=== PATIENT | female | born 1965 | race Two or more races ===

== ENCOUNTER → 2016-04-20 | Outpatient (CLI) | payer BC ==
[2016-04-20 10:05] LABS: Basophils % (A) 1 %; CH 24.4; CHCM 31.5; Eosinophils # (A) 0.3 k/uL (0-0.7); Eosinophils % (A) 5 %; HCT 39.8 % (34.0-46.0); HDW 2.71; HGB 12.3 gm/dL (11.4-16.0); Hypochromasia Slight; Luc # (Auto) 0.14; Luc % (Auto) 2; Lymphocytes # (A) 3.5 k/uL (1.0-4.8); Lymphocytes % (A) 46 %; MCH 24.1 pg (25.0-35.0); MCHC 30.9 g/dL (31.0-37.0); MCV 78.1 fL (80.0-100.0); Mean Platelet Volume 6.9; Monocytes # (A) 0.5 k/uL (0-1.0); Monocytes % (A) 7 %; Neutrophils # (A) 3.1 k/uL (1.3-7.7); Neutrophils % (A) 41 %; RBC 5.09 m/uL (3.80-5.40); RDW 14.7 % (11.5-15.5); WBC 7.6 k/uL (3.8-10.6); WBC (Perox) 7.66
[2016-04-20 10:55] LABS: ALT 39 U/L (9-52); AST 18 U/L (14-36); Alkaline Phosphatase 98 U/L (38-126); Anion Gap 14 mmol/L; Blood Urea Nitrogen 13 mg/dL (7-17); C Reactive Protein 11.5 mg/L (<10.0); Calcium 10.1 mg/dL (8.4-10.2); Carbon Dioxide 25 mmol/L (22-30); Chloride 103 mmol/L (98-107); Cholesterol 137 mg/dL (<200); Glucose 131 mg/dL (74-99); HDL Cholesterol 56 mg/dL (40-60); Magnesium 1.7 mg/dL (1.6-2.3); Non-African American GFR(MDRD) >60 (>60 ml/min/1.73 sqM); Potassium 4.6 mmol/L (3.5-5.1); Sodium 142 mmol/L (137-145); Total Bilirubin 0.3 mg/dL (0.2-1.3); Total Protein 7.9 g/dL (6.3-8.2); Triglycerides 146 mg/dL (<150)
[2016-04-20 11:12] LABS: Erythrocyte Sedimentation Rate 20 mm/hr (0-20)
[2016-04-20 11:13] LABS: Hemoglobin A1C 8.1 % (4.2-6.1)
== END | disposition home or self-care (01) ==
LOC: MERGE 08:51 → LABWHC1 08:51
PROVIDERS: ATTEND Internal Medicine
DX: E11.9 Type 2 diabetes mellitus without complications (principal); E78.5 Hyperlipidemia, unspecified; I10 Essential (primary) hypertension; E55.9 Vitamin D deficiency, unspecified
CPT/HCPCS: 36415; 80053; 80061; 82306; 83036; 83735; 85025; 85652; 86140

== ENCOUNTER → 2016-05-21 | Outpatient (CLI) | payer BC, OTHER ==
--- NOTE | 2016-05-21 10:57 | FL ---
EXAMINATION TYPE: FL UGI w esophagus w sm bowel DATE OF EXAM: 05/21/2016 10:49 AM COMPARISON: Abdominal x-ray February 26, 2016. HISTORY: Epigastric pain per order. Mid abdominal pain with heartburn and reflux-like symptoms. TECHNIQUE: A double contrast UGI study is performed with small bowel follow through. A total of 56 s econds of fluoroscopic time was utilized during procedure. FINDINGS: Engineering Production Worker image of the abdomen shows no gross abnormality. The esophagus shows normal motility and emptying into the stomach. No evidence of hiatal hernia or s tricture noted. The stomach shows normal distensibility, peristalsis, and mucosal folds. No evidence of any mass or ulcer disease. A few episodes of gastroesophageal reflux were seen during real-time performance of st udy. The duodenal bulb and sweep are unremarkable. The small bowel study shows normal transit to the colon in less than 60 minutes. There is normal muc osal fold pattern throughout the small bowel. There is no evidence of any stricture or filling defec t noted. The terminal ileum is unremarkable. IMPRESSION: Gastroesophageal reflux is visualized otherwise unremarkable study.
== END | disposition home or self-care (01) ==
LOC: RADFLMAIN 09:06
PROVIDERS: ATTEND Internal Medicine
DX: K21.9 Gastro-esophageal reflux disease without esophagitis (principal)
CPT/HCPCS: 74245

== ENCOUNTER → 2016-08-17 | Outpatient (CLI) | payer BC ==
[2016-08-17 14:42] LABS: Basophils # (A) 0.1 k/uL (0-0.2); Basophils % (A) 1 %; CH 24.4; CHCM 31.8; Eosinophils # (A) 0.4 k/uL (0-0.7); Eosinophils % (A) 5 %; HCT 40.6 % (34.0-46.0); HDW 2.56; HGB 12.8 gm/dL (11.4-16.0); Luc # (Auto) 0.19; Luc % (Auto) 2; Lymphocytes # (A) 3.9 k/uL (1.0-4.8); Lymphocytes % (A) 51 %; MCH 24.2 pg (25.0-35.0); MCHC 31.4 g/dL (31.0-37.0); MCV 77.2 fL (80.0-100.0); Mean Platelet Volume 6.4; Monocytes # (A) 0.4 k/uL (0-1.0); Monocytes % (A) 5 %; Neutrophils # (A) 2.8 k/uL (1.3-7.7); Neutrophils % (A) 36 %; RBC 5.26 m/uL (3.80-5.40); RDW 14.4 % (11.5-15.5); WBC 7.7 k/uL (3.8-10.6); WBC (Perox) 7.42
[2016-08-17 15:00] LABS: Creatinine,Urine Random 237.5 mg/dL
[2016-08-17 15:01] LABS: ALT 31 U/L (9-52); AST 21 U/L (14-36); Alkaline Phosphatase 96 U/L (38-126); Anion Gap 13 mmol/L; Appearance,Urine Clear (Clear); Bilirubin,Urine Negative (Negative); Blood Urea Nitrogen 8 mg/dL (7-17); Calcium 9.8 mg/dL (8.4-10.2); Carbon Dioxide 25 mmol/L (22-30); Chloride 104 mmol/L (98-107); Glucose 190 mg/dL (74-99); Glucose,Urine (UA) Negative (Negative); Ketones,Urine Negative (Negative); Leukocyte Esterase,Urine Trace (Negative); Mucus,Urine Many /hpf; Nitrite,Urine Negative (Negative); Non-African American GFR(MDRD) >60 (>60 ml/min/1.73 sqM); Particle Count 6332; Potassium 4.8 mmol/L (3.5-5.1); Protein,Urine 2+ (Negative); RBC,Urine 10 /hpf (0-5); Sodium 142 mmol/L (137-145); Specific Gravity,Urine 1.019 (1.001-1.035); Squamous Epithelial Cell,Urine 3 /hpf (0-4); Total Bilirubin 0.5 mg/dL (0.2-1.3); Total Protein 7.7 g/dL (6.3-8.2); UA Billing (MACRO vs. MICRO) MICRO; Urobilinogen,Urine <2.0 mg/dL (<2.0); WBC,Urine 1 /hpf (0-5)
[2016-08-17 16:10] LABS: Erythrocyte Sedimentation Rate 10 mm/hr (0-20)
[2016-08-17 21:37] LABS: Hemoglobin A1C 8.1 % (4.2-6.1)
== END | disposition home or self-care (01) ==
LOC: LABWHC1 14:22
PROVIDERS: ATTEND Internal Medicine
DX: E11.9 Type 2 diabetes mellitus without complications (principal); R31.9 Hematuria, unspecified; R80.9 Proteinuria, unspecified
CPT/HCPCS: 36415; 80053; 81001; 82570; 83036; 84156; 85025; 85652; 87086

== ENCOUNTER → 2016-09-10 | Outpatient (CLI) | payer BC ==
--- NOTE | 2016-09-10 16:42 | US ---
EXAMINATION TYPE: US kidneys/renal and bladder DATE OF EXAM: 09/10/2016 COMPARISON: x-ray CLINICAL HISTORY: R10.9 Ovidio Flank Pain, R31.9 Hematuria. EXAM MEASUREMENTS: Right Kidney: 11.3 x 4.8 x 4.5 cm Left Kidney: 10.7 x 4.9 x 4.9 cm Right Kidney: No hydronephrosis or masses seen Left Kidney: No hydronephrosis or masses seen Bladder: wnl There is no evidence for hydronephrosis at this point in time. No nephrolithiasis is seen. No shekhar s are identified. The urinary bladder is anechoic. Bilateral ureteral jets are not seen. IMPRESSION: No hydronephrosis is seen bilaterally. No significant finding is seen to account for patient's sympto ms.
== END | disposition home or self-care (01) ==
LOC: RADUSWWP 16:06
PROVIDERS: ATTEND Internal Medicine
DX: R10.9 Unspecified abdominal pain (principal); R31.9 Hematuria, unspecified
CPT/HCPCS: 76770

== ENCOUNTER 2016-11-06 16:53 | Emergency (ER) | payer BC, OTHER ==
[2016-11-06 17:08] LABS: Glucose,Whole Blood 317 mg/dL (75-99)
[2016-11-06] MEDS ORDERED: SODIUM CHLORIDE 0.9% 1,000 ML IV STA ×2 (17:13→18:12)
--- NOTE | 2016-11-06 17:17 | ED ---
Dizziness HPI - General Chief Complaint: Dizziness Stated Complaint: Dizziness,Headache,Abd Pain Time Seen by Provider: 11/06/16 17:07 Source: patient, family, RN notes reviewed, old records reviewed Mode of arrival: ambulatory Limitations: language barrier - History of Present Illness Initial Comments: This is a 51-year-old female who was brought in for evaluation for dizziness headache chest pain sore throat. The dizziness apparently started today she's had a frontal type headache and sore throat over last 3 days . She also has some chest discomfort no overt fevers cough phlegm production abdominal pain or other symptoms at this time. Information was obtained by her who interpreted for her. MD Complaint: dizziness, lightheadedness, other - Related Data Home Medications Medication Instructions Recorded Confirmed Glimepiride [Amaryl] 1 mg PO AC-SUPPER 11/06/16 11/06/16 Glimepiride [Amaryl] 2 mg PO AC-BRKFST 11/06/16 11/06/16 Ibuprofen [Motrin] 600 mg PO TID PRN 11/06/16 11/06/16 Loratadine 10 mg PO DAILY 11/06/16 11/06/16 Allergies Allergy/AdvReac Type Severity Reaction Status Date / Time No Known Allergies Allergy Verified 11/06/16 17:20 Review of Systems ROS Statement: Those systems with pertinent positive or pertinent negative responses have been documented in the HPI. ROS Other: All systems not noted in ROS Statement are negative. Past Medical History Past Medical History: Diabetes Mellitus, GERD/Reflux, Hyperlipidemia, Hypertension History of Any Multi-Drug Resistant Organisms: None Reported Past Surgical History: No Surgical Hx Reported Additional Past Surgical History / Comment(s): removal of breast, unk if CA Past Psychological History: No Psychological Hx Reported Smoking Status: Never smoker Past Alcohol Use History: None Reported Past Drug Use History: None Reported General Exam - General Exam Comments Initial Comments: This is a well-developed well-nourished awake alert female Limitations: language barrier General appearance: alert, in no apparent distress Head exam: Present: atraumatic, normocephalic, normal inspection Eye exam: Present: normal appearance, PERRL, EOMI. Absent: scleral icterus, conjunctival injection, periorbital swelling ENT exam: Present: mucous membranes moist, other (The TMs are dull bilaterally.) Neck exam: Present: normal inspection. Absent: tenderness, meningismus, lymphadenopathy Respiratory exam: Present: normal lung sounds bilaterally. Absent: respiratory distress, wheezes, rales, rhonchi, stridor Cardiovascular Exam: Present: regular rate, normal rhythm, normal heart sounds. Absent: systolic murmur, diastolic murmur, rubs, gallop, clicks GI/Abdominal exam: Present: soft, normal bowel sounds. Absent: distended, tenderness, guarding, rebound, rigid Extremities exam: Present: normal inspection, full ROM, normal capillary refill. Absent: tenderness, pedal edema, joint swelling, calf tenderness Back exam: Present: normal inspection Neurological exam: Present: alert, oriented X3, CN II-XII intact Psychiatric exam: Present: normal affect, normal mood Skin exam: Present: warm, dry, intact, normal color. Absent: rash Course Vital Signs 11/06/16 16:56 Temperature 98.2 F Pulse Rate 78 Respiratory 20 Rate Blood Pressure 133/70 O2 Sat by Pulse 98 Oximetry EKG Findings - EKG Results: EKG: interpreted by KAITLIN MIKE, sinus rhythm, normal axis, normal QRS, normal ST/ T, no acute changes (Normal sinus rhythm rate 76. Interval 150 QRS 80 QT since QTC of 396/445 this is a normal-appearing EKG.) Medical Decision Making - Medical Decision Making I did discuss findings with the patient through the who interpreted patient does have a history of hyperglycemia she is supposed be on oral medication but apparently she's been breaking it in half only taking half the dose. She also demonstrates evidence of dehydration she will be discharged after IV fluids and IV insulin she is to keep her follow-up with Dr. Mcgill this coming week as planned. - Lab Data Result diagrams: 11/06/16 17:10 11/06/16 17:10 Lab Results 11/06/16 11/06/16 11/06/16 Range/Units 17:06 17:10 17:10 WBC 7.5 (3.8-10.6) k/uL RBC 4.98 (3.80-5.40) m/uL Hgb 12.4 (11.4-16.0) gm/dL Hct 38.0 (34.0-46.0) % MCV 76.3 L (80.0-100.0) fL MCH 24.8 L (25.0-35.0) pg MCHC 32.5 (31.0-37.0) g/dL RDW 15.2 (11.5-15.5) % Plt Count 413 (150-450) k/uL Neutrophils % 50 % Lymphocytes % 41 % Monocytes % 5 % Eosinophils % 2 % Basophils % 1 % Neutrophils # 3.7 (1.3-7.7) k/uL Lymphocytes # 3.1 (1.0-4.8) k/uL Monocytes # 0.4 (0-1.0) k/uL Eosinophils # 0.2 (0-0.7) k/uL Basophils # 0.0 (0-0.2) k/uL Microcytosis Slight Sodium (137-145) mmol/L Potassium (3.5-5.1) mmol/L Chloride (98-107) mmol/L Carbon Dioxide (22-30) mmol/L Anion Gap mmol/L BUN (7-17) mg/dL Creatinine (0.52-1.04) mg/dL Est GFR (MDRD) Af Amer (>60 ml/min/1.73 sqM) Est GFR (MDRD) Non-Af (>60 ml/min/1.73 sqM) Glucose (74-99) mg/dL POC Glucose (mg/dL) 317 H (75-99) mg/dL POC Glu Apartment Maintenance Manager ID Andria Delaney Calcium (8.4-10.2) mg/dL Magnesium (1.6-2.3) mg/dL Total Bilirubin (0.2-1.3) mg/dL AST (14-36) U/L ALT (9-52) U/L Alkaline Phosphatase (38-126) U/L Total Creatine Kinase 41 (30-135) U/L CK-MB (CK-2) <0.2 (0.0-2.4) ng/mL CK-MB (CK-2) Rel Index Troponin I <0.012 (0.000-0.034) ng/mL Total Protein (6.3-8.2) g/dL Albumin (3.5-5.0) g/dL Urine Color Urine Appearance (Clear) Urine pH (5.0-8.0) Ur Specific [place] (1.001-1.035) Urine Protein (Negative) Urine Glucose (UA) (Negative) Urine Ketones (Negative) Urine Blood (Negative) Urine Nitrite (Negative) Urine Bilirubin (Negative) Urine Urobilinogen (<2.0) mg/dL Ur Leukocyte Esterase (Negative) Urine RBC (0-5) /hpf Ur Squamous Epith Cells (0-4) /hpf 11/06/16 11/06/16 Range/Units 17:10 17:20 WBC (3.8-10.6) k/uL RBC (3.80-5.40) m/uL Hgb (11.4-16.0) gm/dL Hct (34.0-46.0) % MCV (80.0-100.0) fL MCH (25.0-35.0) pg MCHC (31.0-37.0) g/dL RDW (11.5-15.5) % Plt Count (150-450) k/uL Neutrophils % % Lymphocytes % % Monocytes % % Eosinophils % % Basophils % % Neutrophils # (1.3-7.7) k/uL Lymphocytes # (1.0-4.8) k/uL Monocytes # (0-1.0) k/uL Eosinophils # (0-0.7) k/uL Basophils # (0-0.2) k/uL Microcytosis Sodium 136 L (137-145) mmol/L Potassium 4.5 (3.5-5.1) mmol/L Chloride 101 (98-107) mmol/L Carbon Dioxide 22 (22-30) mmol/L Anion Gap 13 mmol/L BUN 11 (7-17) mg/dL Creatinine 0.53 (0.52-1.04) mg/dL Est GFR (MDRD) Af Amer >60 (>60 ml/min/1.73 sqM) Est GFR (MDRD) Non-Af >60 (>60 ml/min/1.73 sqM) Glucose 352 H (74-99) mg/dL POC Glucose (mg/dL) (75-99) mg/dL POC Glu Apartment Maintenance Manager ID Calcium 9.4 (8.4-10.2) mg/dL Magnesium 1.7 (1.6-2.3) mg/dL Total Bilirubin 0.3 (0.2-1.3) mg/dL AST 27 (14-36) U/L ALT 40 (9-52) U/L Alkaline Phosphatase 77 (38-126) U/L Total Creatine Kinase (30-135) U/L CK-MB (CK-2) (0.0-2.4) ng/mL CK-MB (CK-2) Rel Index Troponin I (0.000-0.034) ng/mL Total Protein 7.5 (6.3-8.2) g/dL Albumin 4.2 (3.5-5.0) g/dL Urine Color Yellow Urine Appearance Clear (Clear) Urine pH 6.0 (5.0-8.0) Ur Specific [place] 1.020 (1.001-1.035) Urine Protein Negative (Negative) Urine Glucose (UA) 4+ H (Negative) Urine Ketones Negative (Negative) Urine Blood Small H (Negative) Urine Nitrite Negative (Negative) Urine Bilirubin Negative (Negative) Urine Urobilinogen <2.0 (<2.0) mg/dL Ur Leukocyte Esterase Negative (Negative) Urine RBC 12 H (0-5) /hpf Ur Squamous Epith Cells <1 (0-4) /hpf - Radiology Data Radiology results: report reviewed (I did review the imaging and report no acute findings.), image reviewed Disposition Clinical Impression: Hyperglycemia, Dehydration, Dizzy Disposition: HOME SELF-CARE Condition: Good Instructions: Dizziness (ED), Diabetic Hyperglycemia (ED), Dehydration (ED) Referrals: James Mcgill MD [Primary Care Provider] - 1-2 days
[2016-11-06 17:26] LABS: Basophils % (A) 1 %; CHCM 32.9; Eosinophils # (A) 0.2 k/uL (0-0.7); Eosinophils % (A) 2 %; HDW 2.67; HGB 12.4 gm/dL (11.4-16.0); Luc # (Auto) 0.15; Luc % (Auto) 2; Lymphocytes # (A) 3.1 k/uL (1.0-4.8); Lymphocytes % (A) 41 %; MCH 24.8 pg (25.0-35.0); MCHC 32.5 g/dL (31.0-37.0); MCV 76.3 fL (80.0-100.0); Mean Platelet Volume 6.8; Microcytosis Slight; Monocytes # (A) 0.4 k/uL (0-1.0); Monocytes % (A) 5 %; Neutrophils # (A) 3.7 k/uL (1.3-7.7); Neutrophils % (A) 50 %; RBC 4.98 m/uL (3.80-5.40); RDW 15.2 % (11.5-15.5); WBC 7.5 k/uL (3.8-10.6); WBC (Perox) 8.02
[2016-11-06 17:34] LABS: ALT 40 U/L (9-52); AST 27 U/L (14-36); Alkaline Phosphatase 77 U/L (38-126); Anion Gap 13 mmol/L; Blood Urea Nitrogen 11 mg/dL (7-17); Calcium 9.4 mg/dL (8.4-10.2); Carbon Dioxide 22 mmol/L (22-30); Chloride 101 mmol/L (98-107); Glucose 352 mg/dL (74-99); Magnesium 1.7 mg/dL (1.6-2.3); Non-African American GFR(MDRD) >60 (>60 ml/min/1.73 sqM); Potassium 4.5 mmol/L (3.5-5.1); Sodium 136 mmol/L (137-145); Total Bilirubin 0.3 mg/dL (0.2-1.3); Total Protein 7.5 g/dL (6.3-8.2)
[2016-11-06 17:45] LABS: Appearance,Urine Clear (Clear); Bilirubin,Urine Negative (Negative); Glucose,Urine (UA) 4+ (Negative); Ketones,Urine Negative (Negative); Leukocyte Esterase,Urine Negative (Negative); Nitrite,Urine Negative (Negative); Particle Count 243; Protein,Urine Negative (Negative); RBC,Urine 12 /hpf (0-5); Squamous Epithelial Cell,Urine <1 /hpf (0-4); UA Billing (MACRO vs. MICRO) MICRO; Urobilinogen,Urine <2.0 mg/dL (<2.0)
[2016-11-06 17:49] LABS: Creatine Kinase 41 U/L (30-135)
--- NOTE | 2016-11-06 17:54 | XR ---
EXAMINATION TYPE: XR chest 2V DATE OF EXAM: 11/06/2016 COMPARISON: Prior chest x-ray 02/26/2016 HISTORY: Cough and congestion TECHNIQUE: Frontal and lateral views of the chest are obtained. FINDINGS: There is no focal air space opacity, pleural effusion, or pneumothorax seen. The cardiac silhouette size is within normal limits. There are overlying cardiac leads. Interval development of m ultiple small calcified nodules in the left lung. Patient is rotated. The osseous structures are inta ct. IMPRESSION: Findings suggest granulomatous disease, correlate.
[2016-11-06] MEDS ORDERED: KETOROLAC 30 MG/ML 1 ML VIAL IVP STA (17:59)
[2016-11-06 18:02] LABS: Creatine Kinase MB <0.2 ng/mL (0.0-2.4); Troponin I <0.012 ng/mL (0.000-0.034)
[2016-11-06] MEDS ORDERED: INSULIN REGULAR 100 UNIT/ML VIAL IV ONE (18:22)
[2016-11-06 19:08] LABS: Glucose,Whole Blood 141 mg/dL (75-99)
[2016-11-06 19:30] VITALS: BP 151/84; PULSE 77; RESP 16; TEMP 97.5
== END 2016-11-06 19:37 | disposition home or self-care (01) ==
LOC: EC 16:53
DX: E11.65 Type 2 diabetes mellitus with hyperglycemia (principal); E86.0 Dehydration; R07.89 Other chest pain; J02.9 Acute pharyngitis, unspecified; Z79.84 Long term (current) use of oral hypoglycemic drugs; Z79.899 Other long term (current) drug therapy
CPT/HCPCS: 36415; 93005; 80053; 82550; 82553; 83735; 84484; 85025; 81001; 71020; 99285; 96374; 96361 ×2; J1885

== ENCOUNTER 2017-04-30 14:39 | Emergency (ER) | payer BC, OTHER ==
[2017-04-30] MEDS ORDERED: MORPHINE SULFATE 4 MG/ML SYRINGE IVP STA (15:06)
[2017-04-30] MEDS ORDERED: ONDANSETRON 4 MG/2 ML VIAL IVP STA (15:06)
[2017-04-30] MEDS ORDERED: SODIUM CHLORIDE 0.9% 1,000 ML IV STA ×2 (15:06)
--- NOTE | 2017-04-30 15:14 | ED ---
Abdominal Pain HPI - General Chief Complaint: Abdominal Pain Stated Complaint: Abd pain Time Seen by Provider: 04/30/17 14:53 Source: patient Mode of arrival: ambulatory Limitations: language barrier - History of Present Illness Initial Comments: 51 years old female Turkish is not her mother language both and speaks very broken Turkish presented with the abdominal pain she said pain is affecting her whole abdomen, she had a fever and chills and some discomfort on the flank areas as well as dysuria, had no previous abdominal surgeries she does have a history of diabetes and hypertension denies any history of kidney stones this pain been ongoing for 3 days now today got worse. No headaches no neck stiffness no chest pain had abdominal pain has dysuria frequency urgency no symptoms of TIA or CVA - Related Data Home Medications Medication Instructions Recorded Confirmed Glimepiride [Amaryl] 1 mg PO AC-SUPPER 11/06/16 04/30/17 Glimepiride [Amaryl] 2 mg PO AC-BRKFST 11/06/16 04/30/17 Loratadine 10 mg PO DAILY 11/06/16 04/30/17 Atorvastatin [Lipitor] 20 mg PO DAILY 04/30/17 04/30/17 Esomeprazole Magnesium [NexIUM] 40 mg PO DAILY 04/30/17 04/30/17 Olopatadine HCl [Patanol] 1 drop BOTH EYES BID 04/30/17 04/30/17 amLODIPine [Norvasc] 10 mg PO DAILY 04/30/17 04/30/17 sitaGLIPtin [Januvia] 100 mg PO DAILY 04/30/17 04/30/17 Previous Rx's Medication Instructions Recorded Ciprofloxacin HCl [Cipro] 500 mg PO Q12HR #14 tablet 04/30/17 Allergies Allergy/AdvReac Type Severity Reaction Status Date / Time No Known Allergies Allergy Verified 04/30/17 14:56 Review of Systems ROS Statement: Those systems with pertinent positive or pertinent negative responses have been documented in the HPI. ROS Other: All systems not noted in ROS Statement are negative. Past Medical History Past Medical History: Diabetes Mellitus, GERD/Reflux, Hyperlipidemia, Hypertension History of Any Multi-Drug Resistant Organisms: None Reported Past Surgical History: No Surgical Hx Reported Additional Past Surgical History / Comment(s): removal of breast, unk if CA Past Psychological History: No Psychological Hx Reported Smoking Status: Never smoker Past Alcohol Use History: None Reported Past Drug Use History: None Reported General Exam - General Exam Comments Initial Comments: General: The patient is awake and alert, in no distress, and does not appear acutely ill. Skin: Skin is warm and dry and no rashes or lesions are noted. Eye: Pupils are equal, round and reactive to light, extra-ocular movements are intact; there is normal conjunctiva bilaterally. Ears, nose, mouth and throat: There are moist mucous membranes and no oral lesions. Neck: The neck is supple, there is no tenderness or JVD. Cardiovascular: There is a regular rate and rhythm. No murmur, rub or gallop is appreciated. Respiratory: To auscultation bilateral, no wheezing no rhonchi no distress respiratory ritter noticed Gastrointestinal: Diffusely tender all over and noticed some more tenderness in the right lower quadrant area and suprapubic area positive bowel sounds no guarding no rebound. Back: There is no tenderness to palpation in the midline. There is no obvious deformity. Musculoskeletal: Normal ROM, no tenderness, There is no pedal edema. There is no calf tenderness or swelling. No cords were appreciated. Neurological: CN II-XII intact, Cranial nerves III through XII are intact. There are no obvious motor or sensory deficits. Coordination appears grossly intact. Speech is normal. Psychiatric: Cooperative, appropriate mood & affect, normal judgment. Limitations: language barrier Course Vital Signs 04/30/17 04/30/17 14:43 17:34 Temperature 98.3 F Pulse Rate 84 72 Respiratory 20 20 Rate Blood Pressure 145/73 146/67 O2 Sat by Pulse 100 97 Oximetry Patient been reassessed 3 times, CT abdomen is pending , as soon as we get the CT abdomen report the disposition will be finalized - Reevaluation(s) Reevaluation #1: Patient is reassessed at term 1830, CT abdomen is still pending 04/30/17 18:29 04/30/17 18:46 Patient is reassessed at term 1850, CT abdomen and pelvis is still pending, will call the radiology and try to expedite it 04/30/17 19:18 CT of the abdomen and pelvis report reviewed noticed there comments about the bladder she be treated with the UTIs and the Cipro 500 twice daily for next 7 days and she be referred to Dr. Cazares Medical Decision Making - Lab Data Result diagrams: 04/30/17 16:17 04/30/17 16:17 Lab Results 04/30/17 04/30/17 04/30/17 Range/Units 15:20 15:51 15:51 WBC (3.8-10.6) k/uL RBC (3.80-5.40) m/uL Hgb (11.4-16.0) gm/dL Hct (34.0-46.0) % MCV (80.0-100.0) fL MCH (25.0-35.0) pg MCHC (31.0-37.0) g/dL RDW (11.5-15.5) % Plt Count (150-450) k/uL Neutrophils % % Lymphocytes % % Monocytes % % Eosinophils % % Basophils % % Neutrophils # (1.3-7.7) k/uL Lymphocytes # (1.0-4.8) k/uL Monocytes # (0-1.0) k/uL Eosinophils # (0-0.7) k/uL Basophils # (0-0.2) k/uL Microcytosis Sodium (137-145) mmol/L Potassium (3.5-5.1) mmol/L Chloride (98-107) mmol/L Carbon Dioxide (22-30) mmol/L Anion Gap mmol/L BUN (7-17) mg/dL Creatinine (0.52-1.04) mg/dL Est GFR (MDRD) Af Amer (>60 ml/min/1.73 sqM) Est GFR (MDRD) Non-Af (>60 ml/min/1.73 sqM) Glucose (74-99) mg/dL Lactic Ac Sepsis Rflx Y Plasma Lactic Acid Nadir 2.9 H* (0.7-2.0) mmol/L Calcium (8.4-10.2) mg/dL Total Bilirubin (0.2-1.3) mg/dL AST (14-36) U/L ALT (9-52) U/L Alkaline Phosphatase (38-126) U/L C-Reactive Protein (<10.0) mg/L Total Protein (6.3-8.2) g/dL Albumin (3.5-5.0) g/dL Amylase (30-110) U/L Lipase (23-300) U/L Urine Color Yellow Urine Appearance Clear (Clear) Urine pH 6.0 (5.0-8.0) Ur Specific [place] 1.017 (1.001-1.035) Urine Protein 1+ H (Negative) Urine Glucose (UA) 4+ H (Negative) Urine Ketones Negative (Negative) Urine Blood Moderate H (Negative) Urine Nitrite Negative (Negative) Urine Bilirubin Negative (Negative) Urine Urobilinogen <2.0 (<2.0) mg/dL Ur Leukocyte Esterase Small H (Negative) Urine RBC 15 H (0-5) /hpf Urine WBC 32 H (0-5) /hpf Ur Squamous Epith Cells 1 (0-4) /hpf Urine Mucus Rare H (None) /hpf 04/30/17 04/30/17 Range/Units 16:17 16:17 WBC 10.9 H (3.8-10.6) k/uL RBC 5.38 (3.80-5.40) m/uL Hgb 13.0 (11.4-16.0) gm/dL Hct 40.7 (34.0-46.0) % MCV 75.7 L (80.0-100.0) fL MCH 24.1 L (25.0-35.0) pg MCHC 31.9 (31.0-37.0) g/dL RDW 15.4 (11.5-15.5) % Plt Count 406 (150-450) k/uL Neutrophils % 60 % Lymphocytes % 32 % Monocytes % 4 % Eosinophils % 2 % Basophils % 0 % Neutrophils # 6.5 (1.3-7.7) k/uL Lymphocytes # 3.5 (1.0-4.8) k/uL Monocytes # 0.5 (0-1.0) k/uL Eosinophils # 0.3 (0-0.7) k/uL Basophils # 0.0 (0-0.2) k/uL Microcytosis Slight Sodium 138 (137-145) mmol/L Potassium 3.8 (3.5-5.1) mmol/L Chloride 104 (98-107) mmol/L Carbon Dioxide 21 L (22-30) mmol/L Anion Gap 13 mmol/L BUN 9 (7-17) mg/dL Creatinine 0.50 L (0.52-1.04) mg/dL Est GFR (MDRD) Af Amer >60 (>60 ml/min/1.73 sqM) Est GFR (MDRD) Non-Af >60 (>60 ml/min/1.73 sqM) Glucose 375 H (74-99) mg/dL Lactic Ac Sepsis Rflx Plasma Lactic Acid Nadir (0.7-2.0) mmol/L Calcium 9.6 (8.4-10.2) mg/dL Total Bilirubin 0.4 (0.2-1.3) mg/dL AST 15 (14-36) U/L ALT 21 (9-52) U/L Alkaline Phosphatase 98 (38-126) U/L C-Reactive Protein 16.4 H (<10.0) mg/L Total Protein 7.1 (6.3-8.2) g/dL Albumin 3.9 (3.5-5.0) g/dL Amylase 47 (30-110) U/L Lipase 185 (23-300) U/L Urine Color Urine Appearance (Clear) Urine pH (5.0-8.0) Ur Specific [place] (1.001-1.035) Urine Protein (Negative) Urine Glucose (UA) (Negative) Urine Ketones (Negative) Urine Blood (Negative) Urine Nitrite (Negative) Urine Bilirubin (Negative) Urine Urobilinogen (<2.0) mg/dL Ur Leukocyte Esterase (Negative) Urine RBC (0-5) /hpf Urine WBC (0-5) /hpf Ur Squamous Epith Cells (0-4) /hpf Urine Mucus (None) /hpf Disposition Clinical Impression: Abdominal pain, Cystitis Disposition: HOME SELF-CARE Condition: Good Instructions: Abdominal Pain (ED) Prescriptions: Ciprofloxacin HCl [Cipro] 500 mg PO Q12HR #14 tablet Referrals: Alexx Caldera MD [Primary Care Provider] - 1-2 days Dominic Cazares MD [STAFF PHYSICIAN] - 1-2 days
[2017-04-30] MEDS ORDERED: SODIUM CHLORIDE 0.9% 1,000 ML IV ONE (15:58)
[2017-04-30] MEDS ORDERED: RX INFO: IV CONTRAST WAS GIVEN 1 EACH MISC MISCELLANE PRN (15:59)
[2017-04-30] MEDS ORDERED: SODIUM CHLORIDE 0.9% 1,000 ML IV SCH (16:00)
[2017-04-30] MEDS ORDERED: cefTRIAXone IN SWFI 1,000 MG/10 ML SYRINGE IVP STA (16:00)
[2017-04-30] MEDS ORDERED: cefTRIAXone IN SWFI 2,000 MG/20 ML SYRINGE IVP STA (16:02)
--- NOTE | 2017-04-30 16:07 | XR ---
EXAMINATION TYPE: XR abdomen acute w cxr DATE OF EXAM: 04/30/2017 COMPARISON: NONE HISTORY: Abdomen pain difficulty urinating TECHNIQUE: Acute abdominal series performed in the supine and upright view the abdomen and supplement al frontal chest FINDINGS: No free air is evident. No differential air-fluid levels are present. Normal colonic bowel gas is present. No mass effect is evident. Psoas margins are normal. Organomegaly is not evident. No suspicious calcifications are evident. Lung eric appear clear. IMPRESSION: 1. Unremarkable acute abdominal series.
[2017-04-30 16:18] LABS: Appearance,Urine Clear (Clear); Bilirubin,Urine Negative (Negative); Blood,Urine Moderate (Negative); Color,Urine Yellow; Glucose,Urine (UA) 4+ (Negative); Ketones,Urine Negative (Negative); Leukocyte Esterase,Urine Small (Negative); Mucus,Urine Rare /hpf; Protein,Urine 1+ (Negative); RBC,Urine 15 /hpf (0-5); Specific Gravity,Urine 1.017 (1.001-1.035); Squamous Epithelial Cell,Urine 1 /hpf (0-4); Urobilinogen,Urine <2.0 mg/dL (<2.0); WBC,Urine 32 /hpf (0-5)
[2017-04-30 16:25] LABS: Basophils % (A) 0 %; Eosinophils # (A) 0.3 k/uL (0-0.7); Eosinophils % (A) 2 %; HCT 40.7 % (34.0-46.0); Lymphocytes # (A) 3.5 k/uL (1.0-4.8); Lymphocytes % (A) 32 %; MCH 24.1 pg (25.0-35.0); MCHC 31.9 g/dL (31.0-37.0); MCV 75.7 fL (80.0-100.0); Mean Platelet Volume 7.7; Microcytosis Slight; Monocytes # (A) 0.5 k/uL (0-1.0); Monocytes % (A) 4 %; Neutrophils # (A) 6.5 k/uL (1.3-7.7); Neutrophils % (A) 60 %; Platelet Count 406 k/uL (150-450); RBC 5.38 m/uL (3.80-5.40); RDW 15.4 % (11.5-15.5); WBC 10.9 k/uL (3.8-10.6)
[2017-04-30 16:38] LABS: ALT 21 U/L (9-52); AST 15 U/L (14-36); Albumin 3.9 g/dL (3.5-5.0); Alkaline Phosphatase 98 U/L (38-126); Amylase 47 U/L (30-110); Anion Gap 13 mmol/L; Blood Urea Nitrogen 9 mg/dL (7-17); C Reactive Protein 16.4 mg/L (<10.0); Calcium 9.6 mg/dL (8.4-10.2); Carbon Dioxide 21 mmol/L (22-30); Chloride 104 mmol/L (98-107); Glucose 375 mg/dL (74-99); Lipase 185 U/L (23-300); Potassium 3.8 mmol/L (3.5-5.1); Sodium 138 mmol/L (137-145); Total Bilirubin 0.4 mg/dL (0.2-1.3); Total Protein 7.1 g/dL (6.3-8.2)
--- NOTE | 2017-04-30 19:04 | CT ---
EXAMINATION TYPE: CT abdomen pelvis w con DATE OF EXAM: 04/30/2017 COMPARISON: NONE INDICATION: Generalized abdominal pain and difficulty urinating x 3 days. DLP: 1338.00 mGycm, Automated exposure control for dose reduction was used. CONTRAST: 100 mL of Omnipaque 300. Study performed without Oral Contrast TECHNIQUE: Axial images were obtained from above the diaphragm to the pubic rami in the axial plane a t 5 mm thick sections. Reconstructed images are reviewed on the computer in the coronal plane. FINDINGS: Limited CT sections are obtained the lung bases. The lung bases are clear. CT ABDOMEN: Liver: Normal Spleen: Normal Pancreas: Normal Adrenal glands: The adrenal glands are normal. Gallbladder: Normal Kidneys: No masses are evident. No hydronephrosis is present. No cysts are present. Delayed images were obtained through the kidneys, which remain unremarkable. Aorta: Vascular calcification is within the aorta. Inferior vena cava: Normal. CT PELVIS: Loops of bowel within the abdomen and pelvis are normal. There are loops of bowel which are incom pletely distended or lack oral contrast limiting their evaluation. Scattered diverticuli are present without acute diverticulitis. Appendix: Normal as visualized. Urinary bladder: There is a thickened irregular urinary bladder wall. Underlying mass is not excluded . Cystitis should be considered. Genitourinary structures: Uterus appears normal. Adnexal regions are clear. Osseous structures: No suspicious lytic or sclerotic lesions. IMPRESSIONS: 1. Thickened irregular urinary bladder wall. Correlate for acute cystitis. Neoplasm is not excluded. Additional workup is recommended. 2. Diverticulosis without acute diverticulitis. 3. CT abdomen pelvis otherwise is unremarkable.
[2017-04-30] MEDS ORDERED: INSULIN REGULAR 100 UNIT/ML VIAL SQ ONE (19:08)
[2017-04-30 19:27] LABS: Glucose,Whole Blood 269 mg/dL (75-99)
[2017-04-30 19:47] VITALS: BP 130/78; PULSE 71; RESP 18; TEMP 98.6
== END 2017-04-30 19:45 | disposition home or self-care (01) ==
LOC: EC 14:39
DX: N30.90 Cystitis, unspecified without hematuria (principal); R10.9 Unspecified abdominal pain; E11.9 Type 2 diabetes mellitus without complications; I10 Essential (primary) hypertension; K21.9 Gastro-esophageal reflux disease without esophagitis; E78.5 Hyperlipidemia, unspecified; Z79.84 Long term (current) use of oral hypoglycemic drugs; Z79.899 Other long term (current) drug therapy
CPT/HCPCS: 36415; 80053; 82150; 83605; 83690; 85025; 86140; 81001; 87040; 74022; 74177; 99284; 96374; 96375 ×2; 96361 ×2; J2270; J2405; J0696; Q9967

== ENCOUNTER → 2017-07-09 | Outpatient (CLI) | payer BC, OTHER ==
[2017-07-09 11:54] LABS: HCT 41.2 % (34.0-46.0); HGB 13.3 gm/dL (11.4-16.0); MCH 25.4 pg (25.0-35.0); MCHC 32.3 g/dL (31.0-37.0); MCV 78.4 fL (80.0-100.0); Mean Platelet Volume 6.7; Platelet Count 377 k/uL (150-450); RBC 5.26 m/uL (3.80-5.40); RDW 14.5 % (11.5-15.5); WBC 11.7 k/uL (3.8-10.6)
[2017-07-09 12:09] LABS: ALT 31 U/L (9-52); AST 14 U/L (14-36); Alkaline Phosphatase 53 U/L (38-126); Anion Gap 15 mmol/L; Blood Urea Nitrogen 14 mg/dL (7-17); Calcium 9.8 mg/dL (8.4-10.2); Carbon Dioxide 23 mmol/L (22-30); Chloride 101 mmol/L (98-107); Cholesterol 170 mg/dL (<200); Glucose 262 mg/dL (74-99); HDL Cholesterol 57 mg/dL (40-60); LDL Cholesterol,Calculated 79 mg/dL (0-99); Potassium 3.9 mmol/L (3.5-5.1); Sodium 139 mmol/L (137-145); Total Bilirubin 0.5 mg/dL (0.2-1.3); Total Protein 6.6 g/dL (6.3-8.2); Triglycerides 168 mg/dL (<150)
[2017-07-09 18:19] LABS: Hemoglobin A1C 13.4 % (4.0-6.0)
== END | disposition home or self-care (01) ==
LOC: LABWHC1 11:31
PROVIDERS: ATTEND Internal Medicine
DX: Z00.00 Encounter for general adult medical examination without abnormal findings (principal)
CPT/HCPCS: 36415; 80053; 80061; 82306; 83036; 84443; 85027

== ENCOUNTER 2017-12-13 15:17 | Emergency (ER) | payer BC, OTHER ==
[2017-12-13] MEDS ORDERED: ONDANSETRON 4 MG/2 ML VIAL IVP STA (16:19)
[2017-12-13] MEDS ORDERED: SODIUM CHLORIDE 0.9% 1,000 ML IV STA (16:19)
--- NOTE | 2017-12-13 16:22 | ED ---
Weakness HPI - General Source: patient, RN notes reviewed, old records reviewed Mode of arrival: ambulatory Limitations: language barrier <Angie Quinonez - Last Filed: 12/13/17 17:52> <Jese Brush - Last Filed: 12/13/17 19:46> - General Chief complaint: Weakness Stated complaint: Not feeling good/cold Time Seen by Provider: 12/13/17 16:00 - History of Present Illness Initial comments: Patient is a 52-year-old female presents emergency Department with her with multiple complaints. Patient has been feeling ill for the past 2 weeks. Patient has had complaints of a headache, slight cough. She complains of epigastric abdominal pain. She's had episodes of vomiting as well as diarrhea. She reports that she's had weight loss. She went to see her PCP last week in the ED for 6 pills. Family does not know what the pills were. 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 Patient states that she has had occasional chills chest pain. She has a history of high diabetes and high cholesterol. (Angie Quinonez) - Related Data Home Medications Medication Instructions Recorded Confirmed Glimepiride [Amaryl] 1 mg PO AC-SUPPER 11/06/16 12/13/17 Glimepiride [Amaryl] 2 mg PO AC-BRKFST 11/06/16 12/13/17 Loratadine 10 mg PO DAILY 11/06/16 12/13/17 Atorvastatin [Lipitor] 20 mg PO DAILY 04/30/17 12/13/17 Esomeprazole Magnesium [NexIUM] 40 mg PO DAILY 04/30/17 12/13/17 Olopatadine HCl [Patanol] 1 drop BOTH EYES BID 04/30/17 12/13/17 amLODIPine [Norvasc] 10 mg PO DAILY 04/30/17 12/13/17 sitaGLIPtin [Januvia] 100 mg PO DAILY 04/30/17 12/13/17 Azithromycin [Zithromax Z-pack] See Taper PO DAILY 12/13/17 12/13/17 Previous Rx's Medication Instructions Recorded Ondansetron [Zofran ODT] 4 mg PO Q8HR #10 tab 12/13/17 Allergies Allergy/AdvReac Type Severity Reaction Status Date / Time No Known Allergies Allergy Verified 10/16/18 15:54 Review of Systems ROS Other: All systems not noted in ROS Statement are negative. <Angie Quinonez - Last Filed: 12/13/17 17:52> ROS Other: All systems not noted in ROS Statement are negative. <Jese Brush - Last Filed: 12/13/17 19:46> ROS Statement: Those systems with pertinent positive or pertinent negative responses have been documented in the HPI. Past Medical History Past Medical History: Diabetes Mellitus, GERD/Reflux, Hyperlipidemia, Hypertension History of Any Multi-Drug Resistant Organisms: None Reported Past Surgical History: No Surgical Hx Reported Additional Past Surgical History / Comment(s): removal of breast, unk if CA Past Psychological History: No Psychological Hx Reported Smoking Status: Never smoker Past Alcohol Use History: None Reported Past Drug Use History: None Reported <Angie Quinonez - Last Filed: 12/13/17 17:52> General Exam Limitations: language barrier General appearance: alert Head exam: Present: atraumatic, normocephalic, normal inspection Eye exam: Present: normal appearance ENT exam: Present: normal exam, mucous membranes moist Neck exam: Present: normal inspection Respiratory exam: Present: normal lung sounds bilaterally. Absent: respiratory distress, wheezes, rales, rhonchi, stridor Cardiovascular Exam: Present: regular rate, normal rhythm, normal heart sounds. Absent: systolic murmur, diastolic murmur, rubs, gallop, clicks GI/Abdominal exam: Present: tenderness (Gastric abdominal tenderness.) Extremities exam: Present: normal inspection, full ROM, normal capillary refill. Absent: tenderness, pedal edema, joint swelling, calf tenderness Back exam: Present: normal inspection Neurological exam: Present: alert, oriented X3, CN II-XII intact Psychiatric exam: Present: normal affect, normal mood Skin exam: Present: warm, dry, intact, normal color. Absent: rash <Angie Quinonez - Last Filed: 12/13/17 17:52> <Jese Brush - Last Filed: 12/13/17 19:46> - General Exam Comments Initial Comments: 52-year-old female. (Angie Quinonez) Course <Angie Quinonez - Last Filed: 12/13/17 17:52> <Jese Brush - Last Filed: 12/13/17 19:46> Vital Signs 12/13/17 12/13/17 15:50 18:51 Temperature 97.9 F 98.3 F Pulse Rate 93 86 Respiratory 18 16 Rate Blood Pressure 150/86 147/83 O2 Sat by Pulse 98 98 Oximetry - Reevaluation(s) Reevaluation #1: 12/13/17 19:44 The patient was endorsed me pending x-rays and IV hydration after IV fluids he is much improved the presentation is consistent with dehydration secondary to gastroenteritis. Patient be discharged with follow-up with her PMD. (Jese Brush) Medical Decision Making - Lab Data Result diagrams: 12/13/17 17:06 12/13/17 16:50 <Angie Quinonez - Last Filed: 12/13/17 17:52> - Lab Data Result diagrams: 12/13/17 17:06 12/13/17 16:50 <Jese Brush - Last Filed: 12/13/17 19:46> - Medical Decision Making 32-year-old female presents with multiple complaints. She was upset yesterday abdominal pain as well as chills and body aches and slight cough congestion. At this time Patient also reports she had episodes of diarrhea and vomiting. She does have mildly elevated lactic acid of 3.2. Likely related to dehydration. She was given a 2 L bolus. EKG was reviewed and shows no acute changes. Troponins are negative. Rest for labwork was reviewed and unremarkable. She did have an elevated blood glucose. The Patient 5 units of insulin. Final disposition by Dr. Brush. Currently pending chest x-ray. ( Angie Quinonez) - Lab Data Lab Results 12/13/17 12/13/17 12/13/17 Range/Units 16:50 16:50 16:50 WBC (3.8-10.6) k/uL RBC (3.80-5.40) m/uL Hgb (11.4-16.0) gm/dL Hct (34.0-46.0) % MCV (80.0-100.0) fL MCH (25.0-35.0) pg MCHC (31.0-37.0) g/dL RDW (11.5-15.5) % Plt Count (150-450) k/uL Neutrophils % % Lymphocytes % % Monocytes % % Eosinophils % % Basophils % % Neutrophils # (1.3-7.7) k/uL Lymphocytes # (1.0-4.8) k/uL Monocytes # (0-1.0) k/uL Eosinophils # (0-0.7) k/uL Basophils # (0-0.2) k/uL PT (9.0-12.0) sec INR (<1.2) APTT (22.0-30.0) sec Sodium 137 (137-145) mmol/L Potassium 4.2 (3.5-5.1) mmol/L Chloride 103 (98-107) mmol/L Carbon Dioxide 21 L (22-30) mmol/L Anion Gap 13 mmol/L BUN 11 (7-17) mg/dL Creatinine 0.50 L (0.52-1.04) mg/dL Est GFR (CKD-EPI)AfAm >90 (>60 ml/min/1.73 sqM) Est GFR (CKD-EPI)NonAf >90 (>60 ml/min/1.73 sqM) Glucose 371 H (74-99) mg/dL Plasma Lactic Acid Nadir 3.2 H* (0.7-2.0) mmol/L Calcium 10.1 (8.4-10.2) mg/dL Magnesium 1.8 (1.6-2.3) mg/dL Total Bilirubin 0.6 (0.2-1.3) mg/dL AST 21 (14-36) U/L ALT 29 (9-52) U/L Alkaline Phosphatase 90 (38-126) U/L Total Creatine Kinase 43 (30-135) U/L CK-MB (CK-2) <0.2 (0.0-2.4) ng/mL CK-MB (CK-2) Rel Index Troponin I <0.012 (0.000-0.034) ng/mL Total Protein 7.7 (6.3-8.2) g/dL Albumin 4.4 (3.5-5.0) g/dL Urine Color Urine Appearance (Clear) Urine pH (5.0-8.0) Ur Specific Hunter (1.001-1.035) Urine Protein (Negative) Urine Glucose (UA) (Negative) Urine Ketones (Negative) Urine Blood (Negative) Urine Nitrite (Negative) Urine Bilirubin (Negative) Urine Urobilinogen (<2.0) mg/dL Ur Leukocyte Esterase (Negative) Urine RBC (0-5) /hpf Urine WBC (0-5) /hpf Ur Squamous Epith Cells (0-4) /hpf 12/13/17 12/13/17 12/13/17 Range/Units 16:50 16:50 17:06 WBC 8.4 (3.8-10.6) k/uL RBC 5.72 H (3.80-5.40) m/uL Hgb 14.7 (11.4-16.0) gm/dL Hct 47.1 H (34.0-46.0) % MCV 82.3 (80.0-100.0) fL MCH 25.8 (25.0-35.0) pg MCHC 31.3 (31.0-37.0) g/dL RDW 13.4 (11.5-15.5) % Plt Count 377 (150-450) k/uL Neutrophils % 52 % Lymphocytes % 40 % Monocytes % 4 % Eosinophils % 2 % Basophils % 1 % Neutrophils # 4.4 (1.3-7.7) k/uL Lymphocytes # 3.4 (1.0-4.8) k/uL Monocytes # 0.3 (0-1.0) k/uL Eosinophils # 0.1 (0-0.7) k/uL Basophils # 0.0 (0-0.2) k/uL PT 10.0 (9.0-12.0) sec INR 1.0 (<1.2) APTT 22.1 (22.0-30.0) sec Sodium (137-145) mmol/L Potassium (3.5-5.1) mmol/L Chloride (98-107) mmol/L Carbon Dioxide (22-30) mmol/L Anion Gap mmol/L BUN (7-17) mg/dL Creatinine (0.52-1.04) mg/dL Est GFR (CKD-EPI)AfAm (>60 ml/min/1.73 sqM) Est GFR (CKD-EPI)NonAf (>60 ml/min/1.73 sqM) Glucose (74-99) mg/dL Plasma Lactic Acid Nadir (0.7-2.0) mmol/L Calcium (8.4-10.2) mg/dL Magnesium (1.6-2.3) mg/dL Total Bilirubin (0.2-1.3) mg/dL AST (14-36) U/L ALT (9-52) U/L Alkaline Phosphatase (38-126) U/L Total Creatine Kinase (30-135) U/L CK-MB (CK-2) (0.0-2.4) ng/mL CK-MB (CK-2) Rel Index Troponin I (0.000-0.034) ng/mL Total Protein (6.3-8.2) g/dL Albumin (3.5-5.0) g/dL Urine Color Light Yellow Urine Appearance Clear (Clear) Urine pH 6.0 (5.0-8.0) Ur Specific Hunter 1.006 (1.001-1.035) Urine Protein Trace H (Negative) Urine Glucose (UA) 4+ H (Negative) Urine Ketones Negative (Negative) Urine Blood Trace H (Negative) Urine Nitrite Negative (Negative) Urine Bilirubin Negative (Negative) Urine Urobilinogen <2.0 (<2.0) mg/dL Ur Leukocyte Esterase Negative (Negative) Urine RBC 2 (0-5) /hpf Urine WBC <1 (0-5) /hpf Ur Squamous Epith Cells 1 (0-4) /hpf 12/13/17 17:45 EKG shows normal sinus rhythm normal EKG noted. Ventricular rate of 87 bpm. Pulse 148 ms. QRS duration 82 ms. QT QTc is 362/435 ms. (Angie Quinonez) Disposition <Angie Quinonez - Last Filed: 12/13/17 17:52> Is patient prescribed a controlled substance at d/c from ED?: No <Jese Brush - Last Filed: 12/13/17 19:46> Clinical Impression: Dehydration, Gastroenteritis, Hyperglycemia Disposition: HOME SELF-CARE Condition: Good Instructions: Gastroenteritis (ED), Dehydration (ED) Prescriptions: Ondansetron [Zofran ODT] 4 mg PO Q8HR #10 tab Referrals: Alexx Caldera MD [Primary Care Provider] - 1-2 days
[2017-12-13 17:10] LABS: Basophils % (A) 1 %; Eosinophils # (A) 0.1 k/uL (0-0.7); Eosinophils % (A) 2 %; HCT 47.1 % (34.0-46.0); HGB 14.7 gm/dL (11.4-16.0); Lymphocytes # (A) 3.4 k/uL (1.0-4.8); Lymphocytes % (A) 40 %; MCH 25.8 pg (25.0-35.0); MCHC 31.3 g/dL (31.0-37.0); MCV 82.3 fL (80.0-100.0); Mean Platelet Volume 6.8; Monocytes # (A) 0.3 k/uL (0-1.0); Monocytes % (A) 4 %; Neutrophils # (A) 4.4 k/uL (1.3-7.7); Neutrophils % (A) 52 %; Platelet Count 377 k/uL (150-450); RBC 5.72 m/uL (3.80-5.40); RDW 13.4 % (11.5-15.5); WBC 8.4 k/uL (3.8-10.6)
[2017-12-13 17:11] LABS: Appearance,Urine Clear (Clear); Bilirubin,Urine Negative (Negative); Blood,Urine Trace (Negative); Color,Urine Light Yellow; Glucose,Urine (UA) 4+ (Negative); Ketones,Urine Negative (Negative); Leukocyte Esterase,Urine Negative (Negative); Nitrite,Urine Negative (Negative); Protein,Urine Trace (Negative); RBC,Urine 2 /hpf (0-5); Specific Gravity,Urine 1.006 (1.001-1.035); Squamous Epithelial Cell,Urine 1 /hpf (0-4); Urobilinogen,Urine <2.0 mg/dL (<2.0); WBC,Urine <1 /hpf (0-5)
[2017-12-13] MEDS ORDERED: SODIUM CHLORIDE 0.9% 1,000 ML IV SCH (17:15)
[2017-12-13 17:18] LABS: Partial Thromboplastin Time 22.1 sec (22.0-30.0)
[2017-12-13 17:20] LABS: ALT 29 U/L (9-52); AST 21 U/L (14-36); Albumin 4.4 g/dL (3.5-5.0); Alkaline Phosphatase 90 U/L (38-126); Anion Gap 13 mmol/L; Blood Urea Nitrogen 11 mg/dL (7-17); Calcium 10.1 mg/dL (8.4-10.2); Carbon Dioxide 21 mmol/L (22-30); Chloride 103 mmol/L (98-107); Glucose 371 mg/dL (74-99); Magnesium 1.8 mg/dL (1.6-2.3); Potassium 4.2 mmol/L (3.5-5.1); Sodium 137 mmol/L (137-145); Total Bilirubin 0.6 mg/dL (0.2-1.3); Total Protein 7.7 g/dL (6.3-8.2)
[2017-12-13] MEDS ORDERED: INSULIN REGULAR 100 UNIT/ML VIAL IV ONE (17:22)
[2017-12-13] MEDS ORDERED: ACETAMINOPHEN TAB 500 MG TAB PO STA (17:23)
[2017-12-13 17:26] LABS: Creatine Kinase 43 U/L (30-135)
[2017-12-13 17:37] LABS: Creatine Kinase MB <0.2 ng/mL (0.0-2.4); Troponin I <0.012 ng/mL (0.000-0.034)
[2017-12-13] MEDS ORDERED: SODIUM CHLORIDE 0.9% 1,000 ML IV ONE (17:42)
--- NOTE | 2017-12-13 18:33 | XR ---
EXAMINATION TYPE: XR chest 2V DATE OF EXAM: 12/13/2017 COMPARISON: 11/06/2016 HISTORY: Weakness TECHNIQUE: Frontal and lateral views of the chest are obtained. FINDINGS: Heart and mediastinum are normal. Lungs are clear. Diaphragm is normal. There are chest le ads. Bony thorax appears normal. IMPRESSION: Normal chest. There is clearing of the nodular left upper lobe infiltrate compared to ol d exam.
[2017-12-13 18:53] VITALS: PULSE 86; RESP 16
[2017-12-13 19:58] VITALS: BP 153/85; TEMP 98.5
== END 2017-12-13 20:01 | disposition home or self-care (01) ==
LOC: EC 15:17
DX: E11.65 Type 2 diabetes mellitus with hyperglycemia (principal); K52.9 Noninfective gastroenteritis and colitis, unspecified; E86.0 Dehydration; R74.0 Nonspecific elevation of levels of transaminase and lactic acid dehydrogenase [LDH]; K21.9 Gastro-esophageal reflux disease without esophagitis; I10 Essential (primary) hypertension; E78.5 Hyperlipidemia, unspecified; E78.00 Pure hypercholesterolemia, unspecified; Z79.84 Long term (current) use of oral hypoglycemic drugs; Z79.899 Other long term (current) drug therapy
CPT/HCPCS: 99285; 96374; 96361 ×2; 36415; 93005; 80053; 82550; 82553; 83605; 83735; 84484; 85025; 85610; 85730; 81001; 71046; J2405

== ENCOUNTER → 2018-04-17 | Outpatient (CLI) | payer OTHER ==
--- NOTE | 2018-04-17 09:52 | US ---
EXAMINATION TYPE: US abdomen complete DATE OF EXAM: 04/17/2018 COMPARISON: CT 04/30/2017. CLINICAL HISTORY: 52-year-old female R10.84 Abd Pain, R94.5 Elevated LFT. TECHNIQUE: Multiple sonographic images of the abdomen are obtained. FINDINGS: [employer] notes: Difficult & limited exam due to overlying bowel gas EXAM MEASUREMENTS: Liver Length: 15.1 cm Gallbladder Wall: 0.2 cm CBD: 0.4 cm Spleen: 6.9 cm Right Kidney: 11.1 x 5.0 x 5.3 cm Left Kidney: 10.9 x 4.9 x 5.1 cm Pancreas: Tail obscured by overlying bowel gas. Visualized portions appear heterogeneous Liver: Slightly echogenic in appearance. No focal lesion seen. Gallbladder: wnl Evidence for sonographic Low's sign: No CBD: Limited visualization due to overlying bowel gas, visualized portions wnl Spleen: wnl Right Kidney: No hydronephrosis or masses seen Left Kidney: Two hyperechoic areas visualized, largest measuring 1.1 x 1.2 x 1.3 cm in the lower kathryn e . The smaller measures 6 mm upper pole. Correlation is made to the CT from 04/30/2017. It showed a n 8 mm indeterminate lesion in the left lower pole. Upper IVC: wnl Abd Aorta: Atherosclerotic changes visualized IMPRESSION: 1. There are 2 indeterminate echogenic lesions within the left kidney measuring 1.3 cm in the lower p ole (versus 8 mm on 04/30/2017) and 6 mm in the upper pole. As a minority of renal cell carcinomas can present as echogenic lesions, consider kidney MRI for further tissue characterization. 2. No hydronephrosis. 3. There may be mild fatty infiltration of the liver.
== END | disposition home or self-care (01) ==
LOC: RADUSWWP 07:23
PROVIDERS: ATTEND Internal Medicine
DX: R10.84 Generalized abdominal pain (principal); R94.5 Abnormal results of liver function studies
CPT/HCPCS: 76700

== ENCOUNTER 2018-04-26 16:26 | Emergency (ER) | payer OTHER ==
[2018-04-26] MEDS ORDERED: predniSONE 50 MG TAB PO STA (17:18)
[2018-04-26] MEDS ORDERED: SODIUM CHLORIDE 0.9% 1,000 ML IV STA (17:18)
[2018-04-26] MEDS ORDERED: KETOROLAC 30 MG/ML 1 ML VIAL IVP STA (17:18)
--- NOTE | 2018-04-26 18:20 | ED ---
Abdominal Pain HPI - General Chief Complaint: Abdominal Pain Stated Complaint: Abd Pain Time Seen by Provider: 04/26/18 17:05 Source: patient Mode of arrival: ambulatory Limitations: no limitations - History of Present Illness Initial Comments: 52-year-old female patient presents to the emergency department today for evaluation of rash to her face and head and abdominal pain. Patient has been experiencing a rash to her face on for the last few weeks. States she did creep from her primary care physician and doesn't seem to be helping. Patient is also been having pain to the lower abdomen for the last 4 days. States that she is also having some left flank pain with this. She denies any hematuria, dysuria, urinary frequency, urinary urgency. Denies any nausea, vomiting, or difficulties with bowel movements. Denies any fevers or chills with this. Denies history of abdominal surgery. Denies any abnormal vaginal bleeding or discharge. Patient denies any recent rash, shortness breath, chest pain, numbness, tingling, dizziness, weakness, headache, visual changes, or any other complaints. - Related Data Home Medications Medication Instructions Recorded Confirmed Glimepiride [Amaryl] 2 mg PO BID 11/06/16 04/26/18 Gabapentin [Neurontin] 100 - 200 mg PO HS 04/26/18 04/26/18 metFORMIN HCL [Glucophage] 500 mg PO BID 04/26/18 04/26/18 Previous Rx's Medication Instructions Recorded predniSONE 50 mg PO DAILY #5 tablet 04/26/18 Allergies Allergy/AdvReac Type Severity Reaction Status Date / Time No Known Allergies Allergy Verified 04/26/18 17:04 Review of Systems ROS Statement: Those systems with pertinent positive or pertinent negative responses have been documented in the HPI. ROS Other: All systems not noted in ROS Statement are negative. Past Medical History Past Medical History: Diabetes Mellitus, GERD/Reflux, Hyperlipidemia, Hypertension History of Any Multi-Drug Resistant Organisms: None Reported Past Surgical History: No Surgical Hx Reported Additional Past Surgical History / Comment(s): removal of breast, unk if CA Past Psychological History: No Psychological Hx Reported Smoking Status: Never smoker Past Alcohol Use History: None Reported Past Drug Use History: None Reported General Exam Limitations: language barrier (Patient requests to use family member as first cook) General appearance: alert, in no apparent distress, other (This is a well- developed, well-nourished adult female patient in no acute distress. Vital signs upon presentation are temperature 98.8F, pulse 91, respirations 16, blood pressure 149/86, pulse ox 99% on room air.) Eye exam: Present: normal appearance, PERRL, EOMI. Absent: scleral icterus, conjunctival injection, periorbital swelling ENT exam: Present: mucous membranes moist. Absent: normal oropharynx ( Pharyngeal erythema) Respiratory exam: Present: normal lung sounds bilaterally. Absent: respiratory distress, wheezes, rales, rhonchi, stridor Cardiovascular Exam: Present: regular rate, normal rhythm, normal heart sounds. Absent: systolic murmur, diastolic murmur, rubs, gallop, clicks GI/Abdominal exam: Present: soft, tenderness (Lower abdominal tenderness), normal bowel sounds. Absent: distended, guarding, rebound, rigid Back exam: Present: normal inspection, CVA tenderness (R). Absent: CVA tenderness (L) Neurological exam: Present: alert, oriented X3, CN II-XII intact Psychiatric exam: Present: normal affect, normal mood Skin exam: Present: warm, dry, intact, normal color. Absent: rash Course Vital Signs 04/26/18 04/26/18 17:02 20:43 Temperature 98.8 F 97.8 F Pulse Rate 91 90 Respiratory 16 18 Rate Blood Pressure 149/86 134/79 O2 Sat by Pulse 99 97 Oximetry Medical Decision Making - Medical Decision Making 52-year-old female patient presented to the emergency department today for evaluation of rash to her face, sore throat, and lower abdominal pain. Patient has been worked up multiple times for abdominal pain in the past. Physical examination did reveal mild lower abdominal tenderness. No guarding or rebound. Labs reviewed and were unremarkable. She is afebrile. Urinalysis is negative for any evidence of infection. Patient will be given steroid for the rash to her face. She is instructed take anti-inflammatory medications to aid with sore throat. She is instructed to follow-up with her primary care physician for recheck. I did review computed tomography scan from April of this year, there did appear to be lesions to the kidney and thickening of the bladder. Family and patient state that she has not followed up for this finding. They have been referred to urology for further evaluation. Return parameters were discussed in detail. They verbalize understanding and agree with this plan. - Lab Data Result diagrams: 04/26/18 18:07 04/26/18 18:07 Lab Results 04/26/18 04/26/18 04/26/18 Range/Units 18:07 18:07 18:12 WBC 7.7 (3.8-10.6) k/uL RBC 5.37 (3.80-5.40) m/uL Hgb 13.6 (11.4-16.0) gm/dL Hct 41.9 (34.0-46.0) % MCV 77.9 L (80.0-100.0) fL MCH 25.4 (25.0-35.0) pg MCHC 32.6 (31.0-37.0) g/dL RDW 13.4 (11.5-15.5) % Plt Count 395 (150-450) k/uL Neutrophils % 51 % Lymphocytes % 40 % Monocytes % 5 % Eosinophils % 2 % Basophils % 1 % Neutrophils # 3.9 (1.3-7.7) k/uL Lymphocytes # 3.0 (1.0-4.8) k/uL Monocytes # 0.4 (0-1.0) k/uL Eosinophils # 0.2 (0-0.7) k/uL Basophils # 0.1 (0-0.2) k/uL Sodium 141 (137-145) mmol/L Potassium 4.5 (3.5-5.1) mmol/L Chloride 106 (98-107) mmol/L Carbon Dioxide 25 (22-30) mmol/L Anion Gap 10 mmol/L BUN 9 (7-17) mg/dL Creatinine 0.40 L (0.52-1.04) mg/dL Est GFR (CKD-EPI)AfAm >90 (>60 ml/min/1.73 sqM) Est GFR (CKD-EPI)NonAf >90 (>60 ml/min/1.73 sqM) Glucose 170 H (74-99) mg/dL Calcium 10.0 (8.4-10.2) mg/dL Total Bilirubin 0.5 (0.2-1.3) mg/dL AST 23 (14-36) U/L ALT 33 (9-52) U/L Alkaline Phosphatase 81 (38-126) U/L Total Protein 7.6 (6.3-8.2) g/dL Albumin 4.3 (3.5-5.0) g/dL Amylase 62 (30-110) U/L Lipase 146 (23-300) U/L Urine Color Urine Appearance (Clear) Urine pH (5.0-8.0) Ur Specific Girard (1.001-1.035) Urine Protein (Negative) Urine Glucose (UA) (Negative) Urine Ketones (Negative) Urine Blood (Negative) Urine Nitrite (Negative) Urine Bilirubin (Negative) Urine Urobilinogen (<2.0) mg/dL Ur Leukocyte Esterase (Negative) Urine HCG, Qual Not Detected (Not Detectd) 04/26/18 Range/Units 18:12 WBC (3.8-10.6) k/uL RBC (3.80-5.40) m/uL Hgb (11.4-16.0) gm/dL Hct (34.0-46.0) % MCV (80.0-100.0) fL MCH (25.0-35.0) pg MCHC (31.0-37.0) g/dL RDW (11.5-15.5) % Plt Count (150-450) k/uL Neutrophils % % Lymphocytes % % Monocytes % % Eosinophils % % Basophils % % Neutrophils # (1.3-7.7) k/uL Lymphocytes # (1.0-4.8) k/uL Monocytes # (0-1.0) k/uL Eosinophils # (0-0.7) k/uL Basophils # (0-0.2) k/uL Sodium (137-145) mmol/L Potassium (3.5-5.1) mmol/L Chloride (98-107) mmol/L Carbon Dioxide (22-30) mmol/L Anion Gap mmol/L BUN (7-17) mg/dL Creatinine (0.52-1.04) mg/dL Est GFR (CKD-EPI)AfAm (>60 ml/min/1.73 sqM) Est GFR (CKD-EPI)NonAf (>60 ml/min/1.73 sqM) Glucose (74-99) mg/dL Calcium (8.4-10.2) mg/dL Total Bilirubin (0.2-1.3) mg/dL AST (14-36) U/L ALT (9-52) U/L Alkaline Phosphatase (38-126) U/L Total Protein (6.3-8.2) g/dL Albumin (3.5-5.0) g/dL Amylase (30-110) U/L Lipase (23-300) U/L Urine Color Colorless Urine Appearance Clear (Clear) Urine pH 5.5 (5.0-8.0) Ur Specific Girard 1.001 (1.001-1.035) Urine Protein Negative (Negative) Urine Glucose (UA) 1+ H (Negative) Urine Ketones Negative (Negative) Urine Blood Trace H (Negative) Urine Nitrite Negative (Negative) Urine Bilirubin Negative (Negative) Urine Urobilinogen <2.0 (<2.0) mg/dL Ur Leukocyte Esterase Negative (Negative) Urine HCG, Qual (Not Detectd) - Radiology Data Radiology results: report reviewed, image reviewed Two-view upright of the abdomen are obtained. Report was reviewed in its entirety. Impression by Dr. Panchal shows nonacute abdomen with no change. Disposition Clinical Impression: Facial rash, Abdominal pain Disposition: HOME SELF-CARE Condition: Good Instructions (If sedation given, give patient instructions): Acute Rash (ED), Abdominal Pain (ED) Additional Instructions: Complete steroid prescription in full. Follow-up with your primary care physician for further evaluation. Return to the emergency department immediately for any new, worsening, or concerning symptoms. Prescriptions: predniSONE 50 mg PO DAILY #5 tablet Is patient prescribed a controlled substance at d/c from ED?: No Referrals: Dontrell Pedroza MD [Primary Care Provider] - 1-2 days Sabas Clifford MD [STAFF PHYSICIAN] - 1-2 days Time of Disposition: 19:27
[2018-04-26 18:29] LABS: Basophils # (A) 0.1 k/uL (0-0.2); Basophils % (A) 1 %; Eosinophils # (A) 0.2 k/uL (0-0.7); Eosinophils % (A) 2 %; HCT 41.9 % (34.0-46.0); HGB 13.6 gm/dL (11.4-16.0); Lymphocytes % (A) 40 %; MCH 25.4 pg (25.0-35.0); MCHC 32.6 g/dL (31.0-37.0); MCV 77.9 fL (80.0-100.0); Mean Platelet Volume 6.3; Monocytes # (A) 0.4 k/uL (0-1.0); Monocytes % (A) 5 %; Neutrophils # (A) 3.9 k/uL (1.3-7.7); Neutrophils % (A) 51 %; Platelet Count 395 k/uL (150-450); RBC 5.37 m/uL (3.80-5.40); RDW 13.4 % (11.5-15.5); WBC 7.7 k/uL (3.8-10.6)
[2018-04-26 18:42] LABS: ALT 33 U/L (9-52); AST 23 U/L (14-36); Albumin 4.3 g/dL (3.5-5.0); Alkaline Phosphatase 81 U/L (38-126); Amylase 62 U/L (30-110); Anion Gap 10 mmol/L; Blood Urea Nitrogen 9 mg/dL (7-17); Carbon Dioxide 25 mmol/L (22-30); Chloride 106 mmol/L (98-107); Glucose 170 mg/dL (74-99); Lipase 146 U/L (23-300); Sodium 141 mmol/L (137-145); Total Bilirubin 0.5 mg/dL (0.2-1.3); Total Protein 7.6 g/dL (6.3-8.2)
[2018-04-26 18:43] LABS: Potassium 4.5 mmol/L (3.5-5.1)
[2018-04-26 18:43] LABS: Appearance,Urine Clear (Clear); Bilirubin,Urine Negative (Negative); Blood,Urine Trace (Negative); Color,Urine Colorless; Glucose,Urine (UA) 1+ (Negative); Ketones,Urine Negative (Negative); Leukocyte Esterase,Urine Negative (Negative); Nitrite,Urine Negative (Negative); PH, Urine 5.5 (5.0-8.0); Protein,Urine Negative (Negative); Specific Gravity,Urine 1.001 (1.001-1.035); Urobilinogen,Urine <2.0 mg/dL (<2.0)
--- NOTE | 2018-04-26 19:05 | XR ---
EXAMINATION TYPE: XR KUB DATE OF EXAM: 04/26/2018 COMPARISON: 04/30/2017 HISTORY: Pain TECHNIQUE: 2 views upright FINDINGS: There is no sign of intestinal obstruction or pneumoperitoneum. Fecal pattern is normal. Th ere are no pathologic calcifications. There is no sign of a mass. Lung bases are clear. IMPRESSION: Nonacute abdomen. No change.
[2018-04-26 20:44] VITALS: BP 134/79; PULSE 90; RESP 18; TEMP 97.8
== END 2018-04-26 20:44 | disposition home or self-care (01) ==
LOC: EC 16:26
DX: R10.30 Lower abdominal pain, unspecified (principal); R21 Rash and other nonspecific skin eruption; J02.9 Acute pharyngitis, unspecified; E11.9 Type 2 diabetes mellitus without complications; Z79.84 Long term (current) use of oral hypoglycemic drugs; Z79.899 Other long term (current) drug therapy; Z90.10 Acquired absence of unspecified breast and nipple
CPT/HCPCS: 36415; 80053; 82150; 83690; 85025; 81001; 81025; 87086; 74018; 99284; 96374; 96361 ×2; J1885; J7512

== ENCOUNTER → 2018-05-19 | Outpatient (CLI) | payer OTHER ==
[2018-05-19 16:42] LABS: Blood Urea Nitrogen 10 mg/dL (7-17)
--- NOTE | 2018-05-20 17:02 | CT ---
EXAMINATION TYPE: CT urogram wo/w con DATE OF EXAM: 05/19/2018 HISTORY: Hematuria, abdominal pain CT DLP: 2144mGycm Automated Exposure Control for Dose Reduction was Utilized. CONTRAST: CT scan of the abdomen and pelvis is performed without oral and without and with IV Contrast, patient injected with 100 mL of Isovue 300. Urogram protocol with Three-D reconstructed images created on in dependent workstation and reviewed. COMPARISON: CT abdomen pelvis April 30, 2017. FINDINGS: KUB: Left kidney noted asymmetrically larger versus right kidney but no cortical thinning is present. Noncontrast images show no renal calculi bilaterally. Postcontrast images show symmetric cortical me dullary uptake and excretion. There is a 8 millimeter hypodense mass anteriorly lower pole level left kidney too small to further characterize seen best image 35 series 9 and 14. Right kidney shows no s uspicious solid or cystic mass. No hydronephrosis is present bilaterally. There is satisfactory opaci fication of bilateral ureters and bladder. No calculus is evident. There is no suspicious wall thicke trish or bladder wall mass noted. Occasional scattered right-sided pelvic phlebolith noted. LUNG BASES: No significant abnormality is appreciated. LIVER/GB: No significant abnormality is appreciated. PANCREAS: No significant abnormality is seen. SPLEEN: No significant abnormality is seen. ADRENALS: No significant abnormality is seen. BOWEL: Appendix within normal limits ascending from cecum. UTERUS/ADNEXA: Slightly retroverted uterus is seen. LYMPH NODES: No greater than 1cm abdominal or pelvic lymph nodes are appreciated. OSSEOUS STRUCTURES: Levoconvex scoliotic curvature centered mid lumbar spine is present. OTHER: No significant additional abnormality is seen. IMPRESSION: No renal stones or suspicious new finding seen to account for patient's symptoms of hemat uria and abdominal pain. A nonspecific 8 mm lower pole low dense lesion anteriorly left kidney is too small to further characterize, unchanged in size and appearance from prior study favored benign in e tiology.
== END | disposition home or self-care (01) ==
LOC: RADCTMAIN 16:05
PROVIDERS: ATTEND Urology
DX: N28.89 Other specified disorders of kidney and ureter (principal); R31.21 Asymptomatic microscopic hematuria
CPT/HCPCS: 82565; 84520; 74178; 36415; 74400; Q9967

== ENCOUNTER 2018-06-01 15:17 | Emergency (ER) | payer OTHER ==
[2018-06-01 15:24] VITALS: RESP 18
--- NOTE | 2018-06-01 16:18 | ED ---
General Adult HPI - General Chief complaint: Abdominal Pain Stated complaint: abd pain, hematuria Time Seen by Provider: 06/01/18 15:59 Source: patient, family, RN notes reviewed Mode of arrival: ambulatory Limitations: language barrier - History of Present Illness Initial comments: 53-year-old female with a past medical history of diabetes, GERD, hyper lipidemia, hypertension presents to the emergency department for a chief complaint of abdominal pain. Patient has had lower abdominal pain associated with dysuria and hematuria for the past few days. Patient also complaining of left flank pain since that time. states she was saying this pain was a 10 out of 10. is translating. No fevers or chills.Patient has no other complaints at this time including shortness of breath, chest pain, nausea or vomiting, headache, or visual changes. - Related Data Home Medications Medication Instructions Recorded Confirmed Glimepiride [Amaryl] 2 mg PO BID 11/06/16 06/01/18 metFORMIN HCL [Glucophage] 500 mg PO BID 04/26/18 06/01/18 Loratadine [Claritin] 10 mg PO HS 06/01/18 06/01/18 Meloxicam 15 mg PO DAILY 06/01/18 06/01/18 Multivitamins, Thera [Multivitamin 1 tab PO DAILY 06/01/18 06/01/18 (formulary)] Omeprazole 20 mg PO DAILY 06/01/18 06/01/18 amLODIPine [Norvasc] 10 mg PO DAILY 06/01/18 06/01/18 Previous Rx's Medication Instructions Recorded Cephalexin [Keflex] 500 mg PO Q6HR 14 Days cap 06/01/18 Allergies Allergy/AdvReac Type Severity Reaction Status Date / Time No Known Allergies Allergy Verified 06/01/18 16:21 Review of Systems ROS Statement: Those systems with pertinent positive or pertinent negative responses have been documented in the HPI. ROS Other: All systems not noted in ROS Statement are negative. Past Medical History Past Medical History: Diabetes Mellitus, GERD/Reflux, Hyperlipidemia, Hypertension History of Any Multi-Drug Resistant Organisms: None Reported Past Surgical History: No Surgical Hx Reported Additional Past Surgical History / Comment(s): removal of breast, unk if CA Past Psychological History: No Psychological Hx Reported Smoking Status: Never smoker Past Alcohol Use History: None Reported Past Drug Use History: None Reported General Exam Limitations: language barrier General appearance: alert, in no apparent distress Head exam: Present: atraumatic, normocephalic, normal inspection Eye exam: Present: normal appearance, PERRL, EOMI. Absent: scleral icterus, conjunctival injection, periorbital swelling ENT exam: Present: normal exam, mucous membranes moist Neck exam: Present: normal inspection, full ROM. Absent: tenderness, meningismus, lymphadenopathy Respiratory exam: Present: normal lung sounds bilaterally. Absent: respiratory distress, wheezes, rales, rhonchi, stridor Cardiovascular Exam: Present: regular rate, normal rhythm, normal heart sounds. Absent: bradycardia, tachycardia, irregular rhythm GI/Abdominal exam: Present: soft, tenderness (tenderness to the suprapubic area), normal bowel sounds. Absent: distended, guarding, rebound, rigid Back exam: Present: CVA tenderness (L) Neurological exam: Present: alert, oriented X3, CN II-XII intact Psychiatric exam: Present: normal affect, normal mood Course Vital Signs 06/01/18 15:22 Temperature 97.8 F Pulse Rate 90 Respiratory 18 Rate Blood Pressure 133/87 O2 Sat by Pulse 98 Oximetry Medical Decision Making - Medical Decision Making 53-year-old female presents for dysuria and suprapubic pain. This is been ongoing for the past few days. Patient does have tenderness noted to the suprapubic area as well as left CVA tenderness. Patient is afebrile with a normal pulse rate and normotensive. Well-appearing on exam. CBC does show all white count of 15.2. CMP unremarkable. Glucose mildly elevated at 173, patient is a type II diabetic. Urine does show evidence of infection with greater than 182 white blood cells and red blood cells. Patient was given 2 L of fluids as well as 2 g Rocephin. Due to the unilateral flank pain with Alla than [address] was ordered to rule out septic stone which was not evident on CAT scan. Patient prefers to go home. Patient will be discharged home with Keflex 4 times a day for 14 days. Discussed returning here if she has any worsening symptoms. - Lab Data Result diagrams: 06/01/18 16:10 06/01/18 16:10 Lab Results 06/01/18 06/01/18 06/01/18 Range/Units 16:10 16:10 16:15 WBC 15.2 H (3.8-10.6) k/uL RBC 5.60 H (3.80-5.40) m/uL Hgb 13.5 (11.4-16.0) gm/dL Hct 42.4 (34.0-46.0) % MCV 75.6 L (80.0-100.0) fL MCH 24.0 L (25.0-35.0) pg MCHC 31.8 (31.0-37.0) g/dL RDW 14.2 (11.5-15.5) % Plt Count 443 (150-450) k/uL Neutrophils % 75 % Lymphocytes % 17 % Monocytes % 4 % Eosinophils % 3 % Basophils % 0 % Neutrophils # 11.4 H (1.3-7.7) k/uL Lymphocytes # 2.5 (1.0-4.8) k/uL Monocytes # 0.6 (0-1.0) k/uL Eosinophils # 0.4 (0-0.7) k/uL Basophils # 0.0 (0-0.2) k/uL Microcytosis Slight Sodium 140 (137-145) mmol/L Potassium 4.4 (3.5-5.1) mmol/L Chloride 104 (98-107) mmol/L Carbon Dioxide 27 (22-30) mmol/L Anion Gap 9 mmol/L BUN 9 (7-17) mg/dL Creatinine 0.35 L (0.52-1.04) mg/dL Est GFR (CKD-EPI)AfAm >90 (>60 ml/min/1.73 sqM) Est GFR (CKD-EPI)NonAf >90 (>60 ml/min/1.73 sqM) Glucose 173 H (74-99) mg/dL Calcium 10.0 (8.4-10.2) mg/dL Total Bilirubin 0.4 (0.2-1.3) mg/dL AST 33 (14-36) U/L ALT 42 (9-52) U/L Alkaline Phosphatase 92 (38-126) U/L Total Protein 7.2 (6.3-8.2) g/dL Albumin 4.3 (3.5-5.0) g/dL Amylase 59 (30-110) U/L Lipase 133 (23-300) U/L Urine Color Yellow Urine Appearance Turbid H (Clear) Urine pH 6.0 (5.0-8.0) Ur Specific [place] 1.020 (1.001-1.035) Urine Protein 2+ H (Negative) Urine Glucose (UA) Negative (Negative) Urine Ketones Negative (Negative) Urine Blood Large H (Negative) Urine Nitrite Negative (Negative) Urine Bilirubin Negative (Negative) Urine Urobilinogen <2.0 (<2.0) mg/dL Ur Leukocyte Esterase Large H (Negative) Urine RBC >182 H (0-5) /hpf Urine WBC >182 H (0-5) /hpf Urine Bacteria Many H (None) /hpf Urine Mucus Few H (None) /hpf Disposition Clinical Impression: Pyelonephritis Disposition: HOME SELF-CARE Condition: Good Instructions (If sedation given, give patient instructions): Kidney Infection (ED), Urinary Tract Infection in Women (ED) Additional Instructions: Please drink plenty of fluids. Take Keflex as directed. You may start this tomorrow. Follow up with primary care in 1-2 days. Return here if you are developing worsening symptoms. Prescriptions: Cephalexin [Keflex] 500 mg PO Q6HR 14 Days cap Is patient prescribed a controlled substance at d/c from ED?: No Referrals: Dontrell Pedroza MD [Primary Care Provider] - 1-2 days Time of Disposition: 18:34
[2018-06-01 16:29] LABS: Basophils % (A) 0 %; Eosinophils # (A) 0.4 k/uL (0-0.7); Eosinophils % (A) 3 %; HCT 42.4 % (34.0-46.0); HGB 13.5 gm/dL (11.4-16.0); Lymphocytes # (A) 2.5 k/uL (1.0-4.8); Lymphocytes % (A) 17 %; MCHC 31.8 g/dL (31.0-37.0); MCV 75.6 fL (80.0-100.0); Mean Platelet Volume 7.9; Microcytosis Slight; Monocytes # (A) 0.6 k/uL (0-1.0); Monocytes % (A) 4 %; Neutrophils # (A) 11.4 k/uL (1.3-7.7); Neutrophils % (A) 75 %; Platelet Count 443 k/uL (150-450); RDW 14.2 % (11.5-15.5); WBC 15.2 k/uL (3.8-10.6)
[2018-06-01 16:39] LABS: ALT 42 U/L (9-52); AST 33 U/L (14-36); Albumin 4.3 g/dL (3.5-5.0); Alkaline Phosphatase 92 U/L (38-126); Amylase 59 U/L (30-110); Anion Gap 9 mmol/L; Blood Urea Nitrogen 9 mg/dL (7-17); Carbon Dioxide 27 mmol/L (22-30); Chloride 104 mmol/L (98-107); Glucose 173 mg/dL (74-99); Lipase 133 U/L (23-300); Potassium 4.4 mmol/L (3.5-5.1); Sodium 140 mmol/L (137-145); Total Bilirubin 0.4 mg/dL (0.2-1.3); Total Protein 7.2 g/dL (6.3-8.2)
--- NOTE | 2018-06-01 16:55 | CT ---
EXAMINATION TYPE: CT abdomen pelvis wo con DATE OF EXAM: 06/01/2018 COMPARISON: 05/19/2018 CT wo/w contrast HISTORY: Generalized pain with hematuria. CT DLP: 404.2 mGycm. Automated exposure control for dose reduction was used. TECHNIQUE: Helical acquisition of images was performed from the lung bases through the pelvis. FINDINGS: Within limitations of noncontrast CT the following observations are made: LUNG BASES: No significant abnormality is appreciated. LIVER/GB: No significant abnormality is appreciated. PANCREAS: No significant abnormality is seen. SPLEEN: No significant abnormality is seen. ADRENALS: No significant abnormality is seen. KIDNEYS: No significant abnormality is seen. FREE AIR: No free air is visualized RETROPERITONEAL ADENOPATHY: None visualized REPRODUCTIVE ORGANS: No significant abnormality is seen URINARY BLADDER: No significant abnormality is seen. PELVIC ADENOPATHY: None visualized. OSSEOUS STRUCTURES: No significant abnormality is seen. BOWEL: No significant abnormality is seen. Appendix has normal appearance; it is retrocecal in posit ion, rising to a position between the upper ascending colon and right kidney. OTHER: Nonaneurysmal atherosclerotic intimal calcification are seen throughout the visualized arteria l anatomy. IMPRESSION: NO ACUTE PROCESS.
[2018-06-01] MEDS ORDERED: SODIUM CHLORIDE 0.9% 1,000 ML IV STA ×2 (17:04→17:29)
[2018-06-01 17:20] LABS: Appearance,Urine Turbid (Clear); Bacteria,Urine Many /hpf; Bilirubin,Urine Negative (Negative); Blood,Urine Large (Negative); Color,Urine Yellow; Glucose,Urine (UA) Negative (Negative); Ketones,Urine Negative (Negative); Leukocyte Esterase,Urine Large (Negative); Mucus,Urine Few /hpf; Nitrite,Urine Negative (Negative); Protein,Urine 2+ (Negative); RBC,Urine >182 /hpf (0-5); Urobilinogen,Urine <2.0 mg/dL (<2.0); WBC,Urine >182 /hpf (0-5)
[2018-06-01] MEDS ORDERED: cefTRIAXone IN SWFI 1,000 MG/10 ML SYRINGE IVP STA (17:28)
[2018-06-01 19:20] VITALS: BP 126/79; PULSE 86; TEMP 98
== END 2018-06-01 19:20 | disposition home or self-care (01) ==
LOC: EC 15:17
DX: N12 Tubulo-interstitial nephritis, not specified as acute or chronic (principal); E11.9 Type 2 diabetes mellitus without complications; K21.9 Gastro-esophageal reflux disease without esophagitis; I10 Essential (primary) hypertension; E78.5 Hyperlipidemia, unspecified; Z79.84 Long term (current) use of oral hypoglycemic drugs; Z79.1 Long term (current) use of non-steroidal anti-inflammatories (NSAID); Z79.899 Other long term (current) drug therapy
CPT/HCPCS: 36415; 80053; 82150; 83690; 85025; 81001; 87040; 87086; 74176; 99284; 96374; 96361 ×2; J0696

== ENCOUNTER 2018-08-05 18:18 | Emergency (ER) | payer OTHER ==
[2018-08-05 18:22] VITALS: RESP 16
[2018-08-05] MEDS ORDERED: SODIUM CHLORIDE 0.9% 500 ML 500 ML IV STA (18:37)
[2018-08-05 19:31] LABS: Basophils % (A) 1 %; Eosinophils # (A) 0.2 k/uL (0-0.7); Eosinophils % (A) 3 %; HCT 41.4 % (34.0-46.0); HGB 13.1 gm/dL (11.4-16.0); Lymphocytes # (A) 2.9 k/uL (1.0-4.8); Lymphocytes % (A) 46 %; MCH 24.4 pg (25.0-35.0); MCHC 31.6 g/dL (31.0-37.0); MCV 77.1 fL (80.0-100.0); Mean Platelet Volume 6.2; Monocytes # (A) 0.2 k/uL (0-1.0); Monocytes % (A) 4 %; Neutrophils # (A) 2.8 k/uL (1.3-7.7); Neutrophils % (A) 45 %; Platelet Count 413 k/uL (150-450); RBC 5.36 m/uL (3.80-5.40); RDW 14.2 % (11.5-15.5); WBC 6.3 k/uL (3.8-10.6)
[2018-08-05 19:41] LABS: ALT 35 U/L (9-52); AST 24 U/L (14-36); Albumin 4.6 g/dL (3.5-5.0); Alkaline Phosphatase 91 U/L (38-126); Anion Gap 11 mmol/L; Blood Urea Nitrogen 9 mg/dL (7-17); Calcium 9.9 mg/dL (8.4-10.2); Carbon Dioxide 24 mmol/L (22-30); Chloride 104 mmol/L (98-107); Glucose 161 mg/dL (74-99); Lipase 200 U/L (23-300); Potassium 4.4 mmol/L (3.5-5.1); Sodium 139 mmol/L (137-145); Total Bilirubin 0.3 mg/dL (0.2-1.3); Total Protein 7.8 g/dL (6.3-8.2)
[2018-08-05 19:52] LABS: Appearance,Urine Clear (Clear); Bilirubin,Urine Negative (Negative); Blood,Urine Trace (Negative); Color,Urine Colorless; Glucose,Urine (UA) Negative (Negative); Ketones,Urine Negative (Negative); Leukocyte Esterase,Urine Negative (Negative); Mucus,Urine Rare /hpf; Nitrite,Urine Negative (Negative); PH, Urine 5.5 (5.0-8.0); Protein,Urine Negative (Negative); RBC,Urine <1 /hpf (0-5); Specific Gravity,Urine 1.001 (1.001-1.035); Urobilinogen,Urine <2.0 mg/dL (<2.0)
[2018-08-05] MEDS ORDERED: PANTOPRAZOLE 40 MG/10 ML VIAL IVP STA (20:21)
--- NOTE | 2018-08-05 20:25 | ED ---
General Adult HPI - General Source: patient, family, RN notes reviewed, old records reviewed Mode of arrival: ambulatory Limitations: no limitations <Yonathan Waddell - Last Filed: 08/05/18 21:47> <Yuly Bruno - Last Filed: 08/07/18 02:30> - General Chief complaint: Abdominal Pain Stated complaint: Abd pain Time Seen by Provider: 08/05/18 18:37 - History of Present Illness Initial comments: 53-year-old female patient past history of type 2 diabetes, retention, hyperlipidemia presents ED with abdominal pain and diarrhea for approximately 4 days. Patient reports that the pain is in her epigastric region and describes it as a burning pain. Patient also complains of some suprapubic pain. Patient brandon any nausea vomiting. Pt also complains of mild sore throat. Patient denies any other complaint, denies chest pain shortness of breath. Patient vital signs stable, afebrile. Systemic: Pt denies fatigue, fever/chills, rash. Pt denies weakness, night sweats, weight loss. Neuro: Pt denies headache, visual disturbances, syncope or pre-syncope. HEENT: Pt denies ocular discharge or irritation, otalgia, rhinorrhea, pharyngitis or notable lymphadenopathy. Cardiopulmonary: Pt denies chest pain, SOB, heart palpitations, dyspnea on exertion. Abdominal/GI: Pt denies abdominal pain, n/v/d. : Pt denies dysuria, burning w/ urination, frequency/urgency. Denies new onset urinary or bowel incontinence. MSK: Pt denies myalgia, loss of strength or function in extremities. Neuro: Pt denies new onset weakness, paresthesias. (Yonathan Waddell) - Related Data Home Medications Medication Instructions Recorded Confirmed Glimepiride [Amaryl] 2 mg PO BID 11/06/16 06/01/18 metFORMIN HCL [Glucophage] 500 mg PO BID 04/26/18 06/01/18 Loratadine [Claritin] 10 mg PO HS 06/01/18 06/01/18 Meloxicam 15 mg PO DAILY 06/01/18 06/01/18 Multivitamins, Thera [Multivitamin 1 tab PO DAILY 06/01/18 06/01/18 (formulary)] Omeprazole 20 mg PO DAILY 06/01/18 06/01/18 amLODIPine [Norvasc] 10 mg PO DAILY 06/01/18 06/01/18 Previous Rx's Medication Instructions Recorded Cephalexin [Keflex] 500 mg PO Q6HR 14 Days cap 06/01/18 Pantoprazole Sodium [Protonix] 20 mg PO Q24HR 14 Days #14 08/05/18 tablet. Allergies Allergy/AdvReac Type Severity Reaction Status Date / Time No Known Allergies Allergy Verified 08/05/18 18:23 Review of Systems ROS Other: All systems not noted in ROS Statement are negative. <Yonathan Waddell - Last Filed: 08/05/18 21:47> ROS Other: All systems not noted in ROS Statement are negative. <Yuly Bruno - Last Filed: 08/07/18 02:30> ROS Statement: Those systems with pertinent positive or pertinent negative responses have been documented in the HPI. Past Medical History Past Medical History: Diabetes Mellitus, GERD/Reflux, Hyperlipidemia, Hyperten anne History of Any Multi-Drug Resistant Organisms: None Reported Past Surgical History: No Surgical Hx Reported Additional Past Surgical History / Comment(s): removal of breast, unk if CA Past Psychological History: No Psychological Hx Reported Smoking Status: Never smoker Past Alcohol Use History: None Reported Past Drug Use History: None Reported <Yonathan Waddell - Last Filed: 08/05/18 21:47> General Exam Limitations: no limitations <Yonathan Waddell - Last Filed: 08/05/18 21:47> - General Exam Comments Initial Comments: Constitutional: NAD, AOX3, Pt has pleasant affect. HEENT: NC/AT, trachea midline, neck supple, no lymphadenopathy. Posterior pharynx non erythematous, without exudates. External ears appear normal, without discharge. Mucous membranes moist. Eyes PERRLA, EOM intact. There is no scleral icterus. No pallor noted. Cardiopulmonary: RRR, no murmurs, rubs or gallops, no JVD noted. Lungs CTAB in anterior and posterior erci. No peripheral edema. Abdominal exam: Abdomen soft and non-distended. Abdomen mild tenderness to palpation epigastric region, suprapubic region. No other areas of bowel tenderness, no guarding or rigidity. Bowel sounds active in LLQ. No hepatosplenomegaly. No ecchymosis Neuro: CN II-XII grossly intact. No nuchal rigidity. No raccon eyes, no banda sign, no hemotympanum. No cervical spinal tenderness. MSK: No posterior calf tenderness bilaterally, homans sign negative bilaterally. Posterior tibialis and radial pulse +2 bilaterally. Sensation intact in upper and lower extremities. Full active ROM in upper and lower extremities, 5/5 stregnth. (Yonathan Waddell) Course Vital Signs 08/05/18 08/05/18 08/05/18 18:20 20:50 22:06 Temperature 98.1 F 97.8 F Pulse Rate 91 75 72 Respiratory 16 16 16 Rate Blood Pressure 139/75 148/81 148/81 O2 Sat by Pulse 99 98 97 Oximetry Medical Decision Making - Lab Data Result diagrams: 08/05/18 19:15 08/05/18 19:15 <Yonathan Waddell - Last Filed: 08/05/18 21:47> - Lab Data Result diagrams: 08/05/18 19:15 08/05/18 19:15 <Yuly Bruno - Last Filed: 08/07/18 02:30> - Medical Decision Making 53-year-old female patient past history of type 2 diabetes, retention, hyperlipidemia presents ED with abdominal pain and diarrhea for approximately 4 days. Patient reports that the pain is in her epigastric region and describes it as a burning pain. Patient also complains of some suprapubic pain. Patient brandon any nausea vomiting. Pt also complains of mild sore throat. Patient denies any other complaint, denies chest pain shortness of breath. Patient vital signs stable, afebrile. Physical exam displayed: Abdomen soft and non- distended. Abdomen mild tenderness to palpation epigastric region, suprapubic region. No other areas of bowel tenderness, no guarding or rigidity. O2 investigations revealed nonspecific CBC, CMP. Lipase within normal limits. UA negative. Group A strep negative. CT abd pelvis displayed no acute process. Patient likely has gastritis-like syndrome. Patient will be discharged with Protonix. She will return to ER patient worsens anyway. Patient will be given GI follow-up symptoms persist. Case discussed with Dr. Bruno. (Yonathan Waddell) I was available for consultation in the emergency department. The history and physical exam were done by the midlevel provider. I was consulted for this patient's care. I reviewed the case with the midlevel provider and based on their presentation of the patient, I agree with the assessment, medical decision making and plan of care as documented. Chart was dictated using [employer] dictation software. Attempts were made to correct any dictation errors however some typographical errors may persist. (Yuly Bruno) - Lab Data Lab Results 08/05/18 08/05/18 08/05/18 Range/Units 19:15 19:15 19:38 WBC 6.3 (3.8-10.6) k/uL RBC 5.36 (3.80-5.40) m/uL Hgb 13.1 (11.4-16.0) gm/dL Hct 41.4 (34.0-46.0) % MCV 77.1 L (80.0-100.0) fL MCH 24.4 L (25.0-35.0) pg MCHC 31.6 (31.0-37.0) g/dL RDW 14.2 (11.5-15.5) % Plt Count 413 (150-450) k/uL Neutrophils % 45 % Lymphocytes % 46 % Monocytes % 4 % Eosinophils % 3 % Basophils % 1 % Neutrophils # 2.8 (1.3-7.7) k/uL Lymphocytes # 2.9 (1.0-4.8) k/uL Monocytes # 0.2 (0-1.0) k/uL Eosinophils # 0.2 (0-0.7) k/uL Basophils # 0.0 (0-0.2) k/uL Sodium 139 (137-145) mmol/L Potassium 4.4 (3.5-5.1) mmol/L Chloride 104 (98-107) mmol/L Carbon Dioxide 24 (22-30) mmol/L Anion Gap 11 mmol/L BUN 9 (7-17) mg/dL Creatinine 0.42 L (0.52-1.04) mg/dL Est GFR (CKD-EPI)AfAm >90 (>60 ml/min/1.73 sqM) Est GFR (CKD-EPI)NonAf >90 (>60 ml/min/1.73 sqM) Glucose 161 H (74-99) mg/dL Calcium 9.9 (8.4-10.2) mg/dL Total Bilirubin 0.3 (0.2-1.3) mg/dL AST 24 (14-36) U/L ALT 35 (9-52) U/L Alkaline Phosphatase 91 (38-126) U/L Total Protein 7.8 (6.3-8.2) g/dL Albumin 4.6 (3.5-5.0) g/dL Lipase 200 (23-300) U/L Urine Color Colorless Urine Appearance Clear (Clear) Urine pH 5.5 (5.0-8.0) Ur Specific [place] 1.001 (1.001-1.035) Urine Protein Negative (Negative) Urine Glucose (UA) Negative (Negative) Urine Ketones Negative (Negative) Urine Blood Trace H (Negative) Urine Nitrite Negative (Negative) Urine Bilirubin Negative (Negative) Urine Urobilinogen <2.0 (<2.0) mg/dL Ur Leukocyte Esterase Negative (Negative) Urine RBC <1 (0-5) /hpf Urine Mucus Rare H (None) /hpf Urine HCG, Qual (Not Detectd) Group A Strep Rapid (Negative) 08/05/18 08/05/18 Range/Units 19:38 20:09 WBC (3.8-10.6) k/uL RBC (3.80-5.40) m/uL Hgb (11.4-16.0) gm/dL Hct (34.0-46.0) % MCV (80.0-100.0) fL MCH (25.0-35.0) pg MCHC (31.0-37.0) g/dL RDW (11.5-15.5) % Plt Count (150-450) k/uL Neutrophils % % Lymphocytes % % Monocytes % % Eosinophils % % Basophils % % Neutrophils # (1.3-7.7) k/uL Lymphocytes # (1.0-4.8) k/uL Monocytes # (0-1.0) k/uL Eosinophils # (0-0.7) k/uL Basophils # (0-0.2) k/uL Sodium (137-145) mmol/L Potassium (3.5-5.1) mmol/L Chloride (98-107) mmol/L Carbon Dioxide (22-30) mmol/L Anion Gap mmol/L BUN (7-17) mg/dL Creatinine (0.52-1.04) mg/dL Est GFR (CKD-EPI)AfAm (>60 ml/min/1.73 sqM) Est GFR (CKD-EPI)NonAf (>60 ml/min/1.73 sqM) Glucose (74-99) mg/dL Calcium (8.4-10.2) mg/dL Total Bilirubin (0.2-1.3) mg/dL AST (14-36) U/L ALT (9-52) U/L Alkaline Phosphatase (38-126) U/L Total Protein (6.3-8.2) g/dL Albumin (3.5-5.0) g/dL Lipase (23-300) U/L Urine Color Urine Appearance (Clear) Urine pH (5.0-8.0) Ur Specific [place] (1.001-1.035) Urine Protein (Negative) Urine Glucose (UA) (Negative) Urine Ketones (Negative) Urine Blood (Negative) Urine Nitrite (Negative) Urine Bilirubin (Negative) Urine Urobilinogen (<2.0) mg/dL Ur Leukocyte Esterase (Negative) Urine RBC (0-5) /hpf Urine Mucus (None) /hpf Urine HCG, Qual Not Detected (Not Detectd) Group A Strep Rapid Negative (Negative) Disposition Is patient prescribed a controlled substance at d/c from ED?: No <Yonathan Waddell - Last Filed: 08/05/18 21:47> <Yuly Bruno - Last Filed: 08/07/18 02:30> Clinical Impression: Abdominal pain, Diarrhea Disposition: HOME SELF-CARE Condition: Stable Instructions (If sedation given, give patient instructions): Acute Diarrhea (ED), Abdominal Pain (ED), Nutrition Tips for Relief of Diarrhea (ED) Additional Instructions: Patient to adhere to previously discussed treatment plan and will take medication(s) as directed. Patient to follow up with PCP in 1-2 days. Patient to return to ED if symptoms do not improve. Take medication as directed. Follow-up with primary care provider 1-2 days. Follow with GI consult if symptoms persist. Do not take both omeprazole and protonix. Only take protonix. Prescriptions: Pantoprazole Sodium [Protonix] 20 mg PO Q24HR 14 Days #14 tablet.dr Referrals: Dontrell Pedroza MD [Primary Care Provider] - 1-2 days Deepak Crowley MD [STAFF PHYSICIAN] - 1-2 days
[2018-08-05 20:54] VITALS: BP 148/81; TEMP 97.8
--- NOTE | 2018-08-05 21:15 | CT ---
EXAMINATION TYPE: CT abdomen pelvis w con DATE OF EXAM: 08/05/2018 COMPARISON: 05/19/2018 HISTORY: Generalized abdominal pain and diarrhea x [address] DLP: 558 mGycm Automated exposure control for dose reduction was used. TECHNIQUE: Helical acquisition of images was performed from the lung bases through the pelvis. CONTRAST: Performed without Oral Contrast and with IV Contrast, patient injected with 100 mL of Isovue 300. FINDINGS: Lung bases are clear. There is no pleural effusion. Heart size is normal. There is no pericardial effusion. Liver spleen stomach pancreas gallbladder irene ear normal. Bile ducts are not dilated. There is no adrenal mass. Kidneys show satisfactory contrast opacification. There is no hydronephrosis. There is no retroperito gay adenopathy. Bladder distends smoothly. There is no inguinal hernia. There is no free fluid in th e pelvis. There is stable 1 cm cyst lower pole left kidney. There is no mesenteric edema. Appendix appears normal. There is no sign of bowel obstruction. There i s no free air or ascites. Lumbar spine is intact. Bony pelvis is intact. There is mild thoracolumbar levoscoliosis. IMPRESSION: NEGATIVE CT SCAN OF THE ABDOMEN AND PELVIS. NORMAL APPENDIX. NO CHANGE COMPARED TO OLD EXAM.
[2018-08-05 22:08] VITALS: PULSE 72
== END 2018-08-05 22:08 | disposition home or self-care (01) ==
LOC: EC 18:18
DX: R10.13 Epigastric pain (principal); R10.30 Lower abdominal pain, unspecified; R19.7 Diarrhea, unspecified; E11.9 Type 2 diabetes mellitus without complications; K21.9 Gastro-esophageal reflux disease without esophagitis; I10 Essential (primary) hypertension; Z79.84 Long term (current) use of oral hypoglycemic drugs; Z79.1 Long term (current) use of non-steroidal anti-inflammatories (NSAID); Z79.899 Other long term (current) drug therapy
CPT/HCPCS: 36415; 80053; 83690; 85025; 81001; 81025; 87081; 87430; 74177; 99284; 96374; 96361; C9113; Q9967

== ENCOUNTER 2018-09-04 16:32 | Emergency (ER) | payer OTHER ==
[2018-09-04 17:53] VITALS: BP 123/76; PULSE 82; RESP 16; TEMP 98
--- NOTE | 2018-09-04 18:47 | ED ---
ENT HPI - General Chief complaint: ENT Stated complaint: sore neck/face Time Seen by Provider: 09/04/18 17:54 Source: family Mode of arrival: ambulatory Limitations: no limitations - History of Present Illness Initial comments: 53yo female presenting for redness under her eyes and sore thraot x 3 days. Patient states that she had occasional redness every so often under the eyes, she states is comes and goes. She states it began 3-4 days ago, she states 2-3 days ago she began experiencing sore throat with swallowing. Denies fever, cough, difficulty breathing or difficulty swallowing. Patient denies pain with EOM, or swelling of the eye lids. Remainign ROS (-) Upon arrival patient appears well. - Related Data Home Medications Medication Instructions Recorded Confirmed Glimepiride [Amaryl] 2 mg PO BID 11/06/16 08/30/18 metFORMIN HCL [Glucophage] 500 mg PO BID 04/26/18 08/30/18 Loratadine [Claritin] 10 mg PO HS 06/01/18 08/30/18 Meloxicam 15 mg PO DAILY 06/01/18 08/30/18 Multivitamins, Thera [Multivitamin 1 tab PO DAILY 06/01/18 08/30/18 (formulary)] Omeprazole 20 mg PO DAILY 06/01/18 08/30/18 amLODIPine [Norvasc] 10 mg PO DAILY 06/01/18 08/30/18 Pantoprazole Sodium [Protonix] 20 mg PO DAILY 08/30/18 08/30/18 Previous Rx's Medication Instructions Recorded predniSONE 20 mg PO BID 5 Days #10 tab 09/04/18 Allergies Allergy/AdvReac Type Severity Reaction Status Date / Time No Known Allergies Allergy Verified 09/04/18 17:53 Review of Systems ROS Statement: Those systems with pertinent positive or pertinent negative responses have been documented in the HPI. ROS Other: All systems not noted in ROS Statement are negative. Past Medical History Past Medical History: Diabetes Mellitus, GERD/Reflux, Hyperlipidemia, Hypertension History of Any Multi-Drug Resistant Organisms: None Reported Past Surgical History: No Surgical Hx Reported Additional Past Surgical History / Comment(s): removal of breast, unk if CA Past Anesthesia/Blood Transfusion Reactions: No Reported Reaction Past Psychological History: No Psychological Hx Reported Smoking Status: Never smoker Past Alcohol Use History: None Reported Past Drug Use History: None Reported - Past Family History Mother Family Medical History: No Reported History General Exam - General Exam Comments Initial Comments: General: The patient is awake and alert, in no distress, and does not appear acutely ill. Eye: +3 mm pupils are equal, round and reactive to light, extra-ocular movements are intact. No nystagmus. There is normal conjunctiva bilaterally. No signs of icterus. No photophobia Ears, nose, mouth and throat: There are moist mucous membranes and no oral lesions. Oropharynx was mildly erythematous there is no tonsillar enlargement exudates or lesions. Uvula midline. Tympanic membranes are not erythematous or is no effusions bulging or retraction. No tenderness to palpation of the mastoid. No anterior cervical lymphadenopathy. No tripoding, no drooling. Mild erythema under the eys b/l no significant swelling. No pain with EOM. Neck: The neck is supple, there is no tenderness or JVD. No nuchal rigidity Cardiovascular: There is a regular rate and rhythm. No murmur, rub or gallop is appreciated. Respiratory: Lungs are clear to auscultation, respirations are non-labored, breath sounds are equal. No wheezes, stridor, rales, or rhonchi. No retractions or abdominal breathing. Gastrointestinal: Soft, non-distended, non-tender abdomen without masses or organomegaly noted. There is no rebound or guarding present. Bowel sounds are unremarkable. Musculoskeletal: Normal ROM, no tenderness. Strength 5/5. Sensation intact. Radial pulses equal bilaterally 2+. Neurological: A&O x 3. CN II-XII intact, There are no obvious motor or sensory deficits. Coordination appears grossly intact. Speech appears normal, no muffling. Skin: Skin is warm and dry and no rashes or lesions are noted. No extremity edema Psychiatric: Cooperative Limitations: no limitations Course Vital Signs 09/04/18 17:50 Temperature 98 F Pulse Rate 82 Respiratory 16 Rate Blood Pressure 123/76 O2 Sat by Pulse 98 Oximetry Medical Decision Making - Medical Decision Making Very well-appearing 53-year-old female. Complaint of sore throat. Oropharynx is mildly erythematous there is no tonsillar exudates. Patient has no stridor. Lungs clear. Patient states redness under the eyes is chronic occuring on and and off appears to be a dermatitis. No findings consistent with a preseptal cellulitis. No warmth, no conjunctival injection, no pain with EOM. Patient will be started on prednisone and given pcp f/u. Return parameters were discussed and patient was discharged appearing well. Disposition Clinical Impression: Dermatitis, Pharyngitis Disposition: HOME SELF-CARE Condition: Good Instructions (If sedation given, give patient instructions): Pharyngitis (ED), Dermatitis (ED) Additional Instructions: Please use medication as discussed. Please follow-up with family doctor in the next 2 days.. Please return to emergency room if the symptoms increase or w orsen or for any other concerns. Prescriptions: predniSONE 20 mg PO BID 5 Days #10 tab Is patient prescribed a controlled substance at d/c from ED?: No Referrals: Dontrell Pedroza MD [Primary Care Provider] - 1-2 days Time of Disposition: 18:47
== END 2018-09-04 19:05 | disposition home or self-care (01) ==
LOC: EC 16:32
DX: J02.9 Acute pharyngitis, unspecified (principal); L30.9 Dermatitis, unspecified; E11.9 Type 2 diabetes mellitus without complications; K21.9 Gastro-esophageal reflux disease without esophagitis; I10 Essential (primary) hypertension; Z79.84 Long term (current) use of oral hypoglycemic drugs; Z79.1 Long term (current) use of non-steroidal anti-inflammatories (NSAID); Z79.899 Other long term (current) drug therapy
CPT/HCPCS: 99283

== ENCOUNTER 2018-09-06 09:13 | Day surgery (SDC) | payer OTHER ==
[2018-08-30 15:36] VITALS: BMI 27.3
[~2018-09-06 09:13] MED LIST: LACTATED RINGERS 1,000 ML IV SCH; LIDOCAINE 1% 20 ML VIAL (10MG/ML) FOR IV START INTRADERMA PRN
[2018-09-06 09:44] VITALS: TEMP 96.5
[2018-09-06] MEDS ORDERED: PROPOFOL 10 MG/ML 20 ML VIAL IV ONE (10:36)
--- NOTE | 2018-09-06 10:49 | P.PCN ---
Date of Procedure: 09/06/18 Procedure(s) Performed: BRIEF HISTORY: Patient is a 53-year-old, pleasant, female, scheduled for an upper endoscopy as a part of evaluation of chronic epigastric pain for the last 2 years duration. Her symptoms are worse with eating and occasionally has postprandial diarrhea. She was recently started Prilosec 20 mg a month ago and pain has improved. She is scheduled for an upper endoscopy to evaluate further and rule out peptic ulcer disease. PROCEDURE PERFORMED: Esophagogastroduodenoscopy with biopsy. PREOPERATIVE DIAGNOSIS: Chronic epigastric pain of 2 years duration. IV sedation per anesthesia. PROCEDURE: After informed consent was obtained, the patient was brought into the endoscopy unit. IV sedation was administered by Anesthesia under continuous monitoring. Initially the Olympus GIF-140 video endoscope was inserted into the mouth. Esophagus intubated without any difficulty. It was gradually advanced into the stomach and duodenum and carefully examined. The bulb and the second part of the duodenum appeared normal. The scope at this time was withdrawn to the stomach, adequately insufflated with air, and upon careful examination, mucosa of the antrum had mild diffuse gastritis and biopsies were done from this area. The body, cardia and the fundus appeared normal. The scope was then withdrawn into the esophagus. The GE junction was located at 39 cm from the incisors. The esophagus appeared normal. There were no erosions or ulcerations seen and the patient tolerated the procedure well. IMPRESSION: 1. Mild antral gastritis. 2. But no evidence of esophagitis or peptic ulcer disease. RECOMMENDATIONS: The findings of this examination were discussed with the patient as well as a family. She was advised to follow with the biopsy results. She will continue with Prilosec 20 mg daily and follow antireflux measures. She'll be seen in office in a month.
[2018-09-06 10:54] VITALS: BP 145/85; PULSE 82; RESP 18
== END 2018-09-06 12:13 | disposition home or self-care (01) ==
LOC: ORWHC2ENDO 09:13
PROVIDERS: ATTEND Internal Medicine Gastroenterology
DX: K29.50 Unspecified chronic gastritis without bleeding (principal); I10 Essential (primary) hypertension; E78.5 Hyperlipidemia, unspecified; E11.9 Type 2 diabetes mellitus without complications; K21.9 Gastro-esophageal reflux disease without esophagitis; Z79.899 Other long term (current) drug therapy; Z79.84 Long term (current) use of oral hypoglycemic drugs
CPT/HCPCS: 88305; 43239; J2704

== ENCOUNTER → 2018-11-09 | Outpatient (CLI) | payer OTHER ==
[2018-11-09 19:11] LABS: Hemoglobin A1C 8.7 % (4.0-6.0)
[2018-11-09 19:33] LABS: African American GFR (CKD) 118.9 (60.0-200.0); Albumin 4.4 g/dL (3.80-4.90); Albumin/Globulin Ratio 1.91 (1.60-3.17); Anion Gap 10.5 mmol/L (4.00-12.00); BUN/Creat Ratio 16.67 Ratio (12.00-20.00); Carbon Dioxide 23.5 mmol/L (21.6-31.8); Chol/HDL Ratio 2.73; Globulin 2.3 g/dL (1.6-3.3); LDL Cholesterol,Calculated 67.8 mg/dL (0.0-131.0); Potassium 4.2 mmol/L (3.5-5.5); Total Bilirubin 0.2 mg/dL (0.3-1.2); Total Protein 6.7 g/dL (6.2-8.2); VLDL Calculation 43.2 mg/dL (5.00-40.00)
== END | disposition home or self-care (01) ==
LOC: LABWHC1 11:15
PROVIDERS: ATTEND Internal Medicine
DX: I10 Essential (primary) hypertension (principal); E11.9 Type 2 diabetes mellitus without complications; R51 Headache; R10.84 Generalized abdominal pain
CPT/HCPCS: 36415; 80053; 80061; 83036

== ENCOUNTER → 2018-11-13 | Outpatient (CLI) | payer OTHER ==
--- NOTE | 2018-11-13 09:07 | CT ---
EXAMINATION TYPE: CT brain wo con DATE OF EXAM: 11/13/2018 HISTORY: WHEELER CT DLP: 978.2 mGycm. Automated Exposure Control for Dose Reduction was Utilized. TECHNIQUE: CT scan of the head is performed without contrast. COMPARISON: None. FINDINGS: There is no acute intracranial hemorrhage or midline shift identified. Ventricles and sul ci are normal in size for patient's age. Lui-white matter differentiation is fairly well-preserved. The globes are intact and the visualized sinuses are clear. IMPRESSION: No acute intracranial hemorrhage or midline shift. Unremarkable study.
== END | disposition home or self-care (01) ==
LOC: RADCTMAIN 08:41
PROVIDERS: ATTEND Internal Medicine
DX: R51 Headache (principal)
CPT/HCPCS: 70450

== ENCOUNTER → 2018-12-06 | Outpatient (CLI) | payer OTHER ==
--- NOTE | 2018-12-07 11:44 | MM ---
Reason for exam: additional evaluation requested from prior study. Last mammogram was performed 7 years and 7 months ago. Physical Findings: Nurse Summary: 0.5-1.5cm nodule in the left breast at 12 o'clock and 9 o'clock (nurse kp). MG 3D Diag Mammo W/Cad ANGIE Bilateral CC and MLO view(s) were taken. Prior study comparison: May 06, 2011, mammogram, performed at [facility]. The breast tissue is heterogeneously dense. This may lower the sensitivity of mammography. There are benign appearing round, dystrophic, linear calcifications bilaterally. There is no discrete abnormality. These results were verbally communicated with the patient on 12/07/18. ASSESSMENT: Incomplete: need additional imaging evaluation, BI-RAD 0 RECOMMENDATION: Ultrasound of the left breast. (palpables 12 o'clock and 9 o'clock)
--- NOTE | 2018-12-07 11:46 | USB ---
Reason for exam: additional evaluation requested from abnormal screening. US Breast Limited LT Left limited breast ultrasound including focal area of concern, retroareolar and axilla demonstrates a 5 x 2 x 4mm oval, cystic lesion at 1 o'clock. No cystic or solid lesion seen at BB's. These results were verbally communicated with the patient on 12/07/18. ASSESSMENT: Benign, BI-RAD 2 RECOMMENDATION: Routine screening mammogram of both breasts in 1 year. Manage patient on a clinical basis.
== END | disposition home or self-care (01) ==
LOC: RADMAMWWP 08:24
PROVIDERS: ATTEND Internal Medicine
DX: N64.4 Mastodynia (principal); R92.8 Other abnormal and inconclusive findings on diagnostic imaging of breast
CPT/HCPCS: 77066; 76642; G0279; 77062

== ENCOUNTER 2019-01-29 16:34 | Emergency (ER) | payer OTHER ==
[2019-01-29 16:56] VITALS: TEMP 97.7
[2019-01-29] MEDS ORDERED: SODIUM CHLORIDE 0.9% 1,000 ML IV STA ×3 (17:36→19:19)
--- NOTE | 2019-01-29 18:13 | ED ---
Dizziness HPI - General Chief Complaint: Dizziness Stated Complaint: headache/dizziness Time Seen by Provider: 01/29/19 17:10 Source: patient, RN notes reviewed, old records reviewed Mode of arrival: ambulatory Limitations: language barrier - History of Present Illness Initial Comments: This 53-year-old female with history limited by leg lift. History obtained from patient's was at bedside as well as family member who is interpreting over the phone. Patient will occasional abdominal pain nausea fevers and chills. No specific medical history no medications has no recent travel history no family members with similar complaints with no diarrhea. Patient currently without any abdominal pain no chest pain or shortness of MD Complaint: dizziness, other (Nausea and abdominal pain and body aches) -: week(s) Timing: gradual onset Description: nausea History of Same: Yes History of Trauma: No Severity: moderate Improves With: remaining still, rehydration Worsens With: nothing Associated Symptoms: chest pain, fever/chills, loss of appetite, weakness - Related Data Home Medications Medication Instructions Recorded Confirmed Glimepiride [Amaryl] 2 mg PO BID 11/06/16 01/29/19 metFORMIN HCL [Glucophage] 500 mg PO TID 04/26/18 01/29/19 Loratadine [Claritin] 10 mg PO HS 06/01/18 01/29/19 Meloxicam 15 mg PO DAILY 06/01/18 01/29/19 Multivitamins, Thera [Multivitamin 1 tab PO DAILY 06/01/18 01/29/19 (formulary)] Omeprazole 20 mg PO BID PRN 06/01/18 01/29/19 amLODIPine [Norvasc] 10 mg PO DAILY 06/01/18 01/29/19 Atorvastatin [Lipitor] 20 mg PO DAILY 01/29/19 01/29/19 Butalb/APAP/Caff 50-325-40Mg 1 tab PO DAILY PRN 01/29/19 01/29/19 [Fioricet 50-325-40] Allergies Allergy/AdvReac Type Severity Reaction Status Date / Time No Known Allergies Allergy Verified 01/29/19 18:15 Review of Systems ROS Statement: Those systems with pertinent positive or pertinent negative responses have been documented in the HPI. ROS Other: All systems not noted in ROS Statement are negative. Past Medical History Past Medical History: Diabetes Mellitus, GERD/Reflux, Hyperlipidemia, Hypertension History of Any Multi-Drug Resistant Organisms: None Reported Past Surgical History: No Surgical Hx Reported Additional Past Surgical History / Comment(s): removal of breast, unk if CA Past Anesthesia/Blood Transfusion Reactions: No Reported Reaction Past Psychological History: No Psychological Hx Reported Smoking Status: Never smoker Past Alcohol Use History: None Reported Past Drug Use History: None Reported - Past Family History Mother Family Medical History: No Reported History General Exam Limitations: no limitations General appearance: alert, in no apparent distress Head exam: Present: atraumatic, normocephalic, normal inspection Eye exam: Present: normal appearance, PERRL, EOMI. Absent: scleral icterus, conjunctival injection, periorbital swelling ENT exam: Present: normal exam, mucous membranes moist Neck exam: Present: normal inspection. Absent: tenderness, meningismus, lymphadenopathy Respiratory exam: Present: normal lung sounds bilaterally. Absent: respiratory distress, wheezes, rales, rhonchi, stridor Cardiovascular Exam: Present: regular rate, normal rhythm, normal heart sounds. Absent: systolic murmur, diastolic murmur, rubs, gallop, clicks GI/Abdominal exam: Present: soft, normal bowel sounds. Absent: distended, tenderness, guarding, rebound, rigid Extremities exam: Present: normal inspection, full ROM, normal capillary refill. Absent: tenderness, pedal edema, joint swelling, calf tenderness Back exam: Present: normal inspection Neurological exam: Present: alert, oriented X3, CN II-XII intact Psychiatric exam: Present: normal affect, normal mood Skin exam: Present: warm, dry, intact, normal color. Absent: rash Course Vital Signs 01/29/19 01/29/19 01/29/19 16:53 18:30 19:00 Temperature 97.7 F Pulse Rate 86 80 83 Respiratory 18 18 16 Rate Blood Pressure 146/81 149/81 137/73 O2 Sat by Pulse 99 98 Oximetry - Reevaluation(s) Reevaluation #1: 01/29/19 18:36 Medical record Reevaluation #2: 01/29/19 19:21 Patient's pain symptoms are improved feeling better with hydration EKG Findings - EKG Comments: EKG Findings:: G shows sinus rhythm rate of 89, NV 140 QRS 78, QTC 435 Medical Decision Making - Medical Decision Making 53 female with to the ED with multiple nonspecific symptoms. Patient symptoms are significantly improved currently patient had rehydrated here and be di scharged - Lab Data Result diagrams: 01/29/19 18:08 01/29/19 18:08 Lab Results 01/29/19 01/29/19 01/29/19 Range/Units 18:08 18:08 18:08 WBC 9.1 (3.8-10.6) k/uL RBC 5.69 H (3.80-5.40) m/uL Hgb 14.0 (11.4-16.0) gm/dL Hct 45.1 (34.0-46.0) % MCV 79.2 L (80.0-100.0) fL MCH 24.7 L (25.0-35.0) pg MCHC 31.1 (31.0-37.0) g/dL RDW 14.1 (11.5-15.5) % Plt Count 488 H (150-450) k/uL Neutrophils % 49 % Lymphocytes % 44 % Monocytes % 3 % Eosinophils % 2 % Basophils % 0 % Neutrophils # 4.5 (1.3-7.7) k/uL Lymphocytes # 4.0 (1.0-4.8) k/uL Monocytes # 0.3 (0-1.0) k/uL Eosinophils # 0.2 (0-0.7) k/uL Basophils # 0.0 (0-0.2) k/uL PT (9.0-12.0) sec INR (<1.2) APTT (22.0-30.0) sec Sodium 141 (137-145) mmol/L Potassium 4.0 (3.5-5.1) mmol/L Chloride 108 H (98-107) mmol/L Carbon Dioxide 18 L (22-30) mmol/L Anion Gap 15 mmol/L BUN 8 (7-17) mg/dL Creatinine 0.53 (0.52-1.04) mg/dL Est GFR (CKD-EPI)AfAm >90 (>60 ml/min/1.73 sqM) Est GFR (CKD-EPI)NonAf >90 (>60 ml/min/1.73 sqM) Glucose 288 H (74-99) mg/dL Plasma Lactic Acid Nadir (0.7-2.0) mmol/L Calcium 10.8 H (8.4-10.2) mg/dL Phosphorus 3.6 (2.5-4.5) mg/dL Magnesium 1.9 (1.6-2.3) mg/dL Total Bilirubin 0.3 (0.2-1.3) mg/dL AST 26 (14-36) U/L ALT 46 (9-52) U/L Alkaline Phosphatase 90 (38-126) U/L Creatine Kinase 58 (30-135) U/L Troponin I (0.000-0.034) ng/mL NT-Pro-B Natriuret Pep pg/mL Total Protein 8.5 H (6.3-8.2) g/dL Albumin 4.9 (3.5-5.0) g/dL Urine Color Urine Appearance (Clear) Urine pH (5.0-8.0) Ur Specific [place] (1.001-1.035) Urine Protein (Negative) Urine Glucose (UA) (Negative) Urine Ketones (Negative) Urine Blood (Negative) Urine Nitrite (Negative) Urine Bilirubin (Negative) Urine Urobilinogen (<2.0) mg/dL Ur Leukocyte Esterase (Negative) Urine RBC (0-5) /hpf Urine WBC (0-5) /hpf Ur Squamous Epith Cells (0-4) /hpf Urine Bacteria (None) /hpf Influenza Type A RNA Not Detected (Not Detectd) Influenza Type B (PCR) Not Detected (Not Detectd) 01/29/19 01/29/19 01/29/19 Range/Units 18:08 18:08 18:08 WBC (3.8-10.6) k/uL RBC (3.80-5.40) m/uL Hgb (11.4-16.0) gm/dL Hct (34.0-46.0) % MCV (80.0-100.0) fL MCH (25.0-35.0) pg MCHC (31.0-37.0) g/dL RDW (11.5-15.5) % Plt Count (150-450) k/uL Neutrophils % % Lymphocytes % % Monocytes % % Eosinophils % % Basophils % % Neutrophils # (1.3-7.7) k/uL Lymphocytes # (1.0-4.8) k/uL Monocytes # (0-1.0) k/uL Eosinophils # (0-0.7) k/uL Basophils # (0-0.2) k/uL PT 9.6 (9.0-12.0) sec INR 0.9 (<1.2) APTT 23.1 (22.0-30.0) sec Sodium (137-145) mmol/L Potassium (3.5-5.1) mmol/L Chloride (98-107) mmol/L Carbon Dioxide (22-30) mmol/L Anion Gap mmol/L BUN (7-17) mg/dL Creatinine (0.52-1.04) mg/dL Est GFR (CKD-EPI)AfAm (>60 ml/min/1.73 sqM) Est GFR (CKD-EPI)NonAf (>60 ml/min/1.73 sqM) Glucose (74-99) mg/dL Plasma Lactic Acid Nadir 3.2 H* (0.7-2.0) mmol/L Calcium (8.4-10.2) mg/dL Phosphorus (2.5-4.5) mg/dL Magnesium (1.6-2.3) mg/dL Total Bilirubin (0.2-1.3) mg/dL AST (14-36) U/L ALT (9-52) U/L Alkaline Phosphatase (38-126) U/L Creatine Kinase (30-135) U/L Troponin I (0.000-0.034) ng/mL NT-Pro-B Natriuret Pep 16 pg/mL Total Protein (6.3-8.2) g/dL Albumin (3.5-5.0) g/dL Urine Color Urine Appearance (Clear) Urine pH (5.0-8.0) Ur Specific [place] (1.001-1.035) Urine Protein (Negative) Urine Glucose (UA) (Negative) Urine Ketones (Negative) Urine Blood (Negative) Urine Nitrite (Negative) Urine Bilirubin (Negative) Urine Urobilinogen (<2.0) mg/dL Ur Leukocyte Esterase (Negative) Urine RBC (0-5) /hpf Urine WBC (0-5) /hpf Ur Squamous Epith Cells (0-4) /hpf Urine Bacteria (None) /hpf Influenza Type A RNA (Not Detectd) Influenza Type B (PCR) (Not Detectd) 01/29/19 01/29/19 Range/Units 18:08 18:20 WBC (3.8-10.6) k/uL RBC (3.80-5.40) m/uL Hgb (11.4-16.0) gm/dL Hct (34.0-46.0) % MCV (80.0-100.0) fL MCH (25.0-35.0) pg MCHC (31.0-37.0) g/dL RDW (11.5-15.5) % Plt Count (150-450) k/uL Neutrophils % % Lymphocytes % % Monocytes % % Eosinophils % % Basophils % % Neutrophils # (1.3-7.7) k/uL Lymphocytes # (1.0-4.8) k/uL Monocytes # (0-1.0) k/uL Eosinophils # (0-0.7) k/uL Basophils # (0-0.2) k/uL PT (9.0-12.0) sec INR (<1.2) APTT (22.0-30.0) sec Sodium (137-145) mmol/L Potassium (3.5-5.1) mmol/L Chloride (98-107) mmol/L Carbon Dioxide (22-30) mmol/L Anion Gap mmol/L BUN (7-17) mg/dL Creatinine (0.52-1.04) mg/dL Est GFR (CKD-EPI)AfAm (>60 ml/min/1.73 sqM) Est GFR (CKD-EPI)NonAf (>60 ml/min/1.73 sqM) Glucose (74-99) mg/dL Plasma Lactic Acid Nadir (0.7-2.0) mmol/L Calcium (8.4-10.2) mg/dL Phosphorus (2.5-4.5) mg/dL Magnesium (1.6-2.3) mg/dL Total Bilirubin (0.2-1.3) mg/dL AST (14-36) U/L ALT (9-52) U/L Alkaline Phosphatase (38-126) U/L Creatine Kinase (30-135) U/L Troponin I <0.012 (0.000-0.034) ng/mL NT-Pro-B Natriuret Pep pg/mL Total Protein (6.3-8.2) g/dL Albumin (3.5-5.0) g/dL Urine Color Light Yellow Urine Appearance Clear (Clear) Urine pH 5.5 (5.0-8.0) Ur Specific [place] 1.002 (1.001-1.035) Urine Protein Negative (Negative) Urine Glucose (UA) 3+ H (Negative) Urine Ketones Negative (Negative) Urine Blood Small H (Negative) Urine Nitrite Negative (Negative) Urine Bilirubin Negative (Negative) Urine Urobilinogen <2.0 (<2.0) mg/dL Ur Leukocyte Esterase Negative (Negative) Urine RBC 1 (0-5) /hpf Urine WBC <1 (0-5) /hpf Ur Squamous Epith Cells <1 (0-4) /hpf Urine Bacteria Rare H (None) /hpf Influenza Type A RNA (Not Detectd) Influenza Type B (PCR) (Not Detectd) - Radiology Data Radiology results: report reviewed (Chest x-ray is negative for acute disease CT brain is negative for acute disease), image reviewed Disposition Clinical Impression: Dehydration, Hyperglycemia, Viral syndrome Disposition: HOME SELF-CARE Condition: Good Instructions (If sedation given, give patient instructions): Viral Syndrome (ED) Is patient prescribed a controlled substance at d/c from ED?: No Referrals: Dontrell Pedroza MD [Primary Care Provider] - 1-2 days
[2019-01-29 18:24] LABS: Basophils % (A) 0 %; Eosinophils # (A) 0.2 k/uL (0-0.7); Eosinophils % (A) 2 %; HCT 45.1 % (34.0-46.0); Lymphocytes % (A) 44 %; MCH 24.7 pg (25.0-35.0); MCHC 31.1 g/dL (31.0-37.0); MCV 79.2 fL (80.0-100.0); Mean Platelet Volume 6.4; Monocytes # (A) 0.3 k/uL (0-1.0); Monocytes % (A) 3 %; Neutrophils # (A) 4.5 k/uL (1.3-7.7); Neutrophils % (A) 49 %; Platelet Count 488 k/uL (150-450); RBC 5.69 m/uL (3.80-5.40); RDW 14.1 % (11.5-15.5); WBC 9.1 k/uL (3.8-10.6)
[2019-01-29 18:29] LABS: Appearance,Urine Clear (Clear); Bacteria,Urine Rare /hpf; Bilirubin,Urine Negative (Negative); Blood,Urine Small (Negative); Color,Urine Light Yellow; Glucose,Urine (UA) 3+ (Negative); Ketones,Urine Negative (Negative); Leukocyte Esterase,Urine Negative (Negative); Nitrite,Urine Negative (Negative); PH, Urine 5.5 (5.0-8.0); Protein,Urine Negative (Negative); RBC,Urine 1 /hpf (0-5); Specific Gravity,Urine 1.002 (1.001-1.035); Squamous Epithelial Cell,Urine <1 /hpf (0-4); Urobilinogen,Urine <2.0 mg/dL (<2.0); WBC,Urine <1 /hpf (0-5)
[2019-01-29 18:29] LABS: ALT 46 U/L (9-52); AST 26 U/L (14-36); African American GFR (CKD) >90 (>60 ml/min/1.73 sqM); Albumin 4.9 g/dL (3.5-5.0); Alkaline Phosphatase 90 U/L (38-126); Anion Gap 15 mmol/L; Blood Urea Nitrogen 8 mg/dL (7-17); Calcium 10.8 mg/dL (8.4-10.2); Carbon Dioxide 18 mmol/L (22-30); Chloride 108 mmol/L (98-107); Creatine Kinase 58 U/L (30-135); Glucose 288 mg/dL (74-99); INR 0.9 (<1.2); Magnesium 1.9 mg/dL (1.6-2.3); Non-African American GFR(CKD) >90 (>60 ml/min/1.73 sqM); Partial Thromboplastin Time 23.1 sec (22.0-30.0); Phosphorus 3.6 mg/dL (2.5-4.5); Prothrombin Time 9.6 sec (9.0-12.0); Sodium 141 mmol/L (137-145); Total Bilirubin 0.3 mg/dL (0.2-1.3); Total Protein 8.5 g/dL (6.3-8.2)
--- NOTE | 2019-01-29 18:32 | XR ---
EXAMINATION TYPE: XR chest 2V DATE OF EXAM: 01/29/2019 COMPARISON: NONE HISTORY: Weakness, dizziness, chest pain. TECHNIQUE: Frontal and lateral views of the chest are obtained. FINDINGS: Numerous nodular densities are seen overlying the left lung. Correlate for radiopaque densi ties in the patient's skin or clothing. There is no focal air space opacity, pleural effusion, or pn eumothorax seen. The cardiac silhouette size is within normal limits. The osseous structures are i ntact. IMPRESSION: No acute cardiopulmonary process. Numerous subcentimeter nodular densities overlying the left lung. Correlate for radiopaque densities in the patient's skin or clothing.
[2019-01-29 19:04] VITALS: RESP 16
[2019-01-29] MEDS ORDERED: SODIUM CHLORIDE 0.9% 500 ML 500 ML IV STA (19:19)
[2019-01-29] MEDS ORDERED: PANTOPRAZOLE 40 MG/10 ML VIAL IVP STA (19:19)
[2019-01-29] MEDS ORDERED: KETOROLAC 30 MG/ML 1 ML VIAL IVP STA (19:19)
[2019-01-29] MEDS ORDERED: ONDANSETRON 4 MG/2 ML VIAL IVP STA (19:19)
--- NOTE | 2019-01-29 20:01 | CT ---
EXAMINATION TYPE: CT brain wo con DATE OF EXAM: 01/29/2019 COMPARISON: NONE HISTORY: Headaches x1 week, weakness, dizziness CT DLP: 1074.4 mGycm. Automated Exposure Control for Dose Reduction was Utilized. TECHNIQUE: CT scan of the head is performed without contrast. FINDINGS: There is no acute intracranial hemorrhage, mass effect, or midline shift identified. The ventricles and sulci are symmetric compatible with age-related volume loss. The globes are intact a nd the visualized sinuses are clear. IMPRESSION: No acute intracranial hemorrhage, mass effect, or midline shift is seen.
[2019-01-29 20:40] VITALS: BP 135/79; PULSE 85
--- NOTE | 2019-01-29 21:40 | CT ---
EXAMINATION TYPE: CT abdomen pelvis w con DATE OF EXAM: 01/29/2019 HISTORY: Abdomen pain. Dizziness. CT DLP: 763.6mGycm Automated Exposure Control for Dose Reduction was Utilized. CONTRAST: CT scan of the abdomen and pelvis is performed with IV Contrast, patient injected with 100 mL of Isov ue 300. COMPARISON: 08/05/2018. FINDINGS: LUNG BASES: No significant abnormality is appreciated. LIVER/GB: Slight hypoattenuation of the hepatic parenchyma likely related to early hepatic steatosis. Left hepatic lobe is elongated extending into the left upper quadrant. Gallbladder demonstrates no e vidence of radiopaque calculi. PANCREAS: No significant abnormality is seen. SPLEEN: No significant abnormality is seen. ADRENALS: No nodularity or thickening. KIDNEYS: Kidneys enhance and excrete symmetrically without hydronephrosis. Too small to accurately ch aracterize left cortical lesions are seen. BOWEL: Appendix is retrocecal and within normal limits of size. No dilated large or small bowel. Few scattered colonic diverticula without pericolonic fat stranding. Decompression of the stomach with po ssible bowel wall thickening versus incomplete distention. UTERUS/ADNEXA: No gross abnormality seen. LYMPH NODES: No greater than 1cm abdominal or pelvic lymph nodes are appreciated. OSSEOUS STRUCTURES: No significant abnormality is seen. OTHER: Moderate atheromatous change of the abdominal aorta and its branches. IMPRESSION: 1. Gastric rugal fold thickening versus incomplete distention. Correlate for symptoms of gastritis. 2. Probable early hepatic steatosis
== END 2019-01-29 21:48 | disposition home or self-care (01) ==
LOC: EC 16:34
DX: E11.65 Type 2 diabetes mellitus with hyperglycemia (principal); E86.0 Dehydration; B34.9 Viral infection, unspecified; K21.9 Gastro-esophageal reflux disease without esophagitis; E78.5 Hyperlipidemia, unspecified; I10 Essential (primary) hypertension; Z79.84 Long term (current) use of oral hypoglycemic drugs; Z79.1 Long term (current) use of non-steroidal anti-inflammatories (NSAID); Z79.899 Other long term (current) drug therapy
CPT/HCPCS: 36415; 93005; 83880; 80053; 82550; 83605; 83735; 84100; 84484; 85025; 85610; 85730; 81001; 87502; 71046; 70450; 74177; 99285; 96374; 96375 ×2; 96361 ×3; J2405; J1885; C9113; Q9967

== ENCOUNTER → 2019-04-26 | Outpatient (CLI) | payer OTHER ==
--- NOTE | 2019-04-26 16:48 | US ---
EXAMINATION TYPE: US kidneys/renal and bladder DATE OF EXAM: 04/26/2019 COMPARISON: Renal ultrasound dated 04/17/2018 and multiple prior CTs dating back to 04/30/2017 CLINICAL HISTORY: R31.9 hematuria. 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 No nephrolithiasis is seen. The urina ry bladder is anechoic. Bilateral ureteral jets are seen. IMPRESSION: There are 2 hyperechoic left renal masses. Most commonly these relate to angiomyolipomas and are best seen on ultrasound as multiple prior CTs demonstrate too small to accurately characteriz e renal lesions. The size of the largest lesion is similar in measurement when measured in a similar fashion to the exam of 04/17/2018. Precautionary six-month follow-up left renal ultrasound is recommen ded.
== END | disposition home or self-care (01) ==
LOC: RADUSWWP 15:43
PROVIDERS: ATTEND Internal Medicine
DX: N28.89 Other specified disorders of kidney and ureter (principal); R31.9 Hematuria, unspecified
CPT/HCPCS: 76770

== ENCOUNTER 2019-12-26 16:57 | Emergency (ER) | payer OTHER ==
[2019-12-26 17:24] VITALS: RESP 18
[2019-12-26] MEDS ORDERED: KETOROLAC 15 MG/ML 1 ML VIAL IVP STA (18:38)
[2019-12-26] MEDS ORDERED: ASPIRIN 81 MG PO STA (18:38)
[2019-12-26] MEDS ORDERED: SODIUM CHLORIDE 0.9% 1,000 ML IV STA (18:38)
[2019-12-26 19:05] LABS: Basophils # (A) 0.1 k/uL (0-0.2); Basophils % (A) 1 %; Eosinophils # (A) 0.4 k/uL (0-0.7); Eosinophils % (A) 3 %; HCT 41.5 % (34.0-46.0); HGB 12.9 gm/dL (11.4-16.0); Lymphocytes # (A) 4.2 k/uL (1.0-4.8); Lymphocytes % (A) 35 %; MCH 24.9 pg (25.0-35.0); MCHC 31.1 g/dL (31.0-37.0); Monocytes # (A) 0.4 k/uL (0-1.0); Monocytes % (A) 4 %; Neutrophils # (A) 6.8 k/uL (1.3-7.7); Neutrophils % (A) 56 %; Platelet Count 436 k/uL (150-450); RBC 5.19 m/uL (3.80-5.40); RDW 14.1 % (11.5-15.5)
--- NOTE | 2019-12-26 19:12 | ED ---
Headache HPI - General Source: RN notes reviewed, old records reviewed Mode of arrival: ambulatory Limitations: language barrier <Angie Whittington - Last Filed: 12/26/19 19:46> <Jese Brush - Last Filed: 12/26/19 21:20> - General Chief Complaint: Headache Stated Complaint: Headache Time Seen by Provider: 12/26/19 18:15 - History of Present Illness Initial Comments: Is a 54-year-old female presents the ER today for enough for concern for sided head and neck pain complaining of shoulder pain and slightly radiate towards her chest. She reports symptoms have been present for 3 days. She reports is worse with movement and palpating her head and neck. Patient reports that she has not taken anything for pain. He denies history of chronic headaches or migraines. There is a language barrier as translation is been completed by family member. (Angie Whittington) - Related Data Home Medications Medication Instructions Recorded Confirmed Glimepiride [Amaryl] 2 mg PO BID 11/06/16 01/29/19 metFORMIN HCL [Glucophage] 500 mg PO TID 04/26/18 01/29/19 Loratadine [Claritin] 10 mg PO HS 06/01/18 01/29/19 Meloxicam 15 mg PO DAILY 06/01/18 01/29/19 Multivitamins, Thera [Multivitamin 1 tab PO DAILY 06/01/18 01/29/19 (formulary)] Omeprazole 20 mg PO BID PRN 06/01/18 01/29/19 amLODIPine [Norvasc] 10 mg PO DAILY 06/01/18 01/29/19 Atorvastatin [Lipitor] 20 mg PO DAILY 01/29/19 01/29/19 Butalb/APAP/Caff 50-325-40Mg 1 tab PO DAILY PRN 01/29/19 01/29/19 [Fioricet 50-325-40] Previous Rx's Medication Instructions Recorded Ibuprofen 800 mg PO Q6HR PRN #20 tablet 12/26/19 Orphenadrine [Norflex] 100 mg PO Q12H #7 tablet.er 12/26/19 Allergies Allergy/AdvReac Type Severity Reaction Status Date / Time No Known Allergies Allergy Verified 12/26/19 17:25 Review of Systems ROS Other: All systems not noted in ROS Statement are negative. <Angie Whittington - Last Filed: 12/26/19 19:46> ROS Other: All systems not noted in ROS Statement are negative. <Jese Brush - Last Filed: 12/26/19 21:20> ROS Statement: Those systems with pertinent positive or pertinent negative responses have been documented in the HPI. Past Medical History Past Medical History: Diabetes Mellitus, GERD/Reflux, Hyperlipidemia, Hyperte nsion History of Any Multi-Drug Resistant Organisms: None Reported Past Surgical History: No Surgical Hx Reported Additional Past Surgical History / Comment(s): removal of breast, unk if CA Past Anesthesia/Blood Transfusion Reactions: No Reported Reaction Past Psychological History: No Psychological Hx Reported Smoking Status: Never smoker Past Alcohol Use History: None Reported Past Drug Use History: None Reported - Past Family History Mother Family Medical History: No Reported History <Angie Whittington - Last Filed: 12/26/19 19:46> General Exam Limitations: language barrier General appearance: alert, in no apparent distress Head exam: Present: atraumatic, normocephalic, normal inspection Eye exam: Present: normal appearance, PERRL, EOMI. Absent: scleral icterus, conjunctival injection, periorbital swelling ENT exam: Present: normal exam, other (Patient had tenderness outpatient over the left side of her neck. No signs of swelling or trauma.) Neck exam: Present: normal inspection. Absent: tenderness, meningismus, lymphadenopathy Respiratory exam: Present: normal lung sounds bilaterally. Absent: respiratory distress, wheezes, rales, rhonchi, stridor Cardiovascular Exam: Present: regular rate, normal rhythm, normal heart sounds. Absent: systolic murmur, diastolic murmur, rubs, gallop, clicks GI/Abdominal exam: Present: soft, normal bowel sounds. Absent: distended, tenderness, guarding, rebound, rigid Extremities exam: Present: normal inspection, full ROM, normal capillary refill. Absent: tenderness, pedal edema, joint swelling, calf tenderness Back exam: Present: normal inspection Neurological exam: Present: alert, oriented X3, CN II-XII intact Psychiatric exam: Present: normal affect, normal mood <Angie hWittington - Last Filed: 12/26/19 19:46> - General Exam Comments Initial Comments: This 54-year-old female. Alert and oriented 3. No distress. (Angie Whittington) Course <Jese Brush - Last Filed: 12/26/19 21:20> Vital Signs 12/26/19 12/26/19 12/26/19 17:22 18:24 19:30 Temperature 98.4 F Pulse Rate 86 73 Respiratory 18 18 18 Rate Blood Pressure 133/83 133/79 O2 Sat by Pulse 100 98 Oximetry 12/26/19 20:35 Temperature Pulse Rate 79 Respiratory 18 Rate Blood Pressure 155/84 O2 Sat by Pulse 99 Oximetry - Reevaluation(s) Reevaluation #1: 12/26/19 21:17 PG supervision: I personally evaluate the patient she did present with complaints of head neck pain. Workup thus far is negative the exam appears be consistent with musculoskeletal pain. (Jese Brush) Medical Decision Making - Lab Data Result diagrams: 12/26/19 19:01 12/26/19 19:01 <Angie Whittington - Last Filed: 12/26/19 19:46> - Lab Data Result diagrams: 12/26/19 19:01 12/26/19 19:01 <Jese Brush - Last Filed: 12/26/19 21:20> - Medical Decision Making 54 rolled female presents with 3 days of headache, neck pain shooting down the left arm with some chest pain. Patient reports the pain seems to be some repro ducible palpation over the head and neck. She is given IV analgesia. Patient EKG and labs reviewed and unremarkable including negative troponin. The length of patient's symptoms and likely cardiac origin with normal EKG and normal troponin for 3 days. Patient case was signed to Dr. Brush pending CT and chest x-ray results. (Angie Whittington) - Lab Data Lab Results 12/26/19 12/26/19 12/26/19 Range/Units 19:01 19:01 19:01 WBC 12.0 H (3.8-10.6) k/uL RBC 5.19 (3.80-5.40) m/uL Hgb 12.9 (11.4-16.0) gm/dL Hct 41.5 (34.0-46.0) % MCV 80.0 (80.0-100.0) fL MCH 24.9 L (25.0-35.0) pg MCHC 31.1 (31.0-37.0) g/dL RDW 14.1 (11.5-15.5) % Plt Count 436 (150-450) k/uL Neutrophils % 56 % Lymphocytes % 35 % Monocytes % 4 % Eosinophils % 3 % Basophils % 1 % Neutrophils # 6.8 (1.3-7.7) k/uL Lymphocytes # 4.2 (1.0-4.8) k/uL Monocytes # 0.4 (0-1.0) k/uL Eosinophils # 0.4 (0-0.7) k/uL Basophils # 0.1 (0-0.2) k/uL PT 9.9 (9.0-12.0) sec INR 0.9 (<1.2) APTT 22.8 (22.0-30.0) sec Sodium 138 (137-145) mmol/L Potassium 4.3 (3.5-5.1) mmol/L Chloride 103 (98-107) mmol/L Carbon Dioxide 24 (22-30) mmol/L Anion Gap 11 mmol/L BUN 15 (7-17) mg/dL Creatinine 0.60 (0.52-1.04) mg/dL Est GFR (CKD-EPI)AfAm >90 (>60 ml/min/1.73 sqM) Est GFR (CKD-EPI)NonAf >90 (>60 ml/min/1.73 sqM) Glucose 277 H (74-99) mg/dL Calcium 9.8 (8.4-10.2) mg/dL Magnesium 1.7 (1.6-2.3) mg/dL Total Bilirubin 0.2 (0.2-1.3) mg/dL AST 26 (14-36) U/L ALT 38 H (4-34) U/L Alkaline Phosphatase 72 (38-126) U/L Troponin I (0.000-0.034) ng/mL Total Protein 7.4 (6.3-8.2) g/dL Albumin 4.2 (3.5-5.0) g/dL 12/26/19 Range/Units 19:01 WBC (3.8-10.6) k/uL RBC (3.80-5.40) m/uL Hgb (11.4-16.0) gm/dL Hct (34.0-46.0) % MCV (80.0-100.0) fL MCH (25.0-35.0) pg MCHC (31.0-37.0) g/dL RDW (11.5-15.5) % Plt Count (150-450) k/uL Neutrophils % % Lymphocytes % % Monocytes % % Eosinophils % % Basophils % % Neutrophils # (1.3-7.7) k/uL Lymphocytes # (1.0-4.8) k/uL Monocytes # (0-1.0) k/uL Eosinophils # (0-0.7) k/uL Basophils # (0-0.2) k/uL PT (9.0-12.0) sec INR (<1.2) APTT (22.0-30.0) sec Sodium (137-145) mmol/L Potassium (3.5-5.1) mmol/L Chloride (98-107) mmol/L Carbon Dioxide (22-30) mmol/L Anion Gap mmol/L BUN (7-17) mg/dL Creatinine (0.52-1.04) mg/dL Est GFR (CKD-EPI)AfAm (>60 ml/min/1.73 sqM) Est GFR (CKD-EPI)NonAf (>60 ml/min/1.73 sqM) Glucose (74-99) mg/dL Calcium (8.4-10.2) mg/dL Magnesium (1.6-2.3) mg/dL Total Bilirubin (0.2-1.3) mg/dL AST (14-36) U/L ALT (4-34) U/L Alkaline Phosphatase (38-126) U/L Troponin I <0.012 (0.000-0.034) ng/mL Total Protein (6.3-8.2) g/dL Albumin (3.5-5.0) g/dL 12/26/19 19:47 EKG shows normal sinus rhythm normal EKG. Ventricular rate 74 bpm. : 56 most seconds. Care is duration is 82 ms. QT QTc is 380/4:30 milliseconds. (Angie Whittington) Disposition <Angie Whittington - Last Filed: 12/26/19 19:46> Is patient prescribed a controlled substance at d/c from ED?: No <Jese Brush - Last Filed: 12/26/19 21:20> Clinical Impression: Myofascial pain, Headache Disposition: HOME SELF-CARE Condition: Good Instructions (If sedation given, give patient instructions): Acute Headache (ED), Musculoskeletal Pain (ED) Additional Instructions: Medication prescription sent to your preferred pharmacy Prescriptions: Ibuprofen 800 mg PO Q6HR PRN #20 tablet PRN Reason: Pain Orphenadrine [Norflex] 100 mg PO Q12H #7 tablet.er Referrals: Dontrell Pedroza MD [Primary Care Provider] - 1-2 days
[2019-12-26 19:15] LABS: ALT 38 U/L (4-34); AST 26 U/L (14-36); African American GFR (CKD) >90 (>60 ml/min/1.73 sqM); Albumin 4.2 g/dL (3.5-5.0); Alkaline Phosphatase 72 U/L (38-126); Anion Gap 11 mmol/L; Blood Urea Nitrogen 15 mg/dL (7-17); Calcium 9.8 mg/dL (8.4-10.2); Carbon Dioxide 24 mmol/L (22-30); Chloride 103 mmol/L (98-107); Glucose 277 mg/dL (74-99); Magnesium 1.7 mg/dL (1.6-2.3); Non-African American GFR(CKD) >90 (>60 ml/min/1.73 sqM); Potassium 4.3 mmol/L (3.5-5.1); Sodium 138 mmol/L (137-145); Total Bilirubin 0.2 mg/dL (0.2-1.3); Total Protein 7.4 g/dL (6.3-8.2)
[2019-12-26 19:18] LABS: INR 0.9 (<1.2); Partial Thromboplastin Time 22.8 sec (22.0-30.0); Prothrombin Time 9.9 sec (9.0-12.0)
[2019-12-26] MEDS ORDERED: ORPHENADRINE 30 MG/ML 2 ML VIAL IVP STA (19:46)
--- NOTE | 2019-12-26 19:52 | CT ---
EXAMINATION TYPE: CT brain wo con DATE OF EXAM: 12/26/2019 COMPARISON: January 29, 2019 HISTORY: c/o headache CT DLP: 1058.4 mGycm Automated exposure control for dose reduction was used. Ventricles and sulci appear normal. There is no mass effect nor midline shift. There is no sign of in tracranial hemorrhage. The calvarium is intact. There is no evidence of cerebral edema. There is norm al aeration of the mastoid sinuses. IMPRESSION: Negative unenhanced head CT scan.
--- NOTE | 2019-12-26 19:54 | XR ---
EXAMINATION TYPE: XR chest 2V DATE OF EXAM: 12/26/2019 COMPARISON: January 29, 2019 HISTORY: Chest pain TECHNIQUE: FINDINGS: Heart and mediastinum are normal. Lungs are clear. Diaphragm is normal. Bony thorax appears normal. There is clothing artifact over the neck. There are chest leads. IMPRESSION: Normal chest. There is clearing of tiny densities over the left lung field that apparentl y were artifact compared to old exam.
[2019-12-26] MEDS ORDERED: methylPREDNISolone SOD SUCCI 125 MG/2 ML VIAL IV STA (21:20)
[2019-12-26 21:33] VITALS: BP 127/74; PULSE 71; TEMP 98.1
== END 2019-12-26 21:33 | disposition home or self-care (01) ==
LOC: EC 16:57
DX: M79.18 Myalgia, other site (principal); R51.9 Headache, unspecified; M54.2 Cervicalgia; R07.9 Chest pain, unspecified; E11.9 Type 2 diabetes mellitus without complications; K21.9 Gastro-esophageal reflux disease without esophagitis; E78.5 Hyperlipidemia, unspecified; I10 Essential (primary) hypertension; Z79.84 Long term (current) use of oral hypoglycemic drugs; Z79.1 Long term (current) use of non-steroidal anti-inflammatories (NSAID); Z79.899 Other long term (current) drug therapy
CPT/HCPCS: 36415; 93005; 80053; 83735; 84484; 85025; 85610; 85730; 71046; 70450; 99285; 96374; 96375 ×2; 96361 ×2; J2360; J2930; J1885

== ENCOUNTER 2020-05-26 14:29 | Emergency (ER) | payer OTHER ==
[2020-05-26 15:48] VITALS: BP 146/88; PULSE 78; RESP 18; TEMP 98
--- NOTE | 2020-05-26 15:49 | ED ---
ENT HPI - General Source: patient, family, RN notes reviewed Limitations: language barrier <Zach Bhakta - Last Filed: 05/26/20 15:46> <Calixto Snowden - Last Filed: 05/26/20 19:29> - General Chief complaint: ENT Stated complaint: Throat pain Time Seen by Provider: 05/26/20 15:46 - History of Present Illness Initial comments: 55-year-old female that presents to the emergency Department with throat pain/something in her throat. She presented with her son who translated for noted that the last couple days after she was brushing her T she feels like something is stuck in her throat is causing irritation and pain. She notes the pain is a 10 out of 10 and constant. She was in no apparent distress or pain while sitting up during the exam interview. (Zach Bhakta) - Related Data Home Medications Medication Instructions Recorded Confirmed Glimepiride [Amaryl] 2 mg PO BID 11/06/16 01/29/19 metFORMIN HCL [Glucophage] 500 mg PO TID 04/26/18 01/29/19 Loratadine [Claritin] 10 mg PO HS 06/01/18 01/29/19 Meloxicam 15 mg PO DAILY 06/01/18 01/29/19 Multivitamins, Thera [Multivitamin 1 tab PO DAILY 06/01/18 01/29/19 (formulary)] Omeprazole 20 mg PO BID PRN 06/01/18 01/29/19 amLODIPine [Norvasc] 10 mg PO DAILY 06/01/18 01/29/19 Atorvastatin [Lipitor] 20 mg PO DAILY 01/29/19 01/29/19 Butalb/APAP/Caff 50-325-40Mg 1 tab PO DAILY PRN 01/29/19 01/29/19 [Fioricet 50-325-40] Previous Rx's Medication Instructions Recorded Ibuprofen 800 mg PO Q6HR PRN #20 tablet 12/26/19 Orphenadrine [Norflex] 100 mg PO Q12H #7 tablet.er 12/26/19 Ibuprofen [Motrin] 600 mg PO Q8HR PRN #30 tab 05/26/20 Allergies Allergy/AdvReac Type Severity Reaction Status Date / Time No Known Allergies Allergy Verified 05/26/20 15:48 Review of Systems ROS Other: All systems not noted in ROS Statement are negative. <Zach Bhakta - Last Filed: 05/26/20 15:46> ROS Other: All systems not noted in ROS Statement are negative. <jazminCalixto - Last Filed: 05/26/20 19:29> ROS Statement: Those systems with pertinent positive or pertinent negative responses have been documented in the HPI. Past Medical History Past Medical History: Diabetes Mellitus, GERD/Reflux, Hyperlipidemia, Hypertension History of Any Multi-Drug Resistant Organisms: None Reported Past Surgical History: No Surgical Hx Reported Additional Past Surgical History / Comment(s): removal of breast, unk if CA Past Anesthesia/Blood Transfusion Reactions: No Reported Reaction Past Psychological History: No Psychological Hx Reported Smoking Status: Never smoker Past Alcohol Use History: None Reported Past Drug Use History: None Reported - Past Family History Mother Family Medical History: No Reported History <BhaktaZach - Last Filed: 05/26/20 15:46> General Exam General appearance: alert, in no apparent distress Head exam: Present: atraumatic, normocephalic, normal inspection Eye exam: Present: normal appearance, PERRL, EOMI. Absent: scleral icterus, conjunctival injection, periorbital swelling ENT exam: Present: normal exam, normal oropharynx, mucous membranes moist Neck exam: Present: normal inspection. Absent: tenderness, meningismus, lymphadenopathy Respiratory exam: Present: normal lung sounds bilaterally. Absent: respiratory distress, wheezes, rales, rhonchi, stridor Cardiovascular Exam: Present: regular rate, normal rhythm, normal heart sounds. Absent: systolic murmur, diastolic murmur, rubs, gallop, clicks GI/Abdominal exam: Present: soft, normal bowel sounds. Absent: distended, tenderness, guarding, rebound, rigid Extremities exam: Present: normal inspection, full ROM, normal capillary refill. Absent: tenderness, pedal edema, joint swelling, calf tenderness Neurological exam: Present: alert, oriented X3, CN II-XII intact Psychiatric exam: Present: normal affect, normal mood Skin exam: Present: warm, dry, intact, normal color. Absent: rash <Zach Bhakta - Last Filed: 05/26/20 15:46> Course Vital Signs 05/26/20 15:40 Temperature 98 F Pulse Rate 78 Respiratory 18 Rate Blood Pressure 146/88 O2 Sat by Pulse 100 Oximetry Medical Decision Making <Calixto Snowden - Last Filed: 05/26/20 19:29> - Medical Decision Making Patient afebrile, per family felt something swollen in the back of her throat and had been poking it. There is an abrasion noted to the uvula, no tonsillar exudate, strep screen was negative, no lymphadenopathy will discharge patient with motrin and follow up with primary care doctor this week. Case discussed with who is agreeable to this plan (Calixto Snowden) - Lab Data Lab Results 05/26/20 Range/Units 17:59 Group A Strep Rapid Negative (Negative) Disposition <Zach Bhakta - Last Filed: 05/26/20 15:46> Is patient prescribed a controlled substance at d/c from ED?: No Time of Disposition: 19:28 <Calixto Snowden - Last Filed: 05/26/20 19:29> Clinical Impression: Sore throat, Uvulitis Disposition: HOME SELF-CARE Condition: Good Instructions (If sedation given, give patient instructions): Uvulitis (ED) Additional Instructions: Take the medication as prescribed, follow up with your primary doctor this week. Prescriptions: Ibuprofen [Motrin] 600 mg PO Q8HR PRN #30 tab PRN Reason: Pain Referrals: Dontrell Pedroza MD [Primary Care Provider] - 1-2 days
--- NOTE | 2020-05-26 17:49 | XR ---
EXAMINATION TYPE: XR soft tissue neck DATE OF EXAM: 05/26/2020 COMPARISON: NONE HISTORY: Foreign body sensation TECHNIQUE: 2 views FINDINGS: Epiglottis appears normal. Prevertebral soft tissues appear normal. Subglottic trachea appe ars normal. Sella turcica is normal. Tonsils and adenoids are within normal limits. IMPRESSION: Negative cervical soft tissue exam. There are multiple rounded densities projected at the base of the neck on the left side and over the occipital bone that could be foreign bodies in the graves ir.
[2020-05-26] MEDS ORDERED: KETOROLAC 15 MG/ML 1 ML VIAL IM STA (17:59)
== END 2020-05-26 19:41 | disposition home or self-care (01) ==
LOC: EC 14:29
DX: K12.2 Cellulitis and abscess of mouth (principal); E11.9 Type 2 diabetes mellitus without complications; K21.9 Gastro-esophageal reflux disease without esophagitis; E78.5 Hyperlipidemia, unspecified; I10 Essential (primary) hypertension
CPT/HCPCS: 70360; 87081; 87430; 96372; 99283

== ENCOUNTER → 2021-10-16 | Outpatient (CLI) | payer OTHER ==
--- NOTE | 2021-10-16 11:50 | US ---
EXAMINATION TYPE: US abdomen complete DATE OF EXAM: 10/16/2021 COMPARISON: CT January 29, 2019 CLINICAL HISTORY: R10.13 epigastric pain. TECHNIQUE: Multiple sonographic images of the abdomen are obtained. FINDINGS: EXAM MEASUREMENTS: Liver Length: 14.5 cm Gallbladder Wall: 0.2 cm CBD: 0.3 cm Spleen: 7.8 cm Right Kidney: 10.1 X 4.0 X 5.0 cm Left Kidney: 11.2 X 3.9 X 4.0 cm DISPLAY ASSOCIATE NOTES: Patient unable to hold her breath, large body habitus, severe overlying bowel gas Pancreas: mostly obscured by bowel gas Liver: Increased attenuation Gallbladder: wnl as seen Evidence for sonographic Low's sign: no CBD: wnl Spleen: wnl Right Kidney: No hydronephrosis or masses seen, limited views Left Kidney: limited visualization, hyperechoic mass measuring 1.0 x 1.3 x 1.4cm Upper IVC: wnl Abd Aorta: atherosclerotic changes No aneurysm and visualized abdominal aorta. Visualized portion of pancreas unremarkable but portions obscured by overlying bowel gas. IVC seen near hepatic dome. Visualized liver heterogeneously hyperec hoic. Evaluation for focal masses suboptimal due to the heterogeneity. Finding likely on basis of dif fuse fatty infiltration. No shown entering mobile gallstones. Kidneys symmetric and within normal sanderson its in size without hydronephrosis. There is 1.2 cm round hyperechoic lesion in the left kidney lower pole level suspicious for small angiomyolipoma correlating with coronal image 45. Spleen is somewhat small in size. IMPRESSION: No acute findings are evident.
== END | disposition home or self-care (01) ==
LOC: RADUSWWP 10:53
PROVIDERS: ATTEND Family Medicine
DX: R10.13 Epigastric pain (principal)
CPT/HCPCS: 76700

== ENCOUNTER 2021-12-29 15:12 | Emergency (ER) | payer OTHER ==
[2021-12-29 15:45] VITALS: BP 139/81; PULSE 82; RESP 20; TEMP 98.5
--- NOTE | 2021-12-29 17:24 | ED ---
General Adult HPI - General Chief complaint: Recheck/Abnormal Lab/Rx Stated complaint: Pain, not feeling well Time Seen by Provider: 12/29/21 17:00 Source: patient, family, RN notes reviewed, old records reviewed Mode of arrival: ambulatory Limitations: language barrier - History of Present Illness Initial comments: This is a 56-year-old female who presents emergency Department because of generalized body aches. Patient's history FROM the because of a language barrier. states the patient has been having body aches for 3 weeks. Patient has an occasional dry cough. Patient is not vaccinated COVID. Patient has been nauseated but his been no vomiting. According to the she's had 2 days of diarrhea but that is stop. Patient states she has a little suprapubic and epigastric abdominal pain on occasion. Patient denies chest pain or palpitations. Patient denies any lightheadedness or dizziness. - Related Data Home Medications Medication Instructions Recorded Confirmed Glimepiride [Amaryl] 2 mg PO BID 11/06/16 01/29/19 metFORMIN HCL [Glucophage] 500 mg PO TID 04/26/18 01/29/19 Loratadine [Claritin] 10 mg PO HS 06/01/18 01/29/19 Meloxicam 15 mg PO DAILY 06/01/18 01/29/19 Multivitamins, Thera [Multivitamin 1 tab PO DAILY 06/01/18 01/29/19 (formulary)] Omeprazole 20 mg PO BID PRN 06/01/18 01/29/19 amLODIPine [Norvasc] 10 mg PO DAILY 06/01/18 01/29/19 Atorvastatin [Lipitor] 20 mg PO DAILY 01/29/19 01/29/19 Butalb/APAP/Caff 50-325-40Mg 1 tab PO DAILY PRN 01/29/19 01/29/19 [Fioricet 50-325-40] Previous Rx's Medication Instructions Recorded Ibuprofen 800 mg PO Q6HR PRN #20 tablet 12/26/19 Orphenadrine [Norflex] 100 mg PO Q12H #7 tablet.er 12/26/19 Ibuprofen [Motrin] 600 mg PO Q8HR PRN #30 tab 05/26/20 Nitrofurantoin Monohyd/M-Cryst 100 mg PO Q12HR #14 cap 12/29/21 [Macrobid] Allergies Allergy/AdvReac Type Severity Reaction Status Date / Time No Known Allergies Allergy Verified 12/29/21 15:45 Review of Systems ROS Statement: Those systems with pertinent positive or pertinent negative responses have been documented in the HPI. ROS Other: All systems not noted in ROS Statement are negative. Past Medical History Past Medical History: Diabetes Mellitus, GERD/Reflux, Hyperlipidemia, Hypertension History of Any Multi-Drug Resistant Organisms: None Reported Past Surgical History: No Surgical Hx Reported Additional Past Surgical History / Comment(s): removal of breast, unk if CA Past Anesthesia/Blood Transfusion Reactions: No Reported Reaction Past Psychological History: No Psychological Hx Reported Smoking Status: Never smoker Past Alcohol Use History: None Reported Past Drug Use History: None Reported - Past Family History Mother Family Medical History: No Reported History General Exam - General Exam Comments Initial Comments: GENERAL: Patient is well-developed and well-nourished. Patient is nontoxic and well- hydrated and is in no acute distress. ENT: Neck is soft and supple. No significant lymphadenopathy is noted. Oropharynx is clear. Moist mucous membranes. Neck has full range of motion without eliciting any pain. EYES: The sclera were anicteric and conjunctiva were pink and moist. Extraocular movements were intact and pupils were equal round and reactive to light. Eyelids were unremarkable. PULMONARY: Unlabored respirations. Good breath sounds bilaterally. No audible rales rhonchi or wheezing was noted. CARDIOVASCULAR: There is a regular rate and rhythm without any murmurs gallops or rubs. ABDOMEN: Mild tenderness suprapubic region and epigastric region SKIN: Skin is clear with no lesions or rashes and otherwise unremarkable. NEUROLOGIC: Patient is alert and oriented x3. Cranial nerves II through XII are grossly intact. Motor and sensory are also intact. Normal speech, volume and content. Symmetrical smile. MUSCULOSKELETAL: Normal extremities with adequate strength and full range of motion. No calf tenderness. LYMPHATICS: No significant lymphadenopathy is noted PSYCHIATRIC: Unable to assess secondary to language. Limitations: no limitations Course Vital Signs 12/29/21 15:43 Temperature 98.5 F Pulse Rate 82 Respiratory 20 Rate Blood Pressure 139/81 O2 Sat by Pulse 98 Oximetry Medical Decision Making - Medical Decision Making EKG was interpreted by me. EKG shows sinus rhythm at 60 bpm RI interval 106 dresses 84 QT interval 375 QTC is 391. Patient's EKG shows no ST segment elevation or depression. Patient's urine showed quite a few bacteria. I gave the patient a gram of Rocephin IV. New. Patient was still having some myalgias psychiatric the patient some Toradol IV. Patient's blood sugar was elevated at 260 but she did not appear acidotic. - Lab Data Result diagrams: 12/29/21 17:25 12/29/21 17:25 Lab Results 12/29/21 12/29/21 12/29/21 Range/Units 17:25 17:25 17:25 WBC 8.1 (3.8-10.6) k/uL RBC 4.91 (3.80-5.40) m/uL Hgb 12.6 (11.4-16.0) gm/dL Hct 39.8 (34.0-46.0) % MCV 81.1 (80.0-100.0) fL MCH 25.7 (25.0-35.0) pg MCHC 31.7 (31.0-37.0) g/dL RDW 14.3 (11.5-15.5) % Plt Count 434 (150-450) k/uL MPV 7.5 Neutrophils % 50 % Lymphocytes % 42 % Monocytes % 3 % Eosinophils % 3 % Basophils % 0 % Neutrophils # 4.1 (1.3-7.7) k/uL Lymphocytes # 3.4 (1.0-4.8) k/uL Monocytes # 0.3 (0-1.0) k/uL Eosinophils # 0.2 (0-0.7) k/uL Basophils # 0.0 (0-0.2) k/uL Hypochromasia Slight Sodium 137 (137-145) mmol/L Potassium 4.6 (3.5-5.1) mmol/L Chloride 102 (98-107) mmol/L Carbon Dioxide 20 L (22-30) mmol/L Anion Gap 15 mmol/L BUN 10 (7-17) mg/dL Creatinine 0.66 (0.52-1.04) mg/dL Est GFR (CKD-EPI)AfAm >90 (>60 ml/min/1.73 sqM) Est GFR (CKD-EPI)NonAf >90 (>60 ml/min/1.73 sqM) Glucose 260 H (74-99) mg/dL Calcium 9.4 (8.4-10.2) mg/dL Magnesium 1.6 (1.6-2.3) mg/dL Total Bilirubin 0.3 (0.2-1.3) mg/dL AST 20 (14-36) U/L ALT 21 (4-34) U/L Alkaline Phosphatase 64 (38-126) U/L Total Protein 7.1 (6.3-8.2) g/dL Albumin 4.1 (3.5-5.0) g/dL Lipase 155 (23-300) U/L Urine Color Yellow Urine Appearance Clear (Clear) Urine pH 5.0 (5.0-8.0) Ur Specific [place] 1.013 (1.001-1.035) Urine Protein Negative (Negative) Urine Glucose (UA) Trace H (Negative) Urine Ketones Negative (Negative) Urine Blood Small H (Negative) Urine Nitrite Negative (Negative) Urine Bilirubin Negative (Negative) Urine Urobilinogen <2.0 (<2.0) mg/dL Ur Leukocyte Esterase Trace H (Negative) Urine RBC 3 (0-5) /hpf Urine WBC 11 H (0-5) /hpf Ur Squamous Epith Cells 2 (0-4) /hpf Amorphous Sediment Rare H (None) /hpf Urine Bacteria Many H (None) /hpf Hyaline Casts 5 H (0-2) /lpf Urine Mucus Rare H (None) /hpf Coronavirus (PCR) (Not Detectd) 12/29/21 Range/Units 17:25 WBC (3.8-10.6) k/uL RBC (3.80-5.40) m/uL Hgb (11.4-16.0) gm/dL Hct (34.0-46.0) % MCV (80.0-100.0) fL MCH (25.0-35.0) pg MCHC (31.0-37.0) g/dL RDW (11.5-15.5) % Plt Count (150-450) k/uL MPV Neutrophils % % Lymphocytes % % Monocytes % % Eosinophils % % Basophils % % Neutrophils # (1.3-7.7) k/uL Lymphocytes # (1.0-4.8) k/uL Monocytes # (0-1.0) k/uL Eosinophils # (0-0.7) k/uL Basophils # (0-0.2) k/uL Hypochromasia Sodium (137-145) mmol/L Potassium (3.5-5.1) mmol/L Chloride (98-107) mmol/L Carbon Dioxide (22-30) mmol/L Anion Gap mmol/L BUN (7-17) mg/dL Creatinine (0.52-1.04) mg/dL Est GFR (CKD-EPI)AfAm (>60 ml/min/1.73 sqM) Est GFR (CKD-EPI)NonAf (>60 ml/min/1.73 sqM) Glucose (74-99) mg/dL Calcium (8.4-10.2) mg/dL Magnesium (1.6-2.3) mg/dL Total Bilirubin (0.2-1.3) mg/dL AST (14-36) U/L ALT (4-34) U/L Alkaline Phosphatase (38-126) U/L Total Protein (6.3-8.2) g/dL Albumin (3.5-5.0) g/dL Lipase (23-300) U/L Urine Color Urine Appearance (Clear) Urine pH (5.0-8.0) Ur Specific [place] (1.001-1.035) Urine Protein (Negative) Urine Glucose (UA) (Negative) Urine Ketones (Negative) Urine Blood (Negative) Urine Nitrite (Negative) Urine Bilirubin (Negative) Urine Urobilinogen (<2.0) mg/dL Ur Leukocyte Esterase (Negative) Urine RBC (0-5) /hpf Urine WBC (0-5) /hpf Ur Squamous Epith Cells (0-4) /hpf Amorphous Sediment (None) /hpf Urine Bacteria (None) /hpf Hyaline Casts (0-2) /lpf Urine Mucus (None) /hpf Coronavirus (PCR) Not Detected (Not Detectd) Disposition Clinical Impression: Urinary tract infection, Hyperglycemia, Myalgia Disposition: HOME SELF-CARE Condition: Good Prescriptions: Nitrofurantoin Monohyd/M-Cryst [Macrobid] 100 mg PO Q12HR #14 cap Is patient prescribed a controlled substance at d/c from ED?: No Referrals: Luba Chance MD [Primary Care Provider] - 1-2 days Time of Disposition: 20:08
[2021-12-29 17:40] LABS: Basophils % (A) 0 %; Eosinophils # (A) 0.2 k/uL (0-0.7); Eosinophils % (A) 3 %; HCT 39.8 % (34.0-46.0); HGB 12.6 gm/dL (11.4-16.0); Hypochromasia Slight; Lymphocytes # (A) 3.4 k/uL (1.0-4.8); Lymphocytes % (A) 42 %; MCH 25.7 pg (25.0-35.0); MCHC 31.7 g/dL (31.0-37.0); MCV 81.1 fL (80.0-100.0); Mean Platelet Volume 7.5; Monocytes # (A) 0.3 k/uL (0-1.0); Monocytes % (A) 3 %; Neutrophils # (A) 4.1 k/uL (1.3-7.7); Neutrophils % (A) 50 %; Platelet Count 434 k/uL (150-450); RBC 4.91 m/uL (3.80-5.40); RDW 14.3 % (11.5-15.5); WBC 8.1 k/uL (3.8-10.6)
[2021-12-29 18:00] LABS: ALT 21 U/L (4-34); AST 20 U/L (14-36); African American GFR (CKD) >90 (>60 ml/min/1.73 sqM); Albumin 4.1 g/dL (3.5-5.0); Alkaline Phosphatase 64 U/L (38-126); Anion Gap 15 mmol/L; Blood Urea Nitrogen 10 mg/dL (7-17); Calcium 9.4 mg/dL (8.4-10.2); Carbon Dioxide 20 mmol/L (22-30); Chloride 102 mmol/L (98-107); Glucose 260 mg/dL (74-99); Lipase 155 U/L (23-300); Magnesium 1.6 mg/dL (1.6-2.3); Non-African American GFR(CKD) >90 (>60 ml/min/1.73 sqM); Potassium 4.6 mmol/L (3.5-5.1); Sodium 137 mmol/L (137-145); Total Bilirubin 0.3 mg/dL (0.2-1.3); Total Protein 7.1 g/dL (6.3-8.2)
--- NOTE | 2021-12-29 18:47 | XR ---
EXAMINATION TYPE: XR chest 2V DATE OF EXAM: 12/29/2021 6:01 PM COMPARISON: Chest radiographs from 12/26/2019 TECHNIQUE: XR chest 2V Frontal and lateral views of the chest. CLINICAL INDICATION:Female, 56 years old with history of Difficulty breathing ; FINDINGS: Lungs/Pleura: There is no evidence of pleural effusion, focal consolidation, or pneumothorax. Pulmonary vascularity: Unremarkable. Heart/mediastinum: Cardiomediastinal silhouette is unremarkable. Musculoskeletal: No acute osseous pathology. IMPRESSION: No acute cardiopulmonary disease/process.
[2021-12-29 19:38] LABS: Amorphous Sediment,Urine Rare /hpf; Appearance,Urine Clear (Clear); Bacteria,Urine Many /hpf; Bilirubin,Urine Negative (Negative); Blood,Urine Small (Negative); Color,Urine Yellow; Glucose,Urine (UA) Trace (Negative); Hyaline Casts,Urine 5 /lpf (0-2); Ketones,Urine Negative (Negative); Leukocyte Esterase,Urine Trace (Negative); Mucus,Urine Rare /hpf; Nitrite,Urine Negative (Negative); Protein,Urine Negative (Negative); RBC,Urine 3 /hpf (0-5); Specific Gravity,Urine 1.013 (1.001-1.035); Squamous Epithelial Cell,Urine 2 /hpf (0-4); Urobilinogen,Urine <2.0 mg/dL (<2.0); WBC,Urine 11 /hpf (0-5)
[2021-12-29] MEDS ORDERED: KETOROLAC 15 MG/ML 1 ML VIAL IVP STA (20:06)
[2021-12-29] MEDS ORDERED: cefTRIAXone IN SWFI 1,000 MG/10 ML SYRINGE IVP STA (20:06)
== END 2021-12-29 20:55 | disposition home or self-care (01) ==
LOC: EC 15:12
DX: N39.0 Urinary tract infection, site not specified (principal); E11.65 Type 2 diabetes mellitus with hyperglycemia; M79.10 Myalgia, unspecified site; K21.9 Gastro-esophageal reflux disease without esophagitis; E78.5 Hyperlipidemia, unspecified; I10 Essential (primary) hypertension; Z79.84 Long term (current) use of oral hypoglycemic drugs; Z79.899 Other long term (current) drug therapy; Z20.822 Contact with and (suspected) exposure to COVID-19
CPT/HCPCS: 36415; 93005; 80053; 83690; 83735; 85025; 81001; 87086; 87635; 71046; 99284; 96374; 96375; J0696; J1885

== ENCOUNTER → 2022-01-04 | Outpatient (CLI) | payer OTHER ==
--- NOTE | 2022-01-04 08:46 | CT ---
EXAMINATION TYPE: CT abdomen pelvis wo con DATE OF EXAM: 01/04/2022 HISTORY: abd pain generalized, bloating, abnormal urinalysis. CT DLP: 420.3 mGycm. Automated Exposure Control for Dose Reduction was Utilized. TECHNIQUE: CT scan of the abdomen and pelvis is performed without oral or IV contrast. COMPARISON: Most recent prior CT January 29, 2019 and older CTs FINDINGS: Within the limitations of a non-contrast study, the following observations are made. LUNG BASES: No significant abnormality is appreciated. LIVER/GB: No significant abnormality is appreciated. PANCREAS: No significant abnormality is seen. SPLEEN: No significant abnormality is seen. ADRENALS: No significant abnormality is seen. KIDNEYS: No renal stones or hydronephrosis seen bilaterally. No intraluminal calculi in poorly disten ded bladder. BOWEL: Suboptimal evaluation without enteric contrast. No suspicious small or large bowel dilatation. Normal appearing appendix from base of cecum. GENITAL ORGANS: Slightly retroflexed uterus. No suspicious adnexal masses. Single right-sided pelvic phlebolith redemonstrated. LYMPH NODES: No greater than 1cm abdominal or pelvic lymph nodes are appreciated. OSSEOUS STRUCTURES:. Facet arthropathy lower lumbar levels. OTHER: Mild to moderate calcified plaque of the aorta extends into branch vessels. IMPRESSION: No renal stones or hydronephrosis is seen bilaterally. No new ascites. No suspicious new or acute findings evident.
--- NOTE | 2022-01-05 16:31 | MM ---
Reason for Exam: Screening (asymptomatic). Last mammogram was performed 3 year(s) and 1 month(s) ago. Patient History: First Full-Term at age 20. Postmenopausal. Last menstrual period: Risk Values: Pooja 5 year model risk: 1.1%. NCI Lifetime model risk: 6.3%. Prior Study Comparison: 05/06/2011 Screening Mammogram, [facility]. 12/06/2018 Bilateral Diagnostic Mammogram, [facility]. Tissue Density: There are scattered fibroglandular densities. Findings: Analyzed By CAD. Scattered benign round coarse calcifications are present bilaterally. No significant interval change No suspicious groups of microcalcifications, spiculated or lobular masses, architectural distortion or other secondary signs of malignancy are mammographically apparent. Overall Assessment: Benign, BI-RAD 2 Management: Screening Mammogram of both breasts in 1 year. A negative mammogram report should not preclude additional follow up of suspicious palpable abnormalities. Patient should continue monthly self breast exam. A clinical breast exam by your physician is recommended on an annual basis and results should be correlated with mammographic findings. Electronically signed and approved by: Maxwell Mccullough D.O. Radiologis
== END | disposition home or self-care (01) ==
LOC: RADMAMWWP 07:16
PROVIDERS: ATTEND Family Medicine
DX: Z12.31 Encounter for screening mammogram for malignant neoplasm of breast (principal); R10.13 Epigastric pain; R82.90 Unspecified abnormal findings in urine; M54.9 Dorsalgia, unspecified; Z78.0 Asymptomatic menopausal state
CPT/HCPCS: 74176; 77067

== ENCOUNTER → 2022-02-05 | Outpatient (CLI) | payer OTHER ==
--- NOTE | 2022-02-05 15:37 | CT ---
EXAMINATION TYPE: CT urogram wo/w con CT DLP: 3563 mGycm, Automated exposure control for dose reduction was used. DATE OF EXAM: 02/05/2022 3:16 PM COMPARISON: CT abdomen pelvis most recent from 01/04/2022 CLINICAL INDICATION:Female, 56 years old with history of R31.21 ASYMPTOMATIC MICROSCOPIC HEMATURIA; P HH, Asymptomatic microscopic hematuria TECHNIQUE: Urogram of the abdomen and pelvis was performed before and after the uneventful administration of 100 cc of Isovue 370 intravenously. Delayed imaging was performed. Coronal and sagittal reformats were p erformed. One or more CT dose reduction strategies were utilized during this examination. 2D and 3D r econstructions are performed to assist visualization of the urinary tract on a separate workstation. FINDINGS: GENITOURINARY: RIGHT KIDNEY AND URETER: No calculi. No hydronephrosis or hydroureter. No renal mass or other lesions . No urothelial lesions: no filling defect, dilation, stricture or wall thickening. LEFT KIDNEY AND URETER: No calculi. No hydronephrosis or hydroureter. Left lower pole hypoattenuating 1.2 cm lesion with macroscopic fat (series 6, image 38). No ossification/calcification identified. T iny 3 mm left mid kidney cortical hypoattenuating focus which is too small to characterize but likely represents a cyst. No urothelial lesions: no filling defect, dilation, stricture or wall thickening. URINARY BLADDER: Not optimally distended. No gross evidence of calculi, mass or other lesions. REPRODUCTIVE: Unremarkable. ABDOMEN LIVER: Unremarkable. GALLBLADDER AND BILE DUCTS: Unremarkable PANCREAS: Unremarkable. SPLEEN: Unremarkable. ADRENAL GLANDS: Unremarkable. STOMACH AND BOWEL: Distal colonic diverticulosis without evidence for acute diverticulitis. The appen xiomara is within normal limits. No evidence of bowel obstruction. PERITONEUM: No evidence of pneumoperitoneum, free fluid, or adenopathy. VASCULATURE: Atherosclerotic calcifications are present throughout the abdominal aorta and its branch es. No abdominal aneurysm. MUSCULOSKELETAL: No acute osseous abnormalities. SOFT TISSUE/ABDOMINAL WALL: Small fat filled umbilical hernia. LOWER CHEST: No significant findings. IMPRESSION: 1. No evidence of urolithiasis. 2. 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 Renal cell carci noma is not entirely excluded. Follow-up examination in one year is recommended. Additional left mid kidney cortical 3 mm hypodense focus which is too small to characterize but likely represents a cyst. 3. Colonic diverticulosis without evidence for acute diverticulitis.
[2022-02-06 00:18] LABS: African American GFR (CKD) 99.9 (60.0-200.0); Anion Gap 14.6 mmol/L (10.00-18.00); BUN/Creat Ratio 13.39 Ratio (12.00-20.00); Blood Urea Nitrogen 10.2 mg/dL (9.0-27.0); Carbon Dioxide 21.8 mmol/L (20.0-27.5); Non-African American GFR(CKD) 86.2 (60.0-200.0); Potassium 4.7 mmol/L (3.5-5.5)
== END | disposition home or self-care (01) ==
LOC: RADCTMAIN 13:28
PROVIDERS: ATTEND Urology
DX: C64.9 Malignant neoplasm of unspecified kidney, except renal pelvis (principal); K57.30 Diverticulosis of large intestine without perforation or abscess without bleeding; N28.9 Disorder of kidney and ureter, unspecified; R31.21 Asymptomatic microscopic hematuria
CPT/HCPCS: 80048; 74178; 36415; 74400; Q9967

== ENCOUNTER 2022-08-04 15:45 | Emergency (ER) | payer OTHER ==
[2022-08-04 16:55] VITALS: RESP 18; TEMP 97.4
[2022-08-04 17:51] LABS: Appearance,Urine Cloudy (Clear); Bacteria,Urine Rare /hpf; Bilirubin,Urine Negative (Negative); Blood,Urine Moderate (Negative); Color,Urine Yellow; Glucose,Urine (UA) Negative (Negative); Ketones,Urine Negative (Negative); Leukocyte Esterase,Urine Large (Negative); Mucus,Urine Rare /hpf; Nitrite,Urine Negative (Negative); PH, Urine 5.5 (5.0-8.0); Protein,Urine Trace (Negative); RBC,Urine 3 /hpf (0-5); Specific Gravity,Urine 1.006 (1.001-1.035); Squamous Epithelial Cell,Urine <1 /hpf (0-4); Urobilinogen,Urine <2.0 mg/dL (<2.0); WBC,Urine 139 /hpf (0-5)
[2022-08-04] MEDS ORDERED: cefTRIAXone IN SWFI 1,000 MG/10 ML SYRINGE IVP STA (18:31)
[2022-08-04] MEDS ORDERED: KETOROLAC 15 MG/ML 1 ML VIAL IVP STA (18:34)
--- NOTE | 2022-08-04 18:34 | ED ---
Female Urogenital HPI - General Chief complaint: Urogenital Stated complaint: uti Time Seen by Provider: 08/04/22 18:23 Source: patient, family, RN notes reviewed, old records reviewed Mode of arrival: ambulatory Limitations: no limitations, language barrier (family at bedside translating) - History of Present Illness Initial comments: 57-year-old female presents with 3 days of dysuria and left flank pain. Denies any fevers. No nausea vomiting or diarrhea. No previous history of kidney stones. Does have a history of diabetes, hypertension and GERD. MD Complaint: dysuria -: days(s) (3) Radiation: L flank Severity scale (1-10): 10 Consistency: constant Improves with: none Patient : No - Related Data Home Medications Medication Instructions Recorded Confirmed Glimepiride [Amaryl] 2 mg PO BID 11/06/16 01/29/19 metFORMIN HCL [Glucophage] 500 mg PO TID 04/26/18 01/29/19 Loratadine [Claritin] 10 mg PO HS 06/01/18 01/29/19 Meloxicam 15 mg PO DAILY 06/01/18 01/29/19 Multivitamins, Thera [Multivitamin 1 tab PO DAILY 06/01/18 01/29/19 (formulary)] Omeprazole 20 mg PO BID PRN 06/01/18 01/29/19 amLODIPine [Norvasc] 10 mg PO DAILY 06/01/18 01/29/19 Atorvastatin [Lipitor] 20 mg PO DAILY 01/29/19 01/29/19 Butalb/APAP/Caff 50-325-40Mg 1 tab PO DAILY PRN 01/29/19 01/29/19 [Fioricet 50-325-40] Previous Rx's Medication Instructions Recorded Ibuprofen 800 mg PO Q6HR PRN #20 tablet 12/26/19 Orphenadrine [Norflex] 100 mg PO Q12H #7 tablet.er 12/26/19 Ibuprofen [Motrin] 600 mg PO Q8HR PRN #30 tab 05/26/20 Nitrofurantoin Monohyd/M-Cryst 100 mg PO Q12HR #14 cap 12/29/21 [Macrobid] Cephalexin [Keflex] 500 mg PO BID 7 Days #14 cap 08/04/22 Allergies Allergy/AdvReac Type Severity Reaction Status Date / Time No Known Allergies Allergy Verified 08/04/22 16:55 Review of Systems ROS Statement: Those systems with pertinent positive or pertinent negative responses have been documented in the HPI. ROS Other: All systems not noted in ROS Statement are negative. Past Medical History Past Medical History: Diabetes Mellitus, GERD/Reflux, Hyperlipidemia, Hypertension History of Any Multi-Drug Resistant Organisms: None Reported Past Surgical History: No Surgical Hx Reported Additional Past Surgical History / Comment(s): removal of breast, unk if CA Past Anesthesia/Blood Transfusion Reactions: No Reported Reaction Past Psychological History: No Psychological Hx Reported Smoking Status: Never smoker Past Alcohol Use History: None Reported Past Drug Use History: None Reported - Past Family History Mother Family Medical History: No Reported History General Exam Limitations: no limitations General appearance: alert, in no apparent distress Head exam: Present: atraumatic Eye exam: Absent: scleral icterus, conjunctival injection, periorbital swelling Neck exam: Present: full ROM. Absent: meningismus Respiratory exam: Present: normal lung sounds bilaterally. Absent: respiratory distress, accessory muscle use Cardiovascular Exam: Present: regular rate GI/Abdominal exam: Present: soft. Absent: distended, tenderness Extremities exam: Present: normal capillary refill. Absent: pedal edema Back exam: Present: CVA tenderness (L) Neurological exam: Present: alert Psychiatric exam: Present: normal affect, normal mood Skin exam: Present: warm, dry, normal color. Absent: cyanosis, diaphoretic Course Vital Signs 08/04/22 08/04/22 16:50 19:45 Temperature 97.4 F L Pulse Rate 71 68 Respiratory 18 Rate Blood Pressure 133/82 128/69 O2 Sat by Pulse 98 Oximetry Medical Decision Making - Medical Decision Making Was pt. sent in by a medical professional or institution (, PA, DEPENDENCY DIRECTOR, urgent care, hospital, or detention...) When possible be specific @ -No Did you speak to anyone other than the patient for history (EMS, parent, family, police, friend...)? What history was obtained from this source @ -Family member at bedside translating Did you review nursing and triage notes (agree or disagree)? Why? @ -I reviewed and agree with nursing and triage notes Were old charts reviewed (outside hosp., previous admission, EMS record, old EKG, old radiological studies, urgent care reports/EKG's, detention records)? Report findings @ -No old charts were reviewed Differential Diagnosis (chest pain, altered mental status, abdominal pain women, abdominal pain men, vaginal bleeding, weakness, fever, dyspnea, syncope, headache, dizziness, GI bleed, back pain, seizure, CVA, palpatations, mental health, musculoskeletal)? @ -UTI, kidney stone, pyelonephritis EKG interpreted by me (3pts min.). @ -n/a X-rays interpreted by me (1pt min.). @ -None done CT interpreted by me (1pt min.). @ -None done U/S interpreted by me (1pt. min.). @ -None done What testing was considered but not performed or refused? (CT, X-rays, U/S, labs)? Why? @ -None What meds were considered but not given or refused? Why? @ -None Did you discuss the management of the patient with other professionals (professionals i.e. , PA, DEPENDENCY DIRECTOR, lab, RT, psych nurse, social media intern, recreation activities coordinator, teacher, attendance officer, case packer and sealer)? Give summary @ -No Was smoking cessation discussed for >3mins.? @ -No Was critical care preformed (if so, how long)? @ -No Were there social determinants of health that impacted care today? How? (Homelessness, low income, unemployed, alcoholism, drug addiction, transportation, low edu. Level, literacy, decrease access to med. care, usp, re hab)? @ -No Was there de-escalation of care discussed even if they declined (Discuss DNR or withdrawal of care, Hospice)? DNR status @ -No What co-morbidities impacted this encounter? (DM, HTN, Smoking, COPD, CAD, Cancer, CVA, ARF, Chemo, Hep., AIDS, mental health diagnosis, sleep apnea, morbid obesity)? @ -History of diabetes, GERD, hyperlipidemia, hypertension Was patient admitted / discharged? Hospital course, mention meds given and route, prescriptions, significant lab abnormalities, going to OR and other pertinent info. @ -discharged 57-year-old female presents with 3 days of dysuria and left flank pain. Denies any fevers. No nausea vomiting or diarrhea. No previous history of kidney stones. UA positive for blood, leukocyte esterase, and bacteria. Labs show no evidence of leukocytosis. Electrolytes are unremarkable. She was given a gram of Rocephin in the emergency room. She'll be discharged home with a prescription for Keflex and directed to increase her fluid intake. Follow up with her primary care doctor next week for reevaluation. Patient and family are agreeable to this plan of care Case discussed with Dr. Fenton Undiagnosed new problem with uncertain prognosis? @ -No Drug Therapy requiring intensive monitoring for toxicity (Heparin, Nitro, Insulin, Cardizem)? @ -No Were any procedures done? @ -No Diagnosis/symptom? @ -UTI Acute, or Chronic, or Acute on Chronic? @ -Acute Uncomplicated (without systemic symptoms) or Complicated (systemic symptoms)? @ -Uncomplicated Side effects of treatment? @ -No Exacerbation, Progression, or Severe Exacerbation? @ -No Poses a threat to life or bodily function? How? (Chest pain, [place], [place], pneumonia, PE, COPD, DKA, ARF, appy, cholecystitis, CVA, Diverticulitis, Homicidal, Suicidal, threat to staff... and all critical care pts) @ -No - Lab Data Result diagrams: 08/04/22 18:46 08/04/22 18:46 Lab Results 08/04/22 08/04/22 08/04/22 Range/Units 16:54 18:46 18:46 WBC 10.4 (3.8-10.6) k/uL RBC 4.48 (3.80-5.40) m/uL Hgb 11.7 (11.4-16.0) gm/dL Hct 37.0 (34.0-46.0) % MCV 82.5 (80.0-100.0) fL MCH 26.1 (25.0-35.0) pg MCHC 31.6 (31.0-37.0) g/dL RDW 14.1 (11.5-15.5) % Plt Count 386 (150-450) k/uL MPV 7.2 Neutrophils % 55 % Lymphocytes % 37 % Monocytes % 4 % Eosinophils % 2 % Basophils % 0 % Neutrophils # 5.7 (1.3-7.7) k/uL Lymphocytes # 3.8 (1.0-4.8) k/uL Monocytes # 0.5 (0-1.0) k/uL Eosinophils # 0.2 (0-0.7) k/uL Basophils # 0.0 (0-0.2) k/uL Sodium 136 L (137-145) mmol/L Potassium 4.5 (3.5-5.1) mmol/L Chloride 104 (98-107) mmol/L Carbon Dioxide 24 (22-30) mmol/L Anion Gap 8 mmol/L BUN 8 (7-17) mg/dL Creatinine 0.74 (0.52-1.04) mg/dL Est GFR (CKD-EPI)AfAm >90 (>60 ml/min/1.73 sqM) Est GFR (CKD-EPI)NonAf 90 (>60 ml/min/1.73 sqM) Glucose 113 H (74-99) mg/dL Calcium 9.4 (8.4-10.2) mg/dL Total Bilirubin 0.3 (0.2-1.3) mg/dL AST 18 (14-36) U/L ALT 16 (4-34) U/L Alkaline Phosphatase 61 (38-126) U/L Total Protein 7.1 (6.3-8.2) g/dL Albumin 4.1 (3.5-5.0) g/dL Urine Color Yellow Urine Appearance Cloudy H (Clear) Urine pH 5.5 (5.0-8.0) Ur Specific [place] 1.006 (1.001-1.035) Urine Protein Trace H (Negative) Urine Glucose (UA) Negative (Negative) Urine Ketones Negative (Negative) Urine Blood Moderate H (Negative) Urine Nitrite Negative (Negative) Urine Bilirubin Negative (Negative) Urine Urobilinogen <2.0 (<2.0) mg/dL Ur Leukocyte Esterase Large H (Negative) Urine RBC 3 (0-5) /hpf Urine WBC 139 H (0-5) /hpf Urine WBC Clumps Many H (None) /hpf Ur Squamous Epith Cells <1 (0-4) /hpf Urine Bacteria Rare H (None) /hpf Urine Mucus Rare H (None) /hpf Disposition Clinical Impression: UTI (urinary tract infection) Disposition: HOME SELF-CARE Condition: Good Instructions (If sedation given, give patient instructions): Urinary Tract I nfection in Women (ED) Additional Instructions: Increase your fluid intake. Take antibiotics as prescribed starting morning 08/05/2022. Follow-up with your primary care doctor next week. Return to the emergency room with any new or concerning symptoms including fevers, back pain or persistent nausea vomiting. Prescriptions: Cephalexin [Keflex] 500 mg PO BID 7 Days #14 cap Is patient prescribed a controlled substance at d/c from ED?: No Referrals: Luba Chance MD [Primary Care Provider] - 1-2 days Time of Disposition: 19:35
[2022-08-04 19:02] LABS: Basophils % (A) 0 %; Eosinophils # (A) 0.2 k/uL (0-0.7); Eosinophils % (A) 2 %; HGB 11.7 gm/dL (11.4-16.0); Lymphocytes # (A) 3.8 k/uL (1.0-4.8); Lymphocytes % (A) 37 %; MCH 26.1 pg (25.0-35.0); MCHC 31.6 g/dL (31.0-37.0); MCV 82.5 fL (80.0-100.0); Mean Platelet Volume 7.2; Monocytes # (A) 0.5 k/uL (0-1.0); Monocytes % (A) 4 %; Neutrophils # (A) 5.7 k/uL (1.3-7.7); Neutrophils % (A) 55 %; Platelet Count 386 k/uL (150-450); RBC 4.48 m/uL (3.80-5.40); RDW 14.1 % (11.5-15.5); WBC 10.4 k/uL (3.8-10.6)
[2022-08-04 19:17] LABS: ALT 16 U/L (4-34); AST 18 U/L (14-36); African American GFR (CKD) >90 (>60 ml/min/1.73 sqM); Albumin 4.1 g/dL (3.5-5.0); Alkaline Phosphatase 61 U/L (38-126); Anion Gap 8 mmol/L; Blood Urea Nitrogen 8 mg/dL (7-17); Calcium 9.4 mg/dL (8.4-10.2); Carbon Dioxide 24 mmol/L (22-30); Chloride 104 mmol/L (98-107); Glucose 113 mg/dL (74-99); Non-African American GFR(CKD) 90 (>60 ml/min/1.73 sqM); Potassium 4.5 mmol/L (3.5-5.1); Sodium 136 mmol/L (137-145); Total Bilirubin 0.3 mg/dL (0.2-1.3); Total Protein 7.1 g/dL (6.3-8.2)
[2022-08-04 19:46] VITALS: BP 128/69; PULSE 68
== END 2022-08-04 19:51 | disposition home or self-care (01) ==
LOC: EC 15:45
DX: N39.0 Urinary tract infection, site not specified (principal); E11.9 Type 2 diabetes mellitus without complications; I10 Essential (primary) hypertension; E78.5 Hyperlipidemia, unspecified; Z79.899 Other long term (current) drug therapy
CPT/HCPCS: 36415; 80053; 85025; 81001; 87086; 99284; 96374; 96375; J0696; J1885; 99283

== ENCOUNTER → 2022-10-23 | Outpatient (CLI) | payer OTHER ==
--- NOTE | 2022-10-24 18:34 | MR ---
EXAMINATION TYPE: MR abdomen wo/w con DATE OF EXAM: 10/23/2022 10:30 AM INDICATION: Patient age:Female; 57 years old; Reason for study: D41.02 reji uncertain behavior L kidney. Reji uncertain behavior left kidney. COMPARISON: CT scan abdomen from 02/05/2022. TECHNIQUE: Multiplanar multi-sequence imaging was performed without contrast. Post contrast imaging was performed. Post IV contrast subtraction images were also submitted for review. IV Contrast: 7 cc Gadavist FINDINGS: LOWER CHEST: No gross irregularity. ABDOMEN Liver: No evidence for hepatic steatosis or cirrhosis. Gallbladder and Bile ducts: No evidence for ductal dilation, or biliary stricture or evidence of chol edocholithiasis. The gallbladder is within normal limits. Pancreas: No ductal dilation. No evidence for solid mass. Spleen: Normal for size. Adrenal glands: Unremarkable. Kidneys: Left lower pole 1.8 cm lesion which has increased from 1.2 cm on 02/05/2022. This lesion demo nstrates loss of signal on fat suppression sequences. Additional smaller lesion with similar characte ristics measuring 4 mm is present. There is some mild postcontrast enhancement. No evidence for obstr uctive uropathy. No No suspicious renal masses. No suspicious lesions. Stomach and Bowel: No evidence for bowel wall thickening or evidence for obstruction.. Peritoneum: No evidence of pneumoperitoneum or free fluid. Vasculature: No aortic aneurysm. Musculoskeletal: The osseous structures appear intact. Lymph Nodes: No gross evidence for lymphadenopathy. Abdominal wall: Unremarkable. IMPRESSION: 2 left renal lesions both which lose signal on fat suppression sequences and are most compatible with angiomyolipomas. The largest has increased in size measuring up to 1.8 mm, previously 1.2 cm on 02/05.
== END | disposition home or self-care (01) ==
LOC: RADMRIMAIN 09:40
PROVIDERS: ATTEND Urology
DX: D41.02 Neoplasm of uncertain behavior of left kidney (principal); N28.89 Other specified disorders of kidney and ureter
CPT/HCPCS: 74183; A9585

== ENCOUNTER → 2022-11-15 | Outpatient (CLI) | payer OTHER ==
[2022-11-15 23:01] LABS: BUN/Creat Ratio 12.57 Ratio (12.00-20.00); Blood Urea Nitrogen 8.8 mg/dL (9.0-27.0); Calcium 10.1 mg/dL (8.7-10.3); Carbon Dioxide 24.6 mmol/L (21.6-31.8); Chloride 104 mmol/L (96-109); Glucose 178 mg/dL (70-110); Potassium 4.8 mmol/L (3.5-5.5); Sodium 139 mmol/L (135-145)
== END | disposition home or self-care (01) ==
LOC: LABWHC1 15:39
PROVIDERS: ATTEND Urology
DX: D41.02 Neoplasm of uncertain behavior of left kidney (principal)
CPT/HCPCS: 36415; 80048

== ENCOUNTER 2023-01-11 16:18 | Emergency (ER) | payer OTHER ==
--- NOTE | 2023-01-11 16:38 | ED ---
Female Urogenital HPI - General Source: patient, RN notes reviewed Mode of arrival: ambulatory Limitations: no limitations <Cuauhtemoc Moore - Last Filed: 01/11/23 16:37> - General Source: patient, family, RN notes reviewed Limitations: no limitations <Yakov Grant - Last Filed: 01/11/23 18:50> - General Chief complaint: Urogenital Stated complaint: UTI Time Seen by Provider: 01/11/23 16:37 - History of Present Illness Initial comments: 57-year-old female presents emergency Department with chief complaint of dysuria. Patient states she's had urinary frequency of urination she states she would she saw some blood in urine she's had recurrent urinary tract infections. (Cuauhtemoc Moore) Patient is a pleasant 57-year-old female presenting to emergency Department with dysuria. Onset of symptoms was last day. Patient has had urinary frequency. Patient has dysuria and has had a little bit of blood. Patient does have history of similar symptoms previously associated with urinary tract infection. Patient has limited [place] and history is mostly provided by family member. Patient is able to provide some history. (Yakov Grant) - Related Data Home Medications Medication Instructions Recorded Confirmed Glimepiride [Amaryl] 2 mg PO BID 11/06/16 01/29/19 metFORMIN HCL [Glucophage] 500 mg PO TID 04/26/18 01/29/19 Loratadine [Claritin] 10 mg PO HS 06/01/18 01/29/19 Meloxicam 15 mg PO DAILY 06/01/18 01/29/19 Multivitamins, Thera [Multivitamin 1 tab PO DAILY 06/01/18 01/29/19 (formulary)] Omeprazole 20 mg PO BID PRN 06/01/18 01/29/19 amLODIPine [Norvasc] 10 mg PO DAILY 06/01/18 01/29/19 Atorvastatin [Lipitor] 20 mg PO DAILY 01/29/19 01/29/19 Butalb/APAP/Caff 50-325-40Mg 1 tab PO DAILY PRN 01/29/19 01/29/19 [Fioricet 50-325-40] Previous Rx's Medication Instructions Recorded Ibuprofen 800 mg PO Q6HR PRN #20 tablet 12/26/19 Orphenadrine [Norflex] 100 mg PO Q12H #7 tablet.er 12/26/19 Ibuprofen [Motrin] 600 mg PO Q8HR PRN #30 tab 05/26/20 Nitrofurantoin Monohyd/M-Cryst 100 mg PO Q12HR #14 cap 12/29/21 [Macrobid] Cephalexin [Keflex] 500 mg PO BID 7 Days #14 cap 08/04/22 Phenazopyridine [Pyridium] 200 mg PO TID #5 tablet 01/11/23 Sulfamethox-Tmp 800-160Mg [Bactrim 1 each PO Q12HR #20 tab 01/11/23 DS 800-160 mg] Allergies Allergy/AdvReac Type Severity Reaction Status Date / Time No Known Allergies Allergy Verified 01/11/23 16:35 Review of Systems ROS Other: All systems not noted in ROS Statement are negative. <Cuauhtemoc Moore - Last Filed: 01/11/23 16:37> ROS Other: All systems not noted in ROS Statement are negative. Constitutional: Denies: fever, chills Eyes: Denies: eye pain Gastrointestinal: Denies: vomiting Genitourinary: Reports: as per HPI, dysuria, frequency, hematuria <Yakov Grant - Last Filed: 01/11/23 18:50> ROS Statement: Those systems with pertinent positive or pertinent negative responses have been documented in the HPI. Past Medical History Past Medical History: Diabetes Mellitus, GERD/Reflux, Hyperlipidemia, Hypertension History of Any Multi-Drug Resistant Organisms: None Reported Past Surgical History: No Surgical Hx Reported Additional Past Surgical History / Comment(s): removal of breast, unk if CA Past Anesthesia/Blood Transfusion Reactions: No Reported Reaction Past Psychological History: No Psychological Hx Reported Smoking Status: Never smoker Past Alcohol Use History: None Reported Past Drug Use History: None Reported - Past Family History Mother Family Medical History: No Reported History <Cuauhtemoc Moore - Last Filed: 01/11/23 16:37> General Exam Limitations: no limitations <Cuauhtemoc Moore - Last Filed: 01/11/23 16:37> Limitations: no limitations General appearance: alert, in no apparent distress Head exam: Present: normocephalic Eye exam: Present: normal appearance Respiratory exam: Present: normal lung sounds bilaterally Cardiovascular Exam: Present: regular rate, normal rhythm Expanded Peripheral pulses: 2+: Dorsalis Pedis (R), Dorsalis Pedis (L) GI/Abdominal exam: Present: soft, tenderness (Minimal suprapubic tenderness to palpation). Absent: distended Extremities exam: Present: normal inspection. Absent: pedal edema, calf tenderness Neurological exam: Present: alert Psychiatric exam: Present: normal affect, normal mood Skin exam: Present: normal color <Yakov Grant - Last Filed: 01/11/23 18:50> - General Exam Comments Initial Comments: Visual Physical Exam Vital signs reviewed General: Well-appearing, nontoxic, no acute distress. Head: Normocephalic, atraumatic Eyes: PERRLA, EOMI ENT: Airway patent Chest: Nonlabored breathing Skin: No visual rash, normal skin tone Neuro: Alert and oriented 3 Musculoskeletal: No gross abnormalities (Cuauhtemoc Moore) Course Vital Signs 01/11/23 16:30 Temperature 96.8 F L Pulse Rate 77 Respiratory 18 Rate Blood Pressure 141/81 O2 Sat by Pulse 99 Oximetry Medical Decision Making <Cuauhtemoc Moore - Last Filed: 01/11/23 16:37> <Yakov Grant - Last Filed: 01/11/23 18:50> - Medical Decision Making I completed the quick note portion of this chart signed Cuauhtemoc Moore PA-C (Cuauhtemoc Moore) Was pt. sent in by a medical professional or institution (ANDRES Feliciano, TEXTILE TECHNICAL OFFICER, urgent care, hospital, or [facility]...) When possible be specific @ -No Did you speak to anyone other than the patient for history (EMS, parent, family, police, friend...)? What history was obtained from this source @ -Family is present and helps provide history as patient's [place] is somewhat poor. Did you review nursing and triage notes (agree or disagree)? Why? @ -I reviewed and agree with nursing and triage notes Were old charts reviewed (outside hosp., previous admission, EMS record, old EKG, old radiological studies, urgent care reports/EKG's, [facility] records)? Report findings @ -No old charts were reviewed Differential Diagnosis (chest pain, altered mental status, abdominal pain women, abdominal pain men, vaginal bleeding, weakness, fever, dyspnea, syncope, headache, dizziness, GI bleed, back pain, seizure, CVA, palpatations, mental health, musculoskeletal)? @ -Differential Abdominal Pain Women: Appendicitis, Cholecystitis, diverticulosis, ischemic bowel, pancreatitis, hepatitis, UTI, gastroenteritis, AAA, incarcerated hernia, bowel obstruction, constipation, inflammatory bowel, hepatitis, peptic ulcer disease, splenic infarction, perforated viscus, vulvitis, ovarian torsion, PID, kidney stone, placenta abruption, this is not meant to be an all-inclusive list EKG interpreted by me (3pts min.). @ -As above X-rays interpreted by me (1pt min.). @ -None done CT interpreted by me (1pt min.). @ -None done U/S interpreted by me (1pt. min.). @ -None done What testing was considered but not performed or refused? (CT, X-rays, U/S, labs)? Why? @ -None What meds were considered but not given or refused? Why? @ -None Did you discuss the management of the patient with other professionals (professionals i.e. , PA, TEXTILE TECHNICAL OFFICER, lab, RT, psych nurse, social work associate, synthetic soil blocks pulper, teacher, penal officer, registered nurse hh case manager)? Give summary @ -No Was smoking cessation discussed for >3mins.? @ -No Was critical care preformed (if so, how long)? @ -No Were there social determinants of health that impacted care today? How? (Homele ssness, low income, unemployed, alcoholism, drug addiction, transportation, low edu. Level, literacy, decrease access to med. care, halfway, rehab)? @ -No Was there de-escalation of care discussed even if they declined (Discuss DNR or withdrawal of care, Hospice)? DNR status @ -No What co-morbidities impacted this encounter? (DM, HTN, Smoking, COPD, CAD, Cancer, CVA, ARF, Chemo, Hep., AIDS, mental health diagnosis, sleep apnea, morbid obesity)? @ -None Was patient admitted / discharged? Hospital course, mention meds given and route, prescriptions, significant lab abnormalities, going to OR and other pertinent info. @ -Patient reevaluated her patient and family updated. Both are comfortable with discharge home with prescription for antibiotics. Undiagnosed new problem with uncertain prognosis? @ -No Drug Therapy requiring intensive monitoring for toxicity (Heparin, Nitro, Insulin, Cardizem)? @ -No Were any procedures done? @ -No Diagnosis/symptom? @ -Urinary tract infection Acute, or Chronic, or Acute on Chronic? @ -Acute Uncomplicated (without systemic symptoms) or Complicated (systemic symptoms)? @ -default Side effects of treatment? @ -No Exacerbation, Progression, or Severe Exacerbation? @ -No Poses a threat to life or bodily function? How? (Chest pain, [place], [place], pneumonia, PE, COPD, DKA, ARF, appy, cholecystitis, CVA, Diverticulitis, Homicidal, Suicidal, threat to staff... and all critical care pts) @ -No (Yakov Grant) - Lab Data Lab Results 01/11/23 Range/Units 16:55 Urine Color Colorless Urine Appearance Cloudy H (Clear) Urine pH 5.5 (5.0-8.0) Ur Specific [place] 1.005 (1.001-1.035) Urine Protein 1+ H (Negative) Urine Glucose (UA) Negative (Negative) Urine Ketones Negative (Negative) Urine Blood Large H (Negative) Urine Nitrite Negative (Negative) Urine Bilirubin Negative (Negative) Urine Urobilinogen <2.0 (<2.0) mg/dL Ur Leukocyte Esterase Large H (Negative) Urine RBC 20 H (0-5) /hpf Urine WBC 140 H (0-5) /hpf Urine WBC Clumps Many H (None) /hpf Urine Bacteria Rare H (None) /hpf Disposition <Cuauhtemoc Moore - Last Filed: 01/11/23 16:37> Is patient prescribed a controlled substance at d/c from ED?: No Time of Disposition: 18:49 <Yakov Grant - Last Filed: 01/11/23 18:50> Clinical Impression: Urinary tract infection Disposition: HOME SELF-CARE Condition: Stable Instructions (If sedation given, give patient instructions): Urinary Tract Infection in Women (ED) Additional Instructions: Please do follow-up with primary care physician in the next day or 2 for recheck. Return for fever, vomiting, increased pain, worsening symptoms or any other concerns. Prescription has been sent to pharmacy. Prescriptions: Sulfamethox-Tmp 800-160Mg [Bactrim DS 800-160 mg] 1 each PO Q12HR #20 tab Phenazopyridine [Pyridium] 200 mg PO TID #5 tablet Referrals: Weston Greene MD [STAFF PHYSICIAN] - 1-2 days
[2023-01-11 16:57] VITALS: BP 141/81; PULSE 77; RESP 18; TEMP 96.8
[2023-01-11 17:18] LABS: Appearance,Urine Cloudy (Clear); Bacteria,Urine Rare /hpf; Bilirubin,Urine Negative (Negative); Blood,Urine Large (Negative); Color,Urine Colorless; Glucose,Urine (UA) Negative (Negative); Ketones,Urine Negative (Negative); Leukocyte Esterase,Urine Large (Negative); Nitrite,Urine Negative (Negative); PH, Urine 5.5 (5.0-8.0); Protein,Urine 1+ (Negative); RBC,Urine 20 /hpf (0-5); Specific Gravity,Urine 1.005 (1.001-1.035); Urobilinogen,Urine <2.0 mg/dL (<2.0); WBC,Urine 140 /hpf (0-5)
[2023-01-11] MEDS ORDERED: PHENAZOPYRIDINE 200 MG TAB PO STA (18:21)
[2023-01-11] MEDS ORDERED: SULFAMETHOX-TMP 800-160MG 1 EACH TAB PO STA (18:21)
== END 2023-01-11 19:09 | disposition home or self-care (01) ==
LOC: EC 16:18
DX: N39.0 Urinary tract infection, site not specified (principal); E11.9 Type 2 diabetes mellitus without complications; E78.5 Hyperlipidemia, unspecified; I10 Essential (primary) hypertension; K21.9 Gastro-esophageal reflux disease without esophagitis; Z79.899 Other long term (current) drug therapy; Z79.84 Long term (current) use of oral hypoglycemic drugs
CPT/HCPCS: 81001; 87086; 99283

== ENCOUNTER → 2023-10-19 | Outpatient (CLI) | payer OTHER ==
--- NOTE | 2023-11-16 15:10 | US ---
Patient: Yenny Vizcaino Ordering Physician: Unknown, Unknown ID: [id number] Phone, Pager: Phone: N/ A Pager: N/A : [phone] Age/Gender: 58Y, F Primary Location: N/A Procedure: US abdomen complete [facility] Date: 10/19/2023 10:45:00 AM Order #: N/[id number] EXAMINATION TYPE: US abdomen complete DATE OF EXAM: 10/19/2023 COMPARISON: NONE CLINICAL INDICATION: Unknown, old with history of ; TECHNIQUE: Multiple sonographic images of the abdomen are obtained. FINDINGS: Chronic nausea, *pt did not speak any Romansh, exam slightly limited Pancreas appears wnl liver is heterogeneous GB is wnl CBD measuring 0.31cm wnl Rt kidney measuring 10.4 x 5.1 x 4.3cm wnl Lt kidney measuring 10.8 x 4.9 x 4.4cm wnl Spleen measuring 7.6cm wnl The intrahepatic portion of the IVC and proximal abdominal aorta are within normal limits. There is no evidence of cholelithiasis. Common bile duct is unremarkable. The visualized portions of the perdomo creas are homogenous. The spleen is unremarkable. Kidneys are symmetric and free of hydronephrosis. No renal lesions are seen. IMPRESSION: Hepatic steatosis.
== END | disposition home or self-care (01) ==
LOC: RADUSWWP 18:57
PROVIDERS: ATTEND Family Medicine
DX: K76.0 Fatty (change of) liver, not elsewhere classified (principal); R11.0 Nausea
CPT/HCPCS: 76700

== ENCOUNTER → 2023-12-14 | Outpatient (CLI) | payer OTHER ==
--- NOTE | 2023-12-14 15:12 | XR ---
EXAMINATION TYPE: XR chest 2V DATE OF EXAM: 12/14/2023 3:06 PM CLINICAL INDICATION: Female, 58 years old with history of R05.9 COUGH, UNSPECIFIED; [facility] COMPARISON: Chest radiographs from 12/29/2021 TECHNIQUE: XR chest 2V Frontal view of the chest. FINDINGS: Lungs/Pleura: There is no evidence of pleural effusion, focal consolidation, or pneumothorax. Pulmonary vascularity: Unremarkable. Heart/mediastinum: Cardiomediastinal silhouette is unremarkable. Musculoskeletal: No acute osseous pathology. IMPRESSION: No acute cardiopulmonary disease/process. [facility], , 12/14/2023 3:10 PM
== END | disposition home or self-care (01) ==
LOC: RADXRMAIN 14:52
PROVIDERS: ATTEND Family Medicine
DX: R05.9 Cough, unspecified (principal)
CPT/HCPCS: 71046

== ENCOUNTER → 2024-03-01 | Outpatient (CLI) | payer OTHER ==
--- NOTE | 2024-03-01 16:24 | US ---
EXAMINATION TYPE: US kidneys/renal and bladder DATE OF EXAM: 03/01/2024 COMPARISON: Abdominal ultrasound 11/09/2023, 10/16/2021, MR abdomen 10/23/2022, CT urogram 02/05/2022, CT abdomen pelvis 01/04/2022 CLINICAL INDICATION: Female, 58 years old with history of D3002 BENIGN ANGI L KIDNEY; TECHNIQUE: Grayscale imaging of the bilateral kidneys and urinary bladder: FINDINGS: EXAM MEASUREMENTS: Right Kidney: 10.2 x 5.1 x 5.3 cm Left Kidney: 12.5 x 4.9 x 4.7 cm Post Void Residual Volume: NA mL Right Kidney: wnl, no evidence for hydronephrosis, mass or renal calculus. Left Kidney: Echogenic area seen lower pole = 3.6 x 2.6 x 2.8 cm Bladder: WNL Bilateral Jets seen: Yes Normal Post Void Residual: NA There is no evidence for hydronephrosis at this point in time. No right renal mass. Corticomedullary differentiation is maintained bilaterally. Echogenic lesion within the lower pole of the left kidney measuring up to 3.6 cm redemonstrated. Previously measured up to 1.7 cm in prior MRI. The urinary isha dder is anechoic. IMPRESSION: 1. Increased size of left lower pole echogenic 3.6 cm lesion, previously 1.7 cm on prior MR 3. Previously characterized as an angiomyolipoma. Continued surveillance is recommended. 2. No hydronephrosis or nephrolithiasis. [facility], , 03/01/2024 4:21 PM
== END | disposition home or self-care (01) ==
LOC: RADUSWWP 15:52
PROVIDERS: ATTEND Urology
DX: D30.02 Benign neoplasm of left kidney (principal)
CPT/HCPCS: 76770

== ENCOUNTER → 2024-03-05 | Outpatient (CLI) | payer OTHER ==
--- NOTE | 2024-03-05 09:14 | US ---
EXAMINATION TYPE: US abdomen comp/pelvis limited DATE OF EXAM: 03/05/2024 COMPARISON: Kidneys/bladder 03/01/[address] 02/05/2022 CLINICAL INDICATION: Female, 58 years old with history of Z85.3 PERSONAL HISTORY OF BREAST CANCER; re current UTIs TECHNIQUE: Grayscale color Doppler imaging of the abdomen and pelvis. FINDINGS: EXAM MEASUREMENTS: Liver Length: 15.1 cm Gallbladder Wall: 0.1 cm CBD: 0.4 cm Spleen: 6.8 cm Right Kidney: 9.3x4.1x5.2 cm Left Kidney: 10.8x4.8x5.5 cm Hand Potter notes: exam limited by bowel gas, body habitus, and patient inability to take deep withh eld inspiration Pancreas: tail obscured by bowel gas Liver: size at upper limits Gallbladder: wnl CBD: wnl Spleen: wnl Right Kidney: No hydronephrosis or masses seen Left Kidney: Heterogeneous, echogenic lower pole mass again seen measuring 2.7x2.5x2.4cm Upper IVC: wnl Abd Aorta: wnl Bladder: wnl Bilateral Jets Seen Yes IMPRESSION: 1. Left lower pole renal mass favored to represent an AML which would be benign. However, we note a s ize increase now 2.7 cm versus 1.2 cm on 02/05/2022. RCC considered less likely. Recommend urology ref erral for appropriate surveillance or subsequent management. 2. No gallstones or biliary ductal dilatation. [facility], Workstation: [id number]EREMIAH, 03/05/2024 9:12 AM
== END | disposition home or self-care (01) ==
LOC: RADUSWWP 08:08
PROVIDERS: ATTEND Family Medicine
DX: R39.9 Unspecified symptoms and signs involving the genitourinary system (principal); N28.89 Other specified disorders of kidney and ureter; Z87.440 Personal history of urinary (tract) infections; C92.00 Acute myeloblastic leukemia, not having achieved remission; Z85.3 Personal history of malignant neoplasm of breast
CPT/HCPCS: 76700; 76857

== ENCOUNTER 2024-06-20 15:27 | Emergency (ER) | payer OTHER ==
[2024-06-20 16:53] LABS: Appearance,Urine Clear (Clear); Bilirubin,Urine Negative (Negative); Blood,Urine Moderate (Negative); Color,Urine Light Yellow; Glucose,Urine (UA) Negative (Negative); Ketones,Urine Negative (Negative); Leukocyte Esterase,Urine Negative (Negative); Mucus,Urine Rare /hpf; Nitrite,Urine Negative (Negative); Protein,Urine Negative (Negative); RBC,Urine 13 /hpf (0-5); Specific Gravity,Urine 1.018 (1.001-1.035); Urobilinogen,Urine <2.0 mg/dL (<2.0); WBC,Urine <1 /hpf (0-5)
[2024-06-20] MEDS: KETOROLAC 15 MG/ML 1 ML VIAL IVP STA (17:40)
[2024-06-20 18:27] LABS: Basophils # (A) 0.04 10*3/uL (0.00-0.10); Basophils % (A) 0.6 %; Eosinophils # (A) 0.62 10*3/uL (0.04-0.35); Eosinophils % (A) 9.7 %; HCT 36.2 % (37.2-46.3); HGB 12.3 g/dL (12.0-15.0); Lymphocytes # (A) 2.86 10*3/uL (0.90-5.00); Lymphocytes % (A) 44.8 %; MCH 26.5 pg (27.0-32.0); MCV 77.8 fL (80.0-97.0); Monocytes # (A) 0.47 10*3/uL (0.20-1.00); Monocytes % (A) 7.4 %; Neutrophils % (A) 37.5 %; Platelet Count 389 10*3/uL (140-440); RBC 4.65 10*6/uL (4.10-5.20); RDW 15.8 % (11.5-14.5); WBC 6.39 10*3/uL (4.50-10.00)
[2024-06-20 18:43] LABS: ALT 17 U/L (4-34); AST 21 U/L (14-36); African American GFR (CKD) >90 (>60 ml/min/1.73 sqM); Albumin 4.2 g/dL (3.5-5.0); Alkaline Phosphatase 73 U/L (38-126); Anion Gap 9 mmol/L; Blood Urea Nitrogen 13 mg/dL (7-17); Calcium 9.7 mg/dL (8.4-10.2); Carbon Dioxide 26 mmol/L (22-30); Chloride 103 mmol/L (98-107); Glucose 144 mg/dL (74-99); Non-African American GFR(CKD) >90 (>60 ml/min/1.73 sqM); Potassium 4.7 mmol/L (3.5-5.1); Sodium 138 mmol/L (137-145); Total Bilirubin 0.5 mg/dL (0.2-1.3); Total Protein 7.4 g/dL (6.3-8.2)
--- NOTE | 2024-06-20 19:13 | CT ---
EXAMINATION TYPE: CT abdomen pelvis wo con DATE OF EXAM: 06/20/2024 6:36 PM COMPARISON: CT abdomen pelvis most recent from 02/05/2022 CLINICAL INDICATION: Female, 59 years old with history of L flank pain; left flank pain TECHNIQUE: Axial CT abdomen pelvis wo con;Sagittal and coronal reformats were created on a separate workstation. Contrast used: mL of , (none if empty) Oral contrast used: without Oral Contrast (none if empty) CT DLP: 608.8 mGycm, Automated exposure control for dose reduction was used. FINDINGS: LOWER CHEST: Unremarkable ABDOMEN LIVER: Unremarkable GALLBLADDER AND BILE DUCTS: Unremarkable. PANCREAS: Unremarkable. SPLEEN: Unremarkable. ADRENAL GLANDS: Unremarkable. KIDNEYS AND URETERS: No evidence of hydronephrosis or obstructing renal calculus. The ureters are unr emarkable. Tiny fat-containing lesion in the left kidney compatible with angiomyolipoma measuring 7 mm as well as one more inferiorly measuring up to 32 x 25 mm. Previously this smaller was 3 mm and the larger was 12 mm on 02/05/2022. PELVIS BLADDER: Incompletely distended but grossly unremarkable. REPRODUCTIVE: Retroverted uterus. ABDOMEN & PELVIS STOMACH AND BOWEL: No evidence of bowel obstruction. Scattered colonic diverticula. The appendix is n ormal. PERITONEUM/RETROPERITONEUM: No evidence of pneumoperitoneum or free fluid. VASCULATURE: No evidence of aortic aneurysm. MUSCULOSKELETAL: No acute osseous abnormalities LYMPH NODES: No gross evidence for lymphadenopathy. Stable lymph node next the vagina series 201 imag e 127 on the right measuring 5 mm in short axis. SOFT TISSUE/ABDOMINAL WALL: Tiny fat-containing umbilical hernia. IMPRESSION: 1. No evidence for acute abdominal process to explain the patient's pain. No evidence for obstructiv e uropathy or renal calculus. 2. Colonic diverticulosis without evidence for acute inflammation. 3. Enlarging left renal angiomyolipomas , 32 mm previously 12 mm on 02/05/2022 and 7 mm previously 3 mm on 02/05/2022. 4. Nondistended urinary bladder thickened wall appearance correlate with urinalysis for cystitis. 5. Fat-containing umbilical hernia. [facility], , 06/20/2024 7:10 PM
--- NOTE | 2024-06-20 20:00 | ED ---
Female Urogenital HPI - General Chief complaint: Urogenital Stated complaint: blood in urine Time Seen by Provider: 06/20/24 16:26 Source: patient Mode of arrival: ambulatory Limitations: no limitations - History of Present Illness Initial comments: 59-year-old female presenting with chief complaint of blood in her urine. Patient is accompanied by her . Patient is also having left flank pain. No nausea or vomiting. No fever. She does admit to burning with urination. No diarrhea. No blood in her stool. No blood thinners. Pain started about 24 hours ago. Pain radiates into the lower abdomen. - Related Data Home Medications Medication Instructions Recorded Confirmed Glimepiride [Amaryl] 2 mg PO BID 11/06/16 01/29/19 metFORMIN HCL [Glucophage] 500 mg PO TID 04/26/18 01/29/19 Loratadine [Claritin] 10 mg PO HS 06/01/18 01/29/19 Meloxicam 15 mg PO DAILY 06/01/18 01/29/19 Multivitamins, Thera [Multivitamin 1 tab PO DAILY 06/01/18 01/29/19 (formulary)] Omeprazole 20 mg PO BID PRN 06/01/18 01/29/19 amLODIPine [Norvasc] 10 mg PO DAILY 06/01/18 01/29/19 Atorvastatin [Lipitor] 20 mg PO DAILY 01/29/19 01/29/19 Butalb/APAP/Caff 50-325-40Mg 1 tab PO DAILY PRN 01/29/19 01/29/19 [Fioricet 50-325-40] Previous Rx's Medication Instructions Recorded Ibuprofen 800 mg PO Q6HR PRN #20 tablet 12/26/19 Orphenadrine [Norflex] 100 mg PO Q12H #7 tablet.er 12/26/19 Ibuprofen [Motrin] 600 mg PO Q8HR PRN #30 tab 05/26/20 Nitrofurantoin Monohyd/M-Cryst 100 mg PO Q12HR #14 cap 12/29/21 [Macrobid] Cephalexin [Keflex] 500 mg PO BID 7 Days #14 cap 08/04/22 Phenazopyridine [Pyridium] 200 mg PO TID #5 tablet 01/11/23 Sulfamethox-Tmp 800-160Mg [Bactrim 1 each PO Q12HR #20 tab 01/11/23 DS 800-160 mg] Cephalexin [Keflex] 500 mg PO Q12HR 7 Days #14 cap 06/20/24 Allergies Allergy/AdvReac Type Severity Reaction Status Date / Time No Known Allergies Allergy Verified 01/11/23 16:35 Review of Systems ROS Statement: Those systems with pertinent positive or pertinent negative responses have been documented in the HPI. ROS Other: All systems not noted in ROS Statement are negative. Past Medical History Past Medical History: Diabetes Mellitus, GERD/Reflux, Hyperlipidemia, Hyperten anne History of Any Multi-Drug Resistant Organisms: None Reported Past Surgical History: No Surgical Hx Reported Additional Past Surgical History / Comment(s): removal of breast, unk if CA Past Anesthesia/Blood Transfusion Reactions: No Reported Reaction Past Psychological History: No Psychological Hx Reported Smoking Status: Never smoker Past Alcohol Use History: None Reported Past Drug Use History: None Reported - Past Family History Mother Family Medical History: No Reported History General Exam Limitations: no limitations General appearance: alert, in no apparent distress Head exam: Present: atraumatic, normocephalic, normal inspection Eye exam: Present: normal appearance, EOMI Neck exam: Present: normal inspection. Absent: meningismus Respiratory exam: Present: normal lung sounds bilaterally. Absent: respiratory distress, wheezes, rales, rhonchi, stridor Cardiovascular Exam: Present: regular rate, normal rhythm, normal heart sounds. Absent: systolic murmur, diastolic murmur, rubs, gallop, clicks GI/Abdominal exam: Absent: distended Neurological exam: Present: alert, oriented X3 Psychiatric exam: Present: normal affect, normal mood Skin exam: Present: warm, dry, normal color Course Vital Signs 06/20/24 06/20/24 06/20/24 15:45 17:38 18:55 Temperature 97.8 F 97.9 F 97.6 F Pulse Rate 95 70 68 Respiratory 18 18 14 Rate Blood Pressure 141/80 125/76 142/74 O2 Sat by Pulse 96 97 98 Oximetry 06/20/24 20:20 Temperature 98.1 F Pulse Rate 83 Respiratory 18 Rate Blood Pressure 156/80 O2 Sat by Pulse 96 Oximetry Medical Decision Making - Medical Decision Making Was pt. sent in by a medical professional or institution (, PA, ASSISTANT PROFESSOR OF BIOCHEMISTRY, urgent care, hospital, or assisted...) When possible be specific @ -No Did you speak to anyone other than the patient for history (EMS, parent, family, police, friend...)? What history was obtained from this source @ - Did you review nursing and triage notes (agree or disagree)? Why? @ -I reviewed and agree with nursing and triage notes Were old charts reviewed (outside hosp., previous admission, EMS record, old EKG, old radiological studies, urgent care reports/EKG's, assisted records)? Report findings @ -No old charts were reviewed Differential Diagnosis (chest pain, altered mental status, abdominal pain women, abdominal pain men, vaginal bleeding, weakness, fever, dyspnea, syncope, headache, dizziness, GI bleed, back pain, seizure, CVA, palpatations, mental health, musculoskeletal)? @ -Differential includes kidney stone, UTI, pyelonephritis, malignancy, not an all-inclusive list EKG interpreted by me (3pts min.). @ -As above X-rays interpreted by me (1pt min.). @ -None done CT interpreted by me (1pt min.). @ -CT shows no evidence for acute abdominal process to explain the patient's pain. No evidence for obstructive uropathy or renal calculus. Colonic diverticulosis without evidence for acute inflammation. 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 Nondistended urinary bladder thickened wall appearance correlate for cystitis. Fat-containing umbilical hernia U/S interpreted by me (1pt. min.). @ -None done What testing was considered but not performed or refused? (CT, X-rays, U/S, labs)? Why? @ -None What meds were considered but not given or refused? Why? @ -None Did you discuss the management of the patient with other professionals (professionals i.e. Dr., PA, ASSISTANT PROFESSOR OF BIOCHEMISTRY, lab, RT, psych nurse, social work associate, sales representative uniforms, teacher, facility security officer, bilingual patient support caseworker)? Give summary @ -No Was smoking cessation discussed for >3mins.? @ -No Was critical care preformed (if so, how long)? @ -No Were there social determinants of health that impacted care today? How? (Homelessness, low income, unemployed, alcoholism, drug addiction, transpo rtation, low edu. Level, literacy, decrease access to med. care, residential, rehab)? @ -No Was there de-escalation of care discussed even if they declined (Discuss DNR or withdrawal of care, Hospice)? DNR status @ -No What co-morbidities impacted this encounter? (DM, HTN, Smoking, COPD, CAD, Cancer, CVA, ARF, Chemo, Hep., AIDS, mental health diagnosis, sleep apnea, morbid obesity)? @ -None Was patient admitted / discharged? Hospital course, mention meds given and route, prescriptions, significant lab abnormalities, going to OR and other pertinent info. @ -59-year-old female presenting with chief complaint of hematuria and left flank pain started 24 hours ago. Workup was initiated by triage. Patient is later placed in a room and evaluated by myself. Lab work shows no leukocytosis or anemia. Urine shows moderate blood with [address] does show thickening of the urinary bladder. No obstructive uropathy or hydronephrosis. Possible that this pain may be due to a recently passed stone. Given possible cystitis patient was started on Keflex. Patient is educated on all of today's findings including CT findings. She is instructed to follow-up with PCP and urology. Follow-up with PCP. Report back to ER with any new or worsening symptoms. Discussed return parameters and answered all questions. Patient conveyed verbal understanding and agreed to the plan. I discussed this case in detail with my attending Dr. Solomon Undiagnosed new problem with uncertain prognosis? @ -No Drug Therapy requiring intensive monitoring for toxicity (Heparin, Nitro, Insulin, Cardizem)? @ -No Were any procedures done? @ -No Diagnosis/symptom? @ -Hematuria Acute, or Chronic, or Acute on Chronic? @ -Acute Uncomplicated (without systemic symptoms) or Complicated (systemic symptoms)? @ -Uncomplicated Side effects of treatment? @ -No Exacerbation, Progression, or Severe Exacerbation? @ -No Poses a threat to life or bodily function? How? (Chest pain, USA, SD, pneumonia, PE, COPD, DKA, ARF, appy, cholecystitis, CVA, Diverticulitis, Homicidal, Suicidal, threat to staff... and all critical care pts) @ -Possibly cannot rule out malignancy - Lab Data Result diagrams: 06/20/24 17:37 06/20/24 17:37 Lab Results 06/20/24 06/20/24 06/20/24 Range/Units 16:20 17:37 17:37 WBC 6.39 (4.50-10.00) 10*3/uL RBC 4.65 (4.10-5.20) 10*6/uL Hgb 12.3 (12.0-15.0) g/dL Hct 36.2 L (37.2-46.3) % MCV 77.8 L (80.0-97.0) fL MCH 26.5 L (27.0-32.0) pg MCHC 34.0 (32.0-37.0) g/dL Plt Count 389 (140-440) 10*3/uL MPV 10.0 (9.5-12.2) fL Immature Gran % (Auto) 0 % Neutrophils % 37.5 % Lymphocytes % 44.8 % Monocytes % 7.4 % Eosinophils % 9.7 % Basophils % 0.6 % Immature Gran # 0.00 (0.00-0.04) 10*3/uL Neutrophils # 2.40 (1.80-7.70) 10*3/uL Lymphocytes # 2.86 (0.90-5.00) 10*3/uL Monocytes # 0.47 (0.20-1.00) 10*3/uL Eosinophils # 0.62 H (0.04-0.35) 10*3/uL Basophils # 0.04 (0.00-0.10) 10*3/uL Sodium 138 (137-145) mmol/L Potassium 4.7 (3.5-5.1) mmol/L Chloride 103 (98-107) mmol/L Carbon Dioxide 26 (22-30) mmol/L Anion Gap 9 mmol/L BUN 13 (7-17) mg/dL Creatinine 0.61 (0.52-1.04) mg/dL Est GFR (CKD-EPI)AfAm >90 (>60 ml/min/1.73 sqM) Est GFR (CKD-EPI)NonAf >90 (>60 ml/min/1.73 sqM) Glucose 144 H (74-99) mg/dL Calcium 9.7 (8.4-10.2) mg/dL Total Bilirubin 0.5 (0.2-1.3) mg/dL AST 21 (14-36) U/L ALT 17 (4-34) U/L Alkaline Phosphatase 73 (38-126) U/L Total Protein 7.4 (6.3-8.2) g/dL Albumin 4.2 (3.5-5.0) g/dL Urine Color Light Yellow Urine Appearance Clear (Clear) Urine pH 6.0 (5.0-8.0) Ur Specific [place] 1.018 (1.001-1.035) Urine Protein Negative (Negative) Urine Glucose (UA) Negative (Negative) Urine Ketones Negative (Negative) Urine Blood Moderate H (Negative) Urine Nitrite Negative (Negative) Urine Bilirubin Negative (Negative) Urine Urobilinogen <2.0 (<2.0) mg/dL Ur Leukocyte Esterase Negative (Negative) Urine RBC 13 H (0-5) /hpf Urine WBC <1 (0-5) /hpf Urine Mucus Rare H (None) /hpf Disposition Clinical Impression: Hematuria Disposition: HOME SELF-CARE Condition: Good Instructions (If sedation given, give patient instructions): Hematuria (ED) Additional Instructions: Follow-up with PCP. Follow-up with urology because you had blood in your urine today. Take medication as prescribed. Prescriptions: Cephalexin [Keflex] 500 mg PO Q12HR 7 Days #14 cap Is patient prescribed a controlled substance at d/c from ED?: No Referrals: Luba Chance MD [Primary Care Provider] - 1-2 days Dominic Cazares MD [STAFF PHYSICIAN] - 1-2 days Time of Disposition: 20:00
[2024-06-20 20:26] VITALS: BP 156/80; PULSE 83; RESP 18; TEMP 98.1
== END 2024-06-20 20:28 | disposition home or self-care (01) ==
LOC: EC 15:27
DX: R31.9 Hematuria, unspecified (principal)
CPT/HCPCS: 36415; 80053; 85025; 81001; 74176; 99284; 96374; J1885

== ENCOUNTER → 2024-08-21 | Outpatient (CLI) | payer OTHER ==
--- NOTE | 2024-08-22 08:17 | MM ---
Reason for Exam: Screening (asymptomatic). Last mammogram was performed 2 year(s) and 7 month(s) ago. Patient History: First Full-Term at age 20. Postmenopausal. Risk Values: Pooja 5 year model risk: 1.2%. NCI Lifetime model risk: 5.8%. Prior Study Comparison: 05/06/2011 Screening Mammogram, [facility]. 12/06/2018 Bilateral Diagnostic Mammogram, [facility]. 01/04/2022 Bilateral MG screening mammo w CAD, [facility]. Tissue Density: There are scattered areas of fibroglandular density. Findings: Analyzed By CAD. Right breast: There is no suspicious group of microcalcifications or new suspicious mass. Benign-appearing calcifications right breast. Left breast: There is no suspicious group of microcalcifications or new suspicious mass. Benign-appearing calcifications left breast. Overall Assessment: Benign, BI-RAD 2 Management: Screening Mammogram of both breasts in [address] [facility] will attempt to contact patient to return for supplemental views and ultrasound if indicated. Patient should continue monthly self-breast exams. A clinical breast exam by your physician is recommended on an annual basis. This exam should not preclude additional follow-up of suspicious palpable abnormalities. Note on Pooja scores and lifetime risk: 1. A Pooja score greater than 3% is considered moderate risk. If this is the case, consider specialist referral to assess eligibility for a risk reducing agent. 2. If overall lifetime risk for the development of breast cancer is 20% or higher, the patient may qualify for future screening with alternating mammogram and breast MRI. [facility], , 08/22/2024 8:14 AM. Electronically signed and approved by: Jese Dunn DO
== END | disposition home or self-care (01) ==
LOC: RADMAMWWP 14:43
PROVIDERS: ATTEND Family Medicine
DX: Z12.31 Encounter for screening mammogram for malignant neoplasm of breast (principal); R92.323 Mammographic fibroglandular density, bilateral breasts; R92.1 Mammographic calcification found on diagnostic imaging of breast; Z78.0 Asymptomatic menopausal state
CPT/HCPCS: 77063; 77067